=== PATIENT | female | born 1975 | race Caucasian/White ===

== ENCOUNTER 2020-05-24 09:45 | Outpatient (REF) | payer OTHER, SELFPAY ==
--- NOTE | 2020-05-24 09:50 | MM_ITS ---
EXAMINATION: MM DIAGNOSTIC DIGITAL BREAST TOMOSYNTHESIS, BILATERAL CLINICAL INFORMATION: Status post right breast lumpectomy with radiation therapy. COMPARISON: Mammography: April 25, 2019, January 10, 2019, and December 27, 2018. TECHNIQUE: Digital breast tomosynthesis is performed in both the craniocaudal and mediolateral oblique views along with computer-aided detection (CAD). Synthesized 2D images are generated from the tomosynthesis. Spot magnification views of the right breast in craniocaudal and 90 degree mediolateral views also performed. FINDINGS: There are scattered areas of fibroglandular density (ACR BI-RADS breast composition Category b). Postsurgical changes seen within the right breast. No new abnormal dominant mass is seen within either breast. No suspicious grouping of microcalcifications is seen. Results are provided to the patient at time of visit by the technologist. MM/MM tomosynthesis diagnostic BI IMPRESSION: Postsurgical change right breast. No specific mammographic evidence of malignancy within the left breast. ASSESSMENT: BI-RADS 2: Benign RECOMMENDATION: Diagnostic mammography at time of next annual exam, due in 12 months. This patient's information was entered into a reminder system with a target due date for their next mammogram.
== END 2020-05-24 09:46 | disposition home or self-care (01) ==
LOC: HO.MAMMO 09:45
PROVIDERS: Visit Provider Internal Medicine Medical Oncology
DX: C50.911 Malignant neoplasm of unspecified site of right female breast (principal)
CPT/HCPCS: 77062; 77066

== ENCOUNTER 2020-12-27 07:54 | Outpatient (REF) | payer OTHER, SELFPAY ==
[2020-12-27 11:27] LABS: MANUAL DIFF FLAG NO
[2020-12-27 11:31] LABS: Basophils Percent Auto 0.3 % (0-2); Eosinophils Absolute Auto 0.3 X10*3/uL (0.0-0.4); Eosinophils Percent Auto 3.2 % (0-4); Hematocrit 42.8 % (37-47); Hemoglobin 13.9 g/dl (12.0-16.0); Imm Gran Abs Auto 0.09 X10*3/uL (0.00-0.03); Imm Gran Pct Auto 0.9 % (0.0-0.4); Lymphocytes Percent Auto 19.7 % (20-40); Mean Corpuscular HGB Conc 32.5 g/dl (31.0-35.0); Mean Corpuscular Hemoglobin 27.3 pg (27.0-33.0); Mean Corpuscular Volume 83.9 fL (80-98); Monocytes Absolute Auto 0.5 X10*3/uL (0.1-1.2); Monocytes Percent Auto 5.2 % (2-11); Neutrophils Absolute Auto 7.2 X10*3/uL (2.0-8.3); Neutrophils Percent Auto 70.7 % (45-73); Platelet Count 312 X10*3/uL (160-400); Red Cell Distribution Width 13.5 % (11.0-16.0); White Blood Count 10.1 X10*3/uL (4.8-10.8)
[2020-12-27 11:59] LABS: Alanine Aminotransferase 13 U/L (0-31); Albumin Level 4.2 g/dL (3.5-5.0); Anion Gap 17 (12-20); Aspartate Amino Transferase 15 U/L (5-31); Bilirubin Total 0.3 mg/dL (0.0-1.0); Blood Urea Nitrogen 14 mg/dL (9-16); Calcium 9.4 mg/dL (8.4-10.2); Carbon Dioxide 20 mmol/L (22-29); Chloride 107 mmol/L (96-108); Cholesterol 274 mg/dL; Estimated Glomerular Filt Rate > 60; Glucose Fasting 95 mg/dL (60-99); HDL Cholesterol 44 mg/dL; Potassium 4.2 mmol/L (3.3-5.1); Sodium 140 mmol/L (135-145); Total Protein 6.9 g/dL (6.5-8.0); Triglycerides 685 mg/dL
[2020-12-27 12:00] LABS: Alkaline Phosphatase 105 U/L (39-117)
[2020-12-27 12:09] LABS: Ferritin 82 ng/mL (10-250)
== END 2020-12-27 07:55 | disposition home or self-care (01) ==
LOC: HO.HMGCLDS 07:54
PROVIDERS: PCP Internal Medicine Medical Oncology; Visit Provider Internal Medicine Medical Oncology
DX: I10 Essential (primary) hypertension (principal); D64.9 Anemia, unspecified; E78.2 Mixed hyperlipidemia; E66.01 Morbid (severe) obesity due to excess calories
CPT/HCPCS: 36415; 80053; 80061; 82728; 85025

== ENCOUNTER 2021-03-11 09:29 | Outpatient (REF) | payer BC, SELFPAY ==
--- NOTE | ~2021-03-11 | XR_ITS ---
EXAMINATION: XR KNEE, RIGHT CLINICAL INFORMATION: Acute right knee pain. COMPARISON: None TECHNIQUE: Four views of the right knee. FINDINGS: Tricompartmental degenerative changes are seen. There is mild narrowing of the medial compartment with some tiny distal femoral osteophytes. Lateral compartment is not narrowed, but there are lateral marginal osteophytes from the tibial plateau and the distal femur. Some mild posterior osteophytes are noted arising from the patella and there is a small joint effusion present. XR/XR knee RT 4V IMPRESSION: Mild tricompartmental degenerative changes. No evidence of an acute osseous traumatic injury.
== END 2021-03-11 09:30 | disposition home or self-care (01) ==
LOC: HO.XRAY 09:29
PROVIDERS: PCP Internal Medicine Medical Oncology; Visit Provider Internal Medicine Medical Oncology
DX: M25.561 Pain in right knee (principal)
CPT/HCPCS: 73564

== ENCOUNTER 2021-04-25 08:53 | Outpatient (REF) | payer BC, SELFPAY ==
[2021-04-25 11:52] LABS: MANUAL DIFF FLAG NO
[2021-04-25 12:11] LABS: Basophils Percent Auto 0.4 % (0-2); Eosinophils Absolute Auto 0.3 X10*3/uL (0.0-0.4); Hematocrit 41.9 % (37-47); Hemoglobin 13.9 g/dl (12.0-16.0); Imm Gran Abs Auto 0.05 X10*3/uL (0.00-0.03); Imm Gran Pct Auto 0.6 % (0.0-0.4); Lymphocytes Absolute Auto 2.3 X10*3/uL (1.2-4.9); Lymphocytes Percent Auto 27.9 % (20-40); Mean Corpuscular HGB Conc 33.2 g/dl (31.0-35.0); Mean Corpuscular Hemoglobin 27.6 pg (27.0-33.0); Mean Corpuscular Volume 83.3 fL (80-98); Mean Platelet Volume 9.6 fL (9.4-12.3); Monocytes Absolute Auto 0.4 X10*3/uL (0.1-1.2); Monocytes Percent Auto 4.9 % (2-11); Neutrophils Absolute Auto 5.2 X10*3/uL (2.0-8.3); Neutrophils Percent Auto 62.2 % (45-73); Platelet Count 302 X10*3/uL (160-400); Red Blood Count 5.03 X10*6/uL (4.20-5.50); Red Cell Distribution Width 13.8 % (11.0-16.0); White Blood Count 8.3 X10*3/uL (4.8-10.8)
[2021-04-25 12:23] LABS: Alanine Aminotransferase 23 U/L (0-31); Albumin Level 4.1 g/dL (3.5-5.0); Alkaline Phosphatase 80 U/L (39-117); Anion Gap 11 (12-20); Aspartate Amino Transferase 21 U/L (5-31); Bilirubin Total 0.5 mg/dL (0.0-1.0); Blood Urea Nitrogen 8 mg/dL (9-16); Calcium 9.3 mg/dL (8.4-10.2); Carbon Dioxide 26 mmol/L (22-29); Chloride 107 mmol/L (96-108); Cholesterol 274 mg/dL; Estimated Glomerular Filt Rate > 60; Glucose Fasting 104 mg/dL (60-99); HDL Cholesterol 50 mg/dL; Potassium 4.3 mmol/L (3.3-5.1); Sodium 140 mmol/L (135-145); Total Protein 6.9 g/dL (6.5-8.0); Triglycerides 465 mg/dL
== END 2021-04-25 08:54 | disposition home or self-care (01) ==
LOC: HO.HMGCLDS 08:53
PROVIDERS: PCP Internal Medicine Medical Oncology; Visit Provider Internal Medicine Medical Oncology
DX: D64.9 Anemia, unspecified (principal); E78.2 Mixed hyperlipidemia; I10 Essential (primary) hypertension
CPT/HCPCS: 36415; 80053; 80061; 85025

== ENCOUNTER → 2021-05-06 08:10 | Outpatient (BNVA) | payer BC, SELFPAY | PROVIDERS: PCP Internal Medicine Medical Oncology; Visit Provider Surgery ==

== ENCOUNTER 2021-05-27 06:10 | Outpatient (REF) | payer BC, SELFPAY ==
--- NOTE | ~2021-05-27 | XR_ITS ---
EXAMINATION: XR CHEST CLINICAL INFORMATION: Obesity COMPARISON: None TECHNIQUE: 2 views of the chest were obtained. FINDINGS: The cardiac and mediastinal contours are normal. The lungs are clear. There is no pleural effusion. There are mild degenerative changes of the spine and curvature of the lower thoracic spine to the right. There are surgical clips projecting over the right breast. XR/XR chest 2V IMPRESSION: No evidence for acute disease in the chest.
[2021-05-27 06:20] LABS: MANUAL DIFF FLAG NO
--- NOTE | 2021-05-27 07:12 | ECG_ITS ---
Test Reason : sob Blood Pressure : / mmHG Vent. Rate : 055 BPM Atrial Rate : 055 BPM P-R Int : 200 ms QRS Dur : 070 ms QT Int : 424 ms P-R-T Axes : 022 002 006 degrees QTc Int : 405 ms Sinus bradycardia Low voltage QRS Borderline ECG When compared with ECG of 29-DEC-2009 13:12, Vent. rate has decreased BY 36 BPM Nonspecific T wave abnormality no longer evident in Lateral leads Referred By: Tom Cheema Electronically Signed By:CHERYL GIMENEZ MD
[2021-05-27 07:16] LABS: Basophils Percent Auto 0.2 % (0-2); Eosinophils Absolute Auto 0.2 X10*3/uL (0.0-0.4); Eosinophils Percent Auto 2.7 % (0-4); Hematocrit 43.1 % (37.0-47.0); Hemoglobin 14.2 g/dl (12.0-16.0); Imm Gran Abs Auto 0.02 X10*3/uL (0.00-0.03); Imm Gran Pct Auto 0.2 % (0.0-0.4); Lymphocytes Absolute Auto 1.9 X10*3/uL (1.2-4.9); Lymphocytes Percent Auto 22.1 % (20-40); Mean Corpuscular HGB Conc 32.9 g/dl (31.0-35.0); Mean Corpuscular Hemoglobin 27.4 pg (27.0-33.0); Monocytes Absolute Auto 0.4 X10*3/uL (0.1-1.2); Monocytes Percent Auto 4.6 % (2-11); Neutrophils Percent Auto 70.2 % (45-73); Platelet Count 317 X10*3/uL (160-400); Red Blood Count 5.19 X10*6/uL (4.20-5.50); Red Cell Distribution Width 13.5 % (11.0-16.0); White Blood Count 8.5 X10*3/uL (4.8-10.8)
[2021-05-27 07:25] LABS: Estimated Average Glucose 114 mg/dL; Hemoglobin A1c % 5.6 %
[2021-05-27 07:42] LABS: Alanine Aminotransferase 23 U/L (0-31); Albumin Level 4.3 g/dL (3.5-5.0); Alkaline Phosphatase 80 U/L (39-117); Anion Gap 13 (12-20); Aspartate Amino Transferase 20 U/L (5-31); Bilirubin Total 0.3 mg/dL (0.0-1.0); Blood Urea Nitrogen 14 mg/dL (9-16); C Reactive Protein 0.56 mg/dL (< or = 0.50); Calcium 9.7 mg/dL (8.4-10.2); Carbon Dioxide 26 mmol/L (22-29); Chloride 104 mmol/L (96-108); Cholesterol 182 mg/dL; Estimated Glomerular Filt Rate > 60; Glucose Random 119 mg/dL (60-115); HDL Cholesterol 45 mg/dL; Iron 43 mcg/dL (30-160); LDL Cholesterol Calculated 83 mg/dl; Percent Iron Saturation 13 % (15-50); Potassium 4.1 mmol/L (3.3-5.1); Sodium 139 mmol/L (135-145); Total Iron Binding Capacity 337 mcg/dL (228-428); Total Protein 6.9 g/dL (6.5-8.0); Triglycerides 270 mg/dL; Unsaturated Iron Binding 294 ug/dL
[2021-05-27 08:07] LABS: Ferritin 78 ng/mL (10-250); Insulin 40 uU/mL (2-29); TSH reflex Free T4 4.41 uIU/mL (0.32-4.0); Vitamin D 25-OH Total 27.9 ng/mL (>30)
[2021-05-27 08:14] LABS: Folate 15.2 ng/mL (> or = 4.0); Vitamin B12 391 pg/mL (200-900)
[2021-05-27 08:42] LABS: Free T4 (Free Thyroxine) 0.71 ng/dL (0.71-1.85)
[2021-05-30 12:01] LABS: Calcium (PTHI) 9.9 mg/dL (8.6-10.2); PTHI 39 pg/mL (14-64)
[2021-05-31 02:22] LABS: Zinc 78 mcg/dL (60-130)
[2021-05-31 21:56] LABS: Vitamin A 73 mcg/dL (38-98)
[2021-06-01 16:56] LABS: Vitamin B1 12 nmol/L (8-30)
== END 2021-05-27 06:11 | disposition home or self-care (01) ==
LOC: HO.LAB 06:10
PROVIDERS: PCP Internal Medicine Medical Oncology; Visit Provider Surgery
DX: E66.01 Morbid (severe) obesity due to excess calories (principal); E78.5 Hyperlipidemia, unspecified; I10 Essential (primary) hypertension; K21.9 Gastro-esophageal reflux disease without esophagitis
CPT/HCPCS: 36415; 71046; 80053; 80061; 82306; 82607; 82728; 82746; 83036; 83525; 83540; 83970; 84425; 84439; 84443; 84590; 84630; 85025; 86140; 93005

== ENCOUNTER → 2021-06-01 08:03 | Outpatient (BNVA) | payer BC, SELFPAY | PROVIDERS: PCP Internal Medicine Medical Oncology; Visit Provider Surgery ==

== ENCOUNTER 2021-06-03 09:24 | Outpatient (REF) | payer BC, SELFPAY ==
[2021-06-05 15:03] LABS: H Pylori Breath Test Negative (Negative)
== END 2021-06-03 09:25 | disposition home or self-care (01) ==
LOC: HO.LNP 09:24
PROVIDERS: Surgery; PCP Internal Medicine Medical Oncology; Visit Provider Physician Assistant
DX: E66.01 Morbid (severe) obesity due to excess calories (principal); I10 Essential (primary) hypertension; E78.5 Hyperlipidemia, unspecified; K21.9 Gastro-esophageal reflux disease without esophagitis; Z11.0 Encounter for screening for intestinal infectious diseases
CPT/HCPCS: 83013

== ENCOUNTER → 2021-06-06 08:21 | Outpatient (BNVA) | payer BC, SELFPAY | PROVIDERS: PCP Internal Medicine Medical Oncology; Visit Provider Dietitian, Registered | DX: E66.01 Morbid (severe) obesity due to excess calories (principal) | CPT/HCPCS: 97802 ==

== ENCOUNTER 2021-06-23 07:55 | Outpatient (REF) | payer BC, SELFPAY ==
--- NOTE | ~2021-06-23 | FL_ITS ---
EXAMINATION: XR FLUOROSCOPY UPPER GI WITH AIR CLINICAL INFORMATION: Obesity COMPARISON: None TECHNIQUE: Fluoroscopic assessment of the upper GI tract was performed in various upright and supine/prone obliquities utilizing thin and thick high density barium contrast material and effervescent granules. FINDINGS: Normal oral bolus control and transfer with posterior tilt of the epiglottis. No cricopharyngeal abnormality. The esophagus was normal in course, caliber, and contour. There was normal distensibility with no fixed segment of narrowing. No focal mucosal abnormality was identified. No significant esophageal dysmotility was observed. Contrast passed freely across the gastroesophageal junction into the stomach. No significant hiatal hernia. There was normal distensibility of the stomach with no focal abnormality identified. There was prompt gastric emptying into the duodenum which demonstrated a normal appearance. Minimal gastroesophageal reflux was observed. FLUOROSCOPY TIME: 1.7 minutes DOSE AREA PRODUCT: 28.563 Gy-cm2 (pathak-centimeter squared) FL/FL upper GI w air IMPRESSION: Minimal gastroesophageal reflux noted. Otherwise normal upper GI examination.
--- NOTE | ~2021-06-23 | US_ITS ---
EXAMINATION: US COMPLETE ABDOMEN WITH LIVER ELASTOGRAPHY CLINICAL INFORMATION: Morbid obesity due to excess calories. COMPARISON: None. TECHNIQUE: Real-time imaging of the abdominal viscera. Noninvasive ultrasound liver fibrosis assessment is performed using Mars ElastPQ point quantification shear wave elastography (pSWE) with a C5-2 MHz transducer. Multiple elastography samples are obtained. FINDINGS: PANCREAS: Normal. The visualized pancreatic head and body are normal in appearance. The remainder of the pancreas is obscured from visualization by the overlying bowel gas. ABDOMINAL AORTA: The proximal, middle, and distal aortic segments are normal in caliber. INFERIOR VENA CAVA: Visualized portions are normal. LIVER: The liver demonstrates prominent in size with normal Contour and increased echogenicity. No focal lesion or intrahepatic biliary duct dilatation. The right lobe measures 20.8 cm in length. The left lobe measures 14.8 cm in length. Portal flow is towards the liver (hepatopetal). Shear wave liver elastography median stiffness is 2.17 m/s (reference: normal median stiffness is 1.3 m/s or less). IQR/median stiffness to assess sampling precision is 0.08 (reference: good quality data set is IQR/median stiffness of 0.15 or less). GALLBLADDER: Normal. The gallbladder is physiologically distended without evidence of stones, sludge, polyps, wall thickening or pericholecystic fluid. COMMON BILE DUCT: Normal in caliber measuring 0.4 cm in diameter. RIGHT KIDNEY: Normal. No hydronephrosis. No renal calculi or focal parenchymal lesions. The kidney measures 12.4 cm in maximum dimension. LEFT KIDNEY: Normal. No hydronephrosis. No renal calculi or focal parenchymal lesions. The kidney measures 12.5 cm in maximum dimension. SPLEEN: Normal. The spleen measures 13.6 cm in maximum dimension. FREE FLUID: None. US/US abdomen comp w elastography IMPRESSION: 1. Mild hepatomegaly with hepatic steatosis. 2. Liver elastography: Measuremensts are consistent with compensated advanced chronic liver disease. REFERENCE: Society of Radiologists in Ultrasound Liver Stiffness Thresholds (2020): LIVER STIFFNESS THRESHOLDS: *Liver Stiffness equal or less than 1.3 m/s: High probability of being normal. *Liver Stiffness less than 1.7 m/s: In the absence of other known clinical signs, rules out compensated advanced chronic liver disease. *Liver Stiffness 1.7-2.1 m/s: Suggestive of compensated advanced chronic liver disease but need further test for confirmation. *Liver Stiffness over 2.1 m/s: Rules in compensated advanced chronic liver disease. *Liver Stiffness over 2.4 m/s: Suggestive of clinically significant portal hypertension. QUALITY OF DATA SET: *IQR/Median value equal or less than 0.15 implies a quality data set. *IQR/Median value over 0.15 implies a poor quality data set. SIGNIFICANT CHANGE FROM PRIOR EXAM: Significant change if liver stiffness measurement is 10% or greater from prior exam. OTHER CONSIDERATIONS: The stage of liver fibrosis may be overestimated in the setting of acute hepatitis, liver inflammation, elevated liver function tests, hepatic vascular congestion, obstructive cholestasis, non-fasting state, and infiltrative diseases such as amyloidosis and lymphoma. In some patients with NAFLD, the liver stiffness thresholds for compensated advanced chronic liver disease may be lower. In causes other than viral hepatitis and NAFLD, liver stiffness thresholds are not well established.
== END 2021-06-23 07:56 | disposition home or self-care (01) ==
LOC: HO.US 07:55
PROVIDERS: PCP Internal Medicine Medical Oncology; Visit Provider Surgery
DX: Z01.818 Encounter for other preprocedural examination (principal); E66.01 Morbid (severe) obesity due to excess calories; K21.9 Gastro-esophageal reflux disease without esophagitis; E78.5 Hyperlipidemia, unspecified; I10 Essential (primary) hypertension
CPT/HCPCS: 74246; 76705; 76981

== ENCOUNTER → 2021-07-01 08:08 | Outpatient (BNVA) | payer BC, SELFPAY | PROVIDERS: PCP Internal Medicine Medical Oncology; Visit Provider Dietitian, Registered | DX: E66.01 Morbid (severe) obesity due to excess calories (principal) | CPT/HCPCS: 97803 ==

== ENCOUNTER → 2021-07-04 08:05 | Outpatient (BNVA) | payer BC, SELFPAY | PROVIDERS: PCP Internal Medicine Medical Oncology; Visit Provider Surgery ==

== ENCOUNTER → 2021-07-28 08:07 | Outpatient (BNVA) | payer BC, SELFPAY | PROVIDERS: PCP Internal Medicine Medical Oncology; Referring Provider Physician Assistant; Visit Provider Dietitian, Registered | DX: E66.01 Morbid (severe) obesity due to excess calories (principal); Z68.42 Body mass index [BMI] 45.0-49.9, adult | CPT/HCPCS: 97803 ==

== ENCOUNTER → 2021-08-19 07:59 | Outpatient (BNVA) | payer BC, SELFPAY | PROVIDERS: PCP Internal Medicine Medical Oncology; Visit Provider Surgery ==

== ENCOUNTER 2021-12-13 10:01 | Outpatient (REF) | payer BC, SELFPAY ==
[2021-12-13 16:50] LABS: CT PCR NOT DETECTED (Not Detect.); NG PCR NOT DETECTED (Not Detect.)
[2021-12-14 09:21] LABS: BV Int Neg Control Negative (Negative); BV Int Pos Control Positive (Positive)
[2021-12-16 06:25] LABS: HPV mRNA E6/E7 rflx Not Detected (Not Detected)
== END 2021-12-13 10:02 | disposition home or self-care (01) ==
LOC: HO.LAB 10:01
PROVIDERS: PCP Internal Medicine Medical Oncology; Visit Provider Advanced Practice Midwife
DX: Z01.419 Encounter for gynecological examination (general) (routine) without abnormal findings (principal); Z11.51 Encounter for screening for human papillomavirus (HPV); R10.2 Pelvic and perineal pain
CPT/HCPCS: 87480; 87491; 87510; 87591; 87624; 87660; 88142

== ENCOUNTER 2023-07-17 09:52 | Outpatient (AMB) | payer BC, SELFPAY ==
--- NOTE | 2023-07-17 09:55 | A.OFFVIS_ITS ---
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 Doing well with no concerns. Seen by oncology at [facility]. Mammograms yearly at [facility] patient reports are normal. On Depo Lupron for menstrual cycle suppression best choice per oncologist due to her factor 5 Leiden. She tries to eat healthy and stays active with exercise. She is concerned about her weight gain since being on Depo Lupron, she has a consult with bariatric surgery this month. Regular monthly menses. Currently is sexually active. She denies vaginal itching and irritation. STI screening offered; she declines. Last pap smear 2021,, negative. proir-HPV+ PFS Medical History (Updated 07/17/23 @ 10:19 by Sheyla Auguste CNM) Factor V Leiden Ductal carcinoma in situ (DCIS) of right breast Morbid (severe) obesity due to excess calories Anxiety Depression GERD (gastroesophageal reflux disease) Hyperlipidemia Hypertension Morbid obesity Surgical History Hx of excision of dermoid cyst Hx of lumpectomy Family History Mother Hypertension Father Crohn disease Diabetes Hypertension Hyperlipidemia Obesity Sister Celiac disease Maternal Grandmother Melanoma Social History Alcohol intake: never Patient Tobacco Use Status: Former Tobacco user Current occupational status: employed 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 Female Reproductive History Menstrual Age of Menarche: 14 Total pregnancies: 0 Date of last pap smear: 12/13/21 (neg pap and hpv) Date of Mammogram: 05/24/20 (Birad 2) History of abnormal mammogram: Yes Review of Systems Const All systems reviewed & are unremarkable except as noted in HPI and below Reports as per HPI Eyes Reports no additional complaints ENT Reports no additional complaints Card Reports no additional complaints Resp Reports no additional complaints GI Reports as per HPI and Reports no additional complaints Reports as per HPI Musc Reports no additional complaints Skin/Breast Reports as per HPI Neuro Reports no additional complaints Psych Reports no additional complaints Endo Reports no additional complaints Donta/Lymph Reports no additional complaints Aller/Immun Reports no additional complaints Physical Exam Vital Signs: Last Vital Signs BP 100/68 07/17/23 09:56 BMI result Body Mass Index 51.6 Const General: cooperative, healthy appearing, no acute distress, well developed and alert Orientation/consciousness: patient oriented x3 HEENT Head: Yes normal to inspection Eyes General: appearance normal, both eyes and all related structures Neck Neck: Yes normal visual inspection Thyroid: Thyroid normal Chest Other: Right breast scar Chest palpation & inspection: normal inspection of the chest and other (no puckering, dimpling, peau de orange, retraction, discharge, masses) Breast/axilla inspection: normal inspection of the breasts Breast/axilla palpation: normal palpation of the breasts Resp Effort & Inspection: normal respiratory effort GI Inspection: Yes normal to inspection and Yes obesity Palpation (GI): Soft to palpation Rectal Exam - Female: deferred General: Yes bladder normal to palpation External Female Exam: normal external appearance and normal appearance of the urethra Speculum Exam - Vagina: normal appearance of the vagina, normal palpation and normal vaginal discharge Speculum Exam - Cervix: normal appearance of the cervix and normal palpation Bimanual exam- vagina & uterus: normal bimanual exam, normal palpation, uterine size normal, bladder normal to palpation, normal palpation and non-tender Bimanual Exam- Adnexa, other: no masses Skin General skin exam: no rashes or lesions noted Rashes: no rashes Neuro General: patient oriented x3 Cognition (Neuro): normal cognition Extrem General: Yes normal to inspection Psych Attitude: cooperative Thought process: Normal thought process present Assessment & Plan Assessment & Plan (1) Encounter for well woman exam with routine gynecological exam: Code(s): Z01.419 - Encounter for gynecological examination (general) (routine) without abnormal findings Plan Discussed: Current recommendations for pap smears per ASCCP guidelines. Breast awareness and periodic breast exams. Maintain a healthy lifestyle including a well balanced diet and routine exercise. Mammogram yearly. Colonoscopy >45, or at risk sooner. Advised to discuss with her primary care All of her questions and concerns were addressed to the best of my ability. 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 This note is constructed using voice recognition software. While every effort has been made to ensure accuracy, personnel representative errors may have been included. Coding Level of Care Code Est Pt Prev Care 40-64y(15691) Diagnoses Encounter for well woman exam with routine gynecological exam Z01.419
[2023-07-17 09:56] VITALS: BP 100/68; BMI 51.6
== END 2023-07-17 10:28 | disposition home or self-care (01) ==
LOC: HO.HWS 09:52
PROVIDERS: PCP Internal Medicine Medical Oncology; Visit Provider Advanced Practice Midwife
DX: Z01.419 Encounter for gynecological examination (general) (routine) without abnormal findings (principal)
CPT/HCPCS: 99396

== ENCOUNTER → 2023-07-17 09:52 | Outpatient (BNVA) | payer BC, SELFPAY | PROVIDERS: PCP Internal Medicine Medical Oncology; Visit Provider Advanced Practice Midwife ==

== ENCOUNTER 2024-05-05 08:05 | Outpatient (REF) | payer BC, SELFPAY ==
[2024-05-05 10:12] LABS: MANUAL DIFF FLAG NO
[2024-05-05 10:29] LABS: Basophils Percent Auto 0.4 % (0-2); Eosinophils Absolute Auto 0.3 X10*3/uL (0.0-0.4); Eosinophils Percent Auto 3.4 % (0-4); Hematocrit 42.4 % (37.0-47.0); Hemoglobin 13.9 g/dl (12.0-16.0); Imm Gran Abs Auto 0.04 X10*3/uL (0.00-0.03); Imm Gran Pct Auto 0.4 % (0.0-0.4); Lymphocytes Absolute Auto 2.6 X10*3/uL (1.2-4.9); Lymphocytes Percent Auto 26.9 % (20-40); Mean Corpuscular HGB Conc 32.8 g/dl (31.0-35.0); Mean Corpuscular Hemoglobin 28.1 pg (27.0-33.0); Mean Corpuscular Volume 85.7 fL (80.0-98.0); Mean Platelet Volume 10.2 fL (9.4-12.3); Monocytes Absolute Auto 0.4 X10*3/uL (0.1-1.2); Monocytes Percent Auto 4.6 % (2-11); Neutrophils Absolute Auto 6.2 x10*3/uL (2.0-8.3); Neutrophils Percent Auto 64.3 % (45-73); Platelet Count 325 X10*3/uL (160-400); Red Blood Count 4.95 X10*6/uL (4.20-5.50); Red Cell Distribution Width 13.1 % (11.0-16.0); White Blood Count 9.6 X10*3/uL (4.8-10.8)
[2024-05-05 11:29] LABS: Anion Gap 12 (12-20)
[2024-05-05 11:34] LABS: Albumin Level 4.1 g/dL (3.5-5.0); Alkaline Phosphatase 80 U/L (39-117); Bilirubin Total 0.5 mg/dL (0.0-1.0); Blood Urea Nitrogen 12 mg/dL (9-16); Calcium 9.6 mg/dL (8.4-10.2); Carbon Dioxide 27 mmol/L (22-29); Chloride 107 mmol/L (96-108); Cholesterol 188 mg/dL (<200); Estimated Glomerular Filt Rate > 60; Glucose Fasting 134 mg/dL (60-99); HDL Cholesterol 49 mg/dL (>40); LDL Cholesterol Calculated 91 mg/dL (<100); Potassium 3.8 mmol/L (3.3-5.1); Sodium 142 mmol/L (135-145); Total Protein 6.6 g/dL (6.5-8.0); Triglycerides 242 mg/dL (<150)
[2024-05-05 11:48] LABS: Ferritin 115 ng/mL (10-250); Free T4 (Free Thyroxine) 0.79 ng/dL (0.71-1.85); Thyroid Stimulating Hormone 4.12 uIU/mL (0.32-4.0)
[2024-05-05 13:08] LABS: Alanine Aminotransferase 44 U/L (0-31); Aspartate Amino Transferase 35 U/L (5-31)
== END 2024-05-05 08:06 | disposition home or self-care (01) ==
LOC: HO.HMGCLDS 08:05
PROVIDERS: PCP Internal Medicine Medical Oncology; Visit Provider Internal Medicine Medical Oncology
DX: C50.911 Malignant neoplasm of unspecified site of right female breast (principal); E66.01 Morbid (severe) obesity due to excess calories; D68.51 Activated protein C resistance; E03.9 Hypothyroidism, unspecified; D59.9 Acquired hemolytic anemia, unspecified
CPT/HCPCS: 36415; 80053; 80061; 82728; 84439; 84443; 85025

== ENCOUNTER 2025-02-17 07:55 | Outpatient (AMB) | payer OTHER, SELFPAY ==
--- OUTSIDE RECORDS SUMMARY | 2025-02-17 07:57 | XMS_ITS | Patient Health Record ---
Author Organization [facility] Address [address] [place] [address] Care Team Providers Care Wheel Lacer And Truer Name Role Phone Bhanu Armendariz MD Primary Care Provider Unavailab Mia Shanks Unavailable [phone] Allergies No Known Allergies Reason For Referral No Information Medications Medication SIG (Take, Route, Frequency, Duration) Notes Start Date End Date Status Metoprolol Tartrate 50 MG 1 tablet with food Orally Twice a day; Duration: 30 day(s) Active hydrALAZINE HCl 10 MG 1 tablet with food Orally Four times a day; Duration: 30 day(s) Active Ciclopirox 8 % APPLY DAILY TO SKIN TO AFFECTED AREA EVERY DAY FOR 30 DAYS; Duration: 30 Active Lupron Active ARIPiprazole 5 MG 1 tablet Orally Once a day; Duration: 30 day(s) Active Sertraline HCl 100 MG 1 tablet Orally On ce a day; Duration: 30 day(s) Active Atorvastatin Calcium 10 MG 1 tablet Oral ly Once a day; Duration: 30 day(s) Active Anastrozole 1 MG 1 tablet Orally Once a day; Duration: 30 day(s) Active Immunizations Vaccine Route Administration Date Status Comme nts Influenza Unknown 01/29/2025 Refused Social History Tobacco Use: Social History Observation Description Date Details (start date - stop date) Never Smoker NA - NA Tobacco use other than smoking: Question Answer Notes Are you an other tobacco user? No Tobacco Control (Standard) Question Answer Notes Tobacco use: Nonsmoker Additional Findings: Tobacco non-user Ex-cigaret te smoker AUDIT-C (Standard) Question Answer Notes Did you have a drink containing alcohol in the p ast year? No Points 0 Interpretation Negative Problems Problem Type SNOMED Code ICD Code Onset Dates Problem Status W/U Status Risk Notes Problem Tinea unguium (115757103) Tinea unguium (B35.1) Active confirmed Chronic,Rx management (4) Vital Signs Blood pressure diastolic 81 mm Hg 01/29/2025 Height 5ft5in in 01/29/2025 Blood pressure systolic 124 mm Hg 01/29/2025 Weight 300 lbs 01/29/2025 BMI 49.92 kg/m2 01/29/2025 Encounters Encounter [facility] [address] 06/02/2024 Mia Black Tinea unguium B35.1 ; Pain in right toe(s) M79.674 and Pain in left toe(s) M79.[address] [address] 01/29/2025 Mia Black Tinea unguium B35.1 ; Pain in right toe(s) M79.674 and Pain in left toe(s) M79.[address] [address] 10/30/2024 Mia Black [address] [address] 01/27/2025 Mia Black Assessments Encounter Date Diagnosis (ICD Code) Assessment Notes Treatment Notes Treatment Clinical Notes Section Notes 06/02/2024 Tinea unguium (ICD-10 - B35.1) Chronic,Rx management (4) 06/02/2024 Pain in right toe(s) (ICD-10 - M79.674) 01/29/2025 Tinea unguium (ICD-10 - B35.1) Chronic,Rx management (4) EBM Medical prescription ordered and faxed 01/29/2025 Pain in right toe(s) (ICD-10 - M79.674) 06/02/2024 Pain in left toe(s) (ICD-10 - M79.675) 01/29/2025 Pain in left toe(s) (ICD-10 - M79.675) Plan Of Treatment Pending Test Test Name Order Date *Liver Function Test (LFT) 03/06/2022 [id number] Plate 05/29/2022 [id number]-Iixvwisp Plate 06/04/2023 72252- Debride <25 sq cm 06/12/2022 Next Appt Details Provider Name:Mia Tian , 07/23/2025 08:00:00 AM, [address] [place], [address], Insurance Providers Payer Name Payer Address Payer Phone Subscriber Number Group Number Insured Name Patient Relationship to Insured Coverage Start Date Coverage End Date [employer] [address] [facility] [id number] Alexa Beauchamp Self - patient is the insured Medical (General) History Medical History History ICD Code Anxiety Cancer Depression Diverticulosis Headaches/Migraines High blood pressure Chicken pox Transfusions Surgical History Surgery Date(Month/Year) lumpectomy 06/2019
--- NOTE | 2025-02-17 08:01 | A.OFFVIS_ITS ---
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: Fur Storage Clerk Present Allergies No Known Allergies Allergy (Verified 02/17/25 08:09) Medication List - Last Reconciled 02/17/25 by Sherrell Dejesus LPN anastrozole 1 mg PO DAILY atorvastatin (Lipitor) 10 mg PO DAILY bupropion HCl XL (Wellbutrin XL) 300 mg PO QAM cholecalciferol (vitamin D3) 25 mcg PO DAILY docusate sodium (Stool Softener) 100 mg PO DAILY fluoxetine (Prozac) 40 mg PO DAILY hydralazine 40 mg PO leuprolide (Lupron Depot) 7.5 mg IM Q4W metoprolol succinate ER 100 mg PO DAILY multivitamin with minerals 1 cap PO DAILY Is last menstrual period known: No Patient : No HPI Comments Details: Patient is a premenopausal woman presenting for annual examination. 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 On Depo Lupron-[facility]. Hx. DSIC, Factor V Leiden. Currently is sexually active. She denies vaginal itching or irritation. STI screening offered; she accepts, declines blood work. She tries to eat healthy and stays active with exercise. Denies family history of breast, ovarian or colon cancer. Last pap smear 2021, negative. Mammogram: 2019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 Female Reproductive History Menstrual Age of Menarche: 14 control method: none Total pregnancies: 0 Date of last pap smear: 12/14/21 History of abnormal pap smear: No History of STI: No Date of Mammogram: 06/03/25 History of abnormal mammogram: Yes Review of Systems Const All systems reviewed & are unremarkable except as noted in HPI and below Reports as per HPI Eyes Reports no additional complaints ENT Reports no additional complaints Card Reports no additional complaints Resp Reports no additional complaints GI Reports as per HPI and Reports no additional complaints Reports as per HPI Musc Reports no additional complaints Skin/Breast Reports as per HPI Neuro Reports no additional complaints Psych Reports no additional complaints Endo Reports no additional complaints Donta/Lymph Reports no additional complaints Aller/Immun Reports no additional complaints Physical Exam Vital Signs: Last Vital Signs BP 138/84 02/17/25 08:05 BMI result Body Mass Index 48.5 Const General: cooperative, healthy appearing, no acute distress, well developed and alert Orientation/consciousness: patient oriented x3 HEENT Head: Yes normal to inspection Eyes General: appearance normal, both eyes and all related structures Neck Neck: Yes normal visual inspection Thyroid: Thyroid normal Chest Chest palpation & inspection: normal inspection of the chest and other (no puckering, dimpling, peau de orange, retraction, discharge, masses) Breast/axilla inspection: normal inspection of the breasts Breast/axilla palpation: normal palpation of the breasts Resp Effort & Inspection: normal respiratory effort GI Inspection: Yes normal to inspection Palpation (GI): Soft to palpation Rectal Exam - Female: deferred General: Yes bladder normal to palpation External Female Exam: normal external appearance and normal appearance of the urethra Speculum Exam - Vagina: normal appearance of the vagina, normal palpation and normal vaginal discharge Speculum Exam - Cervix: normal appearance of the cervix and normal palpation Bimanual exam- vagina & uterus: normal bimanual exam, normal palpation, uterine size normal, bladder normal to palpation, normal palpation and non-tender Bimanual Exam- Adnexa, other: no masses Skin General skin exam: no rashes or lesions noted Rashes: no rashes Neuro General: patient oriented x3 Cognition (Neuro): normal cognition Extrem General: Yes normal to inspection Psych Attitude: cooperative Thought process: Normal thought process present Assessment & Plan Assessment & Plan (1) Encounter for annual routine gynecological examination: Code(s): Z01.419 - Encounter for gynecological examination (general) (routine) without abnormal findings Category: Medical Plan Discussed: Current recommendations for pap smears per ASCCP guidelines. Breast awareness and periodic breast exams. Mammogram yearly. Advised to have [facility] send records yearly. Maintain a healthy lifestyle including a well balanced diet and routine exercise. Use condoms for STI and prevention. GC chlamydia and BV panel obtained. Colonoscopy >45, or at risk sooner. Advised to discuss with her PCP Patient verbalizes understanding and agrees to the plan of care. She was given opportunity to ask questions and all questions were answered to the best of my ability. 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 This note is constructed using voice recognition software. While every effort has been made to ensure accuracy, political reporter errors may have been included. Orders: Orders Bacterial Vaginosis Panel Today Z11.3 - Encounter for screening for infections with a predominantly sexual mode of transmission CT NG by PCR Vag/Cerv Today Z11.3 - Encounter for screening for infections with a predominantly sexual mode of transmission Coding Level of Care Code Est Pt Prev Care 40-64y(62617) Diagnoses Encounter for annual routine gynecological examination Z01.419
[2025-02-17 08:05] VITALS: BP 138/84; BMI 48.5
== END 2025-02-17 09:15 | disposition home or self-care (01) ==
LOC: HO.HWS 07:55
PROVIDERS: PCP Internal Medicine Medical Oncology; Visit Provider Advanced Practice Midwife
DX: Z01.419 Encounter for gynecological examination (general) (routine) without abnormal findings (principal)
CPT/HCPCS: 99396; 99459

== ENCOUNTER 2025-02-17 07:55 | Outpatient (REF) | payer OTHER, SELFPAY ==
[2025-02-17 17:05] LABS: Bacterial Vaginosis PCR POSITIVE (Negative); Candida Group PCR NOT DETECTED (Not Detect); Candida glab krusei PCR NOT DETECTED (Not Detect); Trichomonas vaginalis PCR NOT DETECTED (Not Detect)
[2025-02-17 17:37] LABS: CT PCR NOT DETECTED (Not Detect.); NG PCR NOT DETECTED (Not Detect.)
== END 2025-02-17 07:56 | disposition home or self-care (01) ==
LOC: HO.LNP 07:55
PROVIDERS: PCP Internal Medicine Medical Oncology; Visit Provider Advanced Practice Midwife
DX: Z01.419 Encounter for gynecological examination (general) (routine) without abnormal findings (principal); Z20.2 Contact with and (suspected) exposure to infections with a predominantly sexual mode of transmission; Z11.8 Encounter for screening for other infectious and parasitic diseases; Z79.899 Other long term (current) drug therapy
CPT/HCPCS: 81515; 87491; 87591

== ENCOUNTER 2025-03-05 05:59 | Inpatient (IN) | payer OTHER, SELFPAY ==
--- OUTSIDE RECORDS SUMMARY | 2024-12-17 09:39 | XMS_ITS ---
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 Name Role Phone Bhanu Armendariz III, MD Primary Care Provider Bhanu Armendariz [facility] [phone] REASON FOR VISIT Zepbound denial from [facility] Social History Sex Assigned At : Social History Observation Description Sex Assigned At Female Encounters Encounter Location Date Provider Diagnosis Bhanu Armendariz III, MD [address] [place] [address] [place] [address] 12/17/2024 Bhanu Armendariz Plan Of Treatment Next Appt Details Provider Name:Bhanu Armendariz, 03/06/2025 09:00:00 AM, [address] [place] [address] [place], [address], Provider Name:Bhanu Armendariz, 03/08/2026 02:00:00 PM, [address] [place] [address] [place], [address], Progress Notes * Alexa ROSSDOB:[birth year] (49 yo F)Acc No.[id number]:12/17/2024 Patient: Alexa LEMUS :1975 A ge:49 Y S ex:Female Address:[address] [place] [address] * * Date:
[2025-03-05] VITALS (8 sets, daily range): BP systolic 101–130; BP diastolic 57–80; PULSE 73–106; RESP 16–20; TEMP 36.4–37.1; O2SAT 95–97; BMI 47.8
--- NOTE | ~2025-03-05 | CT_ITS ---
EXAMINATION: CT ABDOMEN AND PELVIS WITH CONTRAST CLINICAL INFORMATION: r/o perirectal abcess, pain, erythema COMPARISON: Abdomen ultrasound on June 23, 2021. TECHNIQUE: Multidetector volumetric images were obtained from the superior aspect of the liver through the pubic symphysis following administration 100 cc of Omnipaque 350 intravenous contrast. Sagittal and coronal reformatted images were obtained on the technologist's workstation. Oral contrast: No This CT examination was performed using dose optimization techniques as appropriate, variously including the following: *Automated exposure control *Adjustment of mA and/or kV according to patient size (this includes techniques or standardized protocols for targeted exams where dose is matched to indication/reason for exam; i.e. extremities or head) *Use of iterative reconstruction technique FINDINGS: LUNG BASES: Lung bases are clear. No pleural effusions. LIVER: Hepatomegaly measuring 22.6 cm. Diffuse decreased echogenicity is compatible with hepatic steatosis. No focal lesions. BILIARY: Normal gallbladder. No biliary ductal dilatation. PANCREAS: Unremarkable. SPLEEN: Spleen measures 13.2 cm. No focal lesions. ADRENAL GLANDS: No nodules. KIDNEYS AND URETERS: No focal renal lesions or hydronephrosis. GASTROINTESTINAL TRACT: No bowel distention. Normal appendix in the right lower quadrant. Scattered diverticula along the sigmoid colon. Note the rectum is mildly low lying. No fat stranding or abscess surrounding the rectum. PERITONEUM/RETROPERITONEUM: No free fluid, fluid collection or free air. PERINEUM: There is an approximately 3.6 x 3.4 cm irregular hypodense area in the left perineum (3:103), surrounded by thick wall and fatty stranding of the local soft tissues. This left perineal abscess/phlegmon extends for approximately 6.8 cm in longest dimension on the sagittal plane (8:79). Note that the abnormal soft tissue surrounding this abscess/phlegmon extends towards the anus, without clear flat plane with the anal margins. ABDOMINAL WALL: Small fat-containing umbilical hernia. LYMPH NODES: No bulky adenopathy. VASCULAR: Mild atherosclerotic disease with calcifications. No abdominal aortic aneurysm. PELVIC VISCERA: Decompressed urinary bladder appears unremarkable. No suspicious pelvic masses. OSSEOUS STRUCTURES: No acute or destructive bone lesions. CT/CT abdomen pelvis w IV con IMPRESSION: 1. Left perineal abscess/phlegmon extending up to 6.8 cm long. Surrounding abnormal soft tissue wall and fat stranding extends towards the anus. No findings to suggest perirectal abscess. 2. Hepatomegaly. Hepatic steatosis. 3. Scattered sigmoid colonic diverticula. Electronically signed by: Yasmani Gaming MD 03/05/2025 09:53 AM EDT
--- NOTE | 2025-03-05 06:32 | ED.SKABFB ---
HPI - Skin/Abscess/Foreign Bdy General Chief complaint: Skin/Abscess/Foreign Body Stated complaint: cyst Time Seen by Provider: 03/05/25 06:10 Source: patient Mode of arrival: ambulatory Limitations: no limitations History of Present Illness ED Provider: Dr. Lila Arizmendi HPI narrative: Patient comes in the emergency room complaining of pain in the left buttocks. Patient states it started 2-3 days ago, gradually getting worse. Patient states that she went to see her PCP and they asked her to come to emergency room for further evaluation. Patient states that she is not sure if it is a cyst or a hemorrhoid. Patient denies fever chills, however, patient states that she has been sweating quite a bit. She is not sure if she is having a fever or it is because of the pain. Denies nausea vomiting or diarrhea. Related Data Home Medications ?Medication ?Instructions ?Recorded ?Confirmed anastrozole 1 mg tablet 1 mg PO DAILY 05/06/21 02/17/25 leuprolide 7.5 mg intramuscular 7.5 mg IM Q4W 12/13/21 02/17/25 syringe kit (Lupron Depot) atorvastatin 10 mg tablet (Lipitor) 10 mg PO DAILY 02/17/25 02/17/25 bupropion HCl 300 mg 24 hr tablet, 300 mg PO QAM 02/17/25 02/17/25 extended release (Wellbutrin XL) cholecalciferol (vitamin D3) 25 25 mcg PO DAILY 02/17/25 02/17/25 mcg (1,000 unit) capsule docusate sodium 100 mg capsule 100 mg PO DAILY 02/17/25 02/17/25 (Stool Softener) fluoxetine 20 mg capsule (Prozac) 40 mg PO DAILY 02/17/25 02/17/25 hydralazine 10 mg tablet 40 mg PO 02/17/25 02/17/25 metoprolol succinate 50 mg 100 mg PO DAILY 02/17/25 02/17/25 tablet,extended release 24 hr multivitamin with minerals 1 cap PO DAILY 02/17/25 02/17/25 Allergies Allergy/AdvReac Type Severity Reaction Status Date / Time No Known Allergies Allergy Verified 03/05/25 06:02 Review of Systems Review of Systems: Constitutional : No Weight loss, No Fever, No Chills, No Night Sweats, No Fatigue, No Malaise ENT/Mouth : No Hearing loss, No Ear Pain, No Nasal Congestion, No Sinus Pain, No Hoarseness, No sore throat, No Rhinorrhea, No Swallowing Difficulty Eyes: No Eye Pain, No Swelling, No Redness, No Foreign Body, No Discharge, No Vision Changes Cardiovascular : No Chest Pain, No SOB, No Dyspnea on Exertion, No Orthopnea, No Edema, No Palpitations Respiratory : No Cough, No Sputum, No Wheezing, No Smoke Exposure, No Dyspnea Gastrointestinal : No Nausea, No Vomiting, No Diarrhea, No Constipation, No abdominal Pain, No Hematochezia, No Melena Genitourinary : no irregular bleeding, No Dysuria, No Urinary Frequency, No Hematuria, No Urinary Incontinence, No Urgency, No Flank Pain, No Urinary Flow Changes, No Hesitancy Musculoskeletal : No joint pain, No Myalgias, No Joint Swelling Skin : Complaining of pain and swelling in the left buttocks adjacent to the anus Neuro : No Weakness, No Numbness, No Paresthesias, No Loss of Consciousness, No Dizziness, No Headache Psych : No Anxiety/Panic, No Depression, No SI/HI/AH/VH, No Social Issues, Heme/Lymph: No Bruising, No Bleeding,No Lymphadenopathy Endocrine : No Polyuria, No Polydipsia, No Temperature Intolerance PMFSH Past Medical History Medical History Factor V Leiden Ductal carcinoma in situ (DCIS) of right breast Morbid (severe) obesity due to excess calories Anxiety Depression GERD (gastroesophageal reflux disease) Hyperlipidemia Hypertension Morbid obesity Surgical History Hx of excision of dermoid cyst Hx of lumpectomy Family History Family History Mother Hypertension Father Crohn disease Diabetes Hypertension Hyperlipidemia Obesity Sister Celiac disease Maternal Grandmother Melanoma Social History Social History Alcohol intake: never Patient Tobacco Use Status: Former Tobacco user Smoked in Last 30 Days: No Use of substances other than those prescribed or required for medical reasons: Yes Substance Use Type: Marijuana Substance Use Frequency: Daily Last Used Substance: Days (ago) Advance Directives: No Advance Directives Information Provided: Yes Patient : No Current occupational status: employed 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 Oriented X3. No acute distress. Eyes: Pupils equal, round and reactive to light. ENT: Pharynx normal. Neck: Normal inspection. Neck supple. No lymph nodes noted. No crepitus CVS: Normal heart rate and rhythm. Pulses normal. Normal S1 and S2 Respiratory: No respiratory distress. Breath sounds normal. No Wheezing. No rales Abdomen: Soft and nontender. No rigidity. No distention. Skin: Skin warm and dry. Normal skin color. Normal skin turgor. In the left buttocks adjacent to the anus, there is a 10 cm x 10 cm erythematous patch. No palpable masses, no drainage. Extremities: No lower extremity edema. No Lacerations. No Rash Neuro: Oriented X 3. No motor deficit. No sensory deficit. Moving all extremities. No slurred speech. CN 2 through 12 grossly intact Psych: calm, cooperative, normal affect Vital Signs: Vital Signs: Last Vital Signs Temp 97.6 F 03/05/25 09:27 Pulse 83 03/05/25 09:27 Resp 20 03/05/25 09:27 BP 118/75 03/05/25 09:27 Pulse Ox 95 03/05/25 09:27 O2 Del Method Room Air 03/05/25 09:27 BMI result Body Mass Index 47.8 Course Course Course Narrative: In the left side of the buttocks there is a large 10 cm x 10 cm erythematous patch. Patient does not have hemorrhoids. This may be cellulitis versus a fistula versus perirectal abscess. CT scan of the pelvis has been ordered. Patient receiving IV morphine and Zofran At this time, 07:10, the patient is being treated Empirically with IV fluids based on ideal weight of 55 kg, patient is obese. Patient also getting vanc and Zosyn. CT scan has been done, but results are pending. At this time, 07:10, sign-out given to my colleague Dr. Couch Reevaluation(s) Reevaluation #1: DR. Couch's progress note: I assumed care for this patient at 07:[address] Arizmendi, 49-year-old female came in with severe left side anal pain, CT is consistent with perianal cellulitis and abscess, patient also meet criteria for SIRS, patient was given IV fluids, vancomycin by Dr. Ndiaye, will start on Zosyn. Patient is/PI and D of her left hand abscess please refer to procedure note. Improvement of lactic acid after fluids now it is 1.3. Case discussed with Dr Ramirez. Time: 10:51 Medications Administered Discontinued Medications Generic Name Dose Route Start Last Admin Trade Name Freq PRN Reason Stop Dose Admin Vancomycin HCl 2,000 mg in 500 mls @ 250 mls/hr 03/05/25 07:04 03/05/25 07:33 Vancomycin/Ns IV 03/05/25 09:03 250 mls/hr ONCE ONE Administration Sodium Chloride 2,000 mls @ 999 mls/hr 03/05/25 07:04 03/05/25 07:13 Ns IVCONT 03/05/25 09:04 999 mls/hr .Q2H1M ONE Administration Iohexol 100 ml 03/05/25 08:34 03/05/25 08:44 Iohexol 350 Mg/Ml 100 Ml Infus..Btl IV 03/05/25 08:35 100 ml ONCE ONE Administration Lidocaine HCl 5 ml 03/05/25 10:24 03/05/25 10:37 Lidocaine Hcl 1 % Mpf 5 Ml Vial SUBCUT 03/05/25 10:25 5 ml ONCE ONE Administration Morphine Sulfate 4 mg 03/05/25 06:33 03/05/25 07:06 Morphine Sulfate 4 Mg/Ml Cartridge IVPUSH 03/05/25 06:34 4 mg ONCE ONE Administration Protocol Ondansetron HCl 4 mg 03/05/25 06:33 03/05/25 07:06 Ondansetron Hcl 4 Mg/2 Ml Vial IVPUSH 03/05/25 06:34 4 mg ONCE ONE Administration Medical Decision Making Differential Diagnosis Differential Diagnoses: The differential diagnosis associated with the presentation includes (Perianal abscess, cellulitis, perirectal abscess, sepsis, electrolyte derangement, severe anemia.) Lab Data 03/05/25 06:35 03/05/25 06:35 Labs: Lab Results 03/05/25 03/05/25 Range/Units 06:35 09:36 WBC 17.7 H (4.8-10.8) X10*3/uL RBC 4.21 (4.20-5.50) X10*6/uL Hgb 12.1 (12.0-16.0) g/dl Hct 35.4 L (37.0-47.0) % MCV 84.1 (80.0-98.0) fL MCH 28.7 (27.0-33.0) pg MCHC 34.2 (31.0-35.0) g/dl RDW 13.5 (11.0-16.0) % Plt Count 308 (160-400) X10*3/uL MPV 10.0 (9.4-12.3) fL Immature Gran % (Auto) 0.8 H (0.0-0.4) % Neut % (Auto) 83.5 H (45-73) % Lymph % (Auto) 8.7 L (20-40) % [place] % (Auto) 5.6 (2-11) % Eos % (Auto) 1.2 (0-4) % Baso % (Auto) 0.2 (0-2) % Lymph # (Auto) 1.5 (1.2-4.9) X10*3/uL [place] # (Auto) 1.0 (0.1-1.2) X10*3/uL Eos # (Auto) 0.2 (0.0-0.4) X10*3/uL Baso # (Auto) 0.0 (0.0-0.2) X10*3/uL Abs Immat Gran (auto) 0.15 H (0.00-0.03) X10*3/uL Absolute Neuts (auto) 14.8 H (2.0-8.3) x10*3/uL Absolute Nucleated RBC 0.000 (0.0-0.012) X10*3/uL Nucleated RBC % (auto) 0.0 (0.0-0.2) /100WBC Sodium 136 (135-145) mmol/L Potassium 3.3 (3.3-5.1) mmol/L Chloride 101 (96-108) mmol/L Carbon Dioxide 21 L (22-29) mmol/L Anion Gap 17 (12-20) BUN 11 (9-16) mg/dL Creatinine 0.69 (0.5-1.4) mg/dL Estim Creat Clear Calc 137.3 Estimated GFR > 60 Random Glucose 272 H (60-115) mg/dL Lactic Acid 3.3 H* (0.5-2.0) mmol/L Lactic Acid F/U @ 2Hr 1.3 (0.5-2.0) mmol/L Calcium 9.5 (8.4-10.2) mg/dL Total Bilirubin 0.8 (0.0-1.0) mg/dL Direct Bilirubin 0.3 (0.0-0.5) mg/dL AST 25 (5-31) U/L ALT 24 (0-31) U/L Alkaline Phosphatase 97 (39-117) U/L Total Protein 7.1 (6.5-8.0) g/dL Albumin 4.0 (3.5-5.0) g/dL Beta HCG, Quant < 2 mIU/mL Procedures Abscess I/D Site: other (Perianal abscess) Side (if applicable): left Local Anesthetic: lidocaine 1% Amount of anesthesia used (mL): 5 Technique: incised with blade Amount of fluid expressed (mL): 15 Sent for culture/gram staining?: No Irrigation: No Discharge Plan Discharge Clinical Impression: Abscess, perianal, Sepsis Patient Disposition: Admitted As Inpatient
[2025-03-05 07:00] LABS: Hematocrit 35.4 % (37.0-47.0); Hemoglobin 12.1 g/dl (12.0-16.0); Imm Gran Abs Auto 0.15 X10*3/uL (0.00-0.03); Imm Gran Pct Auto 0.8 % (0.0-0.4); Lymphocytes Absolute Auto 1.5 X10*3/uL (1.2-4.9); Mean Corpuscular HGB Conc 34.2 g/dl (31.0-35.0); Mean Corpuscular Hemoglobin 28.7 pg (27.0-33.0); Mean Corpuscular Volume 84.1 fL (80.0-98.0); NRBC Abs Auto 0.000 X10*3/uL (0.0-0.012); NRBC Pct Auto 0.0 /100WBC (0.0-0.2); Red Blood Count 4.21 X10*6/uL (4.20-5.50)
[2025-03-05 07:01] LABS: Platelet Count 308 X10*3/uL (160-400); White Blood Count 17.7 X10*3/uL (4.8-10.8)
[2025-03-05 07:08] LABS: Alanine Aminotransferase 24 U/L (0-31); Albumin Level 4.0 g/dL (3.5-5.0); Alkaline Phosphatase 97 U/L (39-117); Anion Gap 17 (12-20); Aspartate Amino Transferase 25 U/L (5-31); Blood Urea Nitrogen 11 mg/dL (9-16); Calcium 9.5 mg/dL (8.4-10.2); Carbon Dioxide 21 mmol/L (22-29); Chloride 101 mmol/L (96-108); Creatinine Clr Calc Pharmacy 137.3; Estimated Glomerular Filt Rate > 60; Potassium 3.3 mmol/L (3.3-5.1); Sodium 136 mmol/L (135-145); Total Protein 7.1 g/dL (6.5-8.0)
--- OUTSIDE RECORDS SUMMARY | 2025-03-05 07:25 | XMS_ITS | Patient Health Record ---
Author Organization [facility] Address [address] [facility] [place] [address] Care Team Providers Care Tableau Lead Name Role Phone Bhanu Armendariz MD Primary Care Provider Unavailab Mia Shanks Unavailable [phone] Allergies No Known Allergies Reason For Referral [...] W/U Status Risk Notes Problem Tinea unguium (039629707) Tinea unguium (B35.1) Active confirmed Chronic,Rx management (4) Vital Signs Blood pressure diastolic 81 mm Hg 01/29/2025 Height 5ft5in in 01/29/2025 Blood pressure systolic 124 mm Hg 01/29/2025 Weight 300 lbs 01/29/2025 BMI 49.92 kg/m2 01/29/2025 Encounters Encounter Location Date [facility] [address] 06/02/2024 Mia Black Tinea unguium B35.1 ; Pain in right toe(s) M79.674 and Pain in left toe(s) M79.[address] [address] 01/29/2025 Mia Black Tinea unguium B35.1 ; Pain in right toe(s) M79.674 and Pain in left toe(s) M79.[address] [address] 10/30/2024 Mia Black [address] [address] 01/27/2025 Mia Black Assessments Encounter Date Diagnosis [...] Order Date *Liver Function Test (LFT) 03/06/2022 93127-Nffjmivv Plate 05/29/2022 [id number]-Wzgusyye Plate 06/04/2023 20397- Debride <25 sq cm 06/12/2022 Next Appt Details Provider Name:Mia Tian , 07/23/2025 08:00:00 AM, [address] [place], [address], Insurance Providers Payer Name Payer Address Payer Phone Subscriber Number Group Number Insured Name Patient Relationship to Insured Coverage Start Date Coverage End Date [facility] [address] [facility] [id number] Alexa Beauchamp Self - patient is the insured Medical (General) History Medical History History ICD Code Anxiety Cancer Depression Diverticulosis Headaches/Migraines High blood pressure Chicken pox Transfusions Surgical History Surgery Date(Month/Year) lumpectomy 06/2019
[2025-03-05] MEDS: vancomycin/NS 2,000 MG/500 ML PLAST..BAG 250 MG IV (07:33)
--- NOTE | 2025-03-05 08:28 | PC.NURSE ---
Pt out of room for CT scan
[2025-03-05] MEDS: iohexoL 350 MG/ML 100 ML INFUS..BTL IV (08:44)
[2025-03-05 08:47] LABS: Reflex Lactate? Lactic Acid Added
--- NOTE | 2025-03-05 09:35 | PC.NURSE ---
Addendum entered by Jaz Lux RN 03/05/25 09:35: Fluids paused for CT scan and bathroom. Original Note: Fluids infusing slowly d/t positional IV access. Repeat lactic being drawn at this time.
[2025-03-05 09:57] LABS: ~Lactic Acid-LAB USE ONLY 1.3 mmol/L (0.5-2.0)
[2025-03-05] MEDS: Lidocaine HCl 1 % MPF 5 ML VIAL SUBCUT (10:37)
--- NOTE | 2025-03-05 10:38 | PC.NURSE ---
Dr Couch to bedside for incision and drainage to perineal region. Mother at bedside
--- NOTE | 2025-03-05 13:08 | PHA.MEDREC ---
Pharmacy Consult ? Medication Reconciliation Pharmacy has completed the medication reconciliation. Spoke to patient to confirm medication list. Per patient, she takes bupropion SR 100 mg 3 tablets in the morning, vitamin D 5000 units at bedtime, docusate 200 mg at bedtime, fluoxetine 80 mg in the morning, hydralazine 20 mg bid, metoprolol ER 50 mg bid. She last received lupron injection on 02/17/25, next dose is due on 03/17/25. Last dose of medications was this morning 03/05/25.
--- NOTE | 2025-03-05 13:40 | PM.IMHP ---
History of Present Illness Date of Service: 03/05/25 Attending physician on admission: Drew Justin Chief Complaint: Anal pain Pt is a 49-year-old female with a PMH significant for?breast cancer on anastrozole and leuprolide s/p lumpectomy in 2019, HTN, and anxiety/depression who presents to the ED with?and I will pain for the past 5 days. Pt reports that over the weekend she noticed a ?marble-sized lump? on her left buttock. Over the next few days of progressively got more painful to the point where she could no longer sit down or lay down. Saw her PCP yesterday for evaluation who told her to come to the emergency room for further workup. Pain is nonradiating. Has had some nausea and vomiting. Bowel movements has been painful, but no diarrhea. No fever or chills. Denies polyuria or dysuria. In the ED pt was tachycardic up to 106 with vitals otherwise WNL. Labs were significant for leukocytosis 17.7, lactic acid 3.3 with repeat 1.3, otherwise grossly unremarkable. Stable H&H. No significant electrolyte abnormalities. Renal function and hepatic function WNL. CT?abdomen and pelvis found large perineal abscess/phlegmon of up to 6.8 cm long; other incidental findings include hepatomegaly and hepatic steatosis. Pt underwent I&D in the ED with copious amounts of purulent and foul-smelling discharge. Pt was treated in the ED with IVF, morphine, ondansetron, vancomycin and Zosyn. Pt is admitted to the hospital for treatment and further evaluation of perineal abscess meeting sepsis criteria. Review of Systems Review of Systems: Negative except for that which is stated in the HPI. [facility] Medical History Factor V Leiden Ductal carcinoma in situ (DCIS) of right breast Morbid (severe) obesity due to excess calories Anxiety Depression GERD (gastroesophageal reflux disease) Hyperlipidemia Hypertension Morbid obesity Family History Mother Hypertension Father Crohn disease Diabetes Hypertension Hyperlipidemia Obesity Sister Celiac disease Maternal Grandmother Melanoma Surgical History Hx of excision of dermoid cyst Hx of lumpectomy Social History Alcohol intake: never Patient Tobacco Use Status: Former Tobacco user Smoked in Last 30 Days: No Use of substances other than those prescribed or required for medical reasons: Yes Substance Use Type: Marijuana Substance Use Frequency: Daily Last Used Substance: Days (ago) Advance Directives: No Advance Directives Information Provided: Yes Patient : No Current occupational status: employed 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 Meds Allergies Allergy/AdvReac Type Severity Reaction Status Date / Time No Known Allergies Allergy Verified 03/05/25 06:02 Home Medications ?Medication ?Instructions ?Recorded ?Confirmed ?Last Taken ?Type anastrozole 1 mg tablet 1 mg PO DAILY 05/06/21 03/05/25 03/05/25 History leuprolide 7.5 mg intramuscular 7.5 mg IM Q4W 12/13/21 03/05/25 02/17/25 History syringe kit (Lupron Depot) atorvastatin 10 mg tablet (Lipitor) 10 mg PO DAILY 02/17/25 03/05/25 03/05/25 History docusate sodium 100 mg capsule 200 mg PO BEDTIME 02/17/25 03/05/25 03/04/25 History (Stool Softener) fluoxetine 20 mg capsule (Prozac) 80 mg PO DAILY 02/17/25 03/05/25 03/05/25 History hydralazine 10 mg tablet 20 mg PO BID 02/17/25 03/05/25 03/05/25 History metoprolol succinate 50 mg 50 mg PO DAILY 02/17/25 03/05/25 03/05/25 History tablet,extended release 24 hr multivitamin with minerals 1 cap PO BEDTIME 02/17/25 03/05/25 03/04/25 History bupropion HCl 100 mg tablet,12 hr 300 mg PO DAILY 03/05/25 03/05/25 03/05/25 History sustained-release cholecalciferol (vitamin D3) 125 125 mcg PO BEDTIME 03/05/25 03/05/25 03/04/25 History mcg (5,000 unit) tablet (Vitamin D3) Physical Exam Vital Signs and Narrative: Vital Signs: Last Vital Signs Temp 97.9 F 03/05/25 12:19 Pulse 81 03/05/25 12:19 Resp 18 03/05/25 12:19 BP 110/70 03/05/25 12:19 Pulse Ox 96 03/05/25 12:19 O2 Del Method Room Air 03/05/25 12:19 BMI result Body Mass Index 47.8 General: AOx3, no acute distress Resp: CTA bilaterally CVS: S1, S2, RRR GI: +BS, NT, no distention Skin: Warm, dry : Large area of erythema and induration in left buttock adjacent to anus; small 1cm central incision; no purulent discharge Neuro: Cranial nerves II-XII grossly intact bilaterally. Motor grossly intact bilaterally Extremities: No edema Psych: Appropriate affect Results Labs 03/05/25 06:35 03/05/25 06:35 Labs: Laboratory Results - last 24 hr 03/05/25 03/05/25 06:35 09:36 MCV 84.1 MCH 28.7 MCHC 34.2 RDW 13.5 Plt Count 308 MPV 10.0 Immature Gran % (Auto) 0.8 H Neut % (Auto) 83.5 H Lymph % (Auto) 8.7 L [place] % (Auto) 5.6 Eos % (Auto) 1.2 Baso % (Auto) 0.2 Lymph # (Auto) 1.5 [place] # (Auto) 1.0 Eos # (Auto) 0.2 Baso # (Auto) 0.0 Abs Immat Gran (auto) 0.15 H Absolute Neuts (auto) 14.8 H Absolute Nucleated RBC 0.000 Nucleated RBC % (auto) 0.0 Anion Gap 17 Estim Creat Clear Calc 137.3 Estimated GFR > 60 Random Glucose 272 H Lactic Acid 3.3 H* Lactic Acid F/U @ 2Hr 1.3 Calcium 9.5 Total Bilirubin 0.8 Direct Bilirubin 0.3 AST 25 ALT 24 Alkaline Phosphatase 97 Total Protein 7.1 Albumin 4.0 Beta HCG, Quant < 2 Imaging Radiologist's Impressions: Impressions Abdomen/Pelvis CT 03/05/25 08:36 IMPRESSION: 1. Left perineal abscess/phlegmon extending up to 6.8 cm long. Surrounding abnormal soft tissue wall and fat stranding extends towards the anus. No findings to suggest perirectal abscess. 2. Hepatomegaly. Hepatic steatosis. 3. Scattered sigmoid colonic diverticula. Electronically signed by: Yasmani Gaming MD 03/05/2025 09:53 AM EDT Assessment and Plan (1) Perineal abscess: Status: Acute Plan Pt is a 49-year-old female with a PMH significant for?breast cancer on anastrozole and leuprolide s/p lumpectomy in 2019, HTN, and anxiety/depression who presents to the ED with?and I will pain for the past 5 days. Pt is admitted to the hospital for treatment and further evaluation of perineal abscess meeting sepsis criteria. Perineal abscess with sepsis Large left peroneal abscess/phlegmon x6.8 cm long I&D in the ED with copious amounts of purulent and foul-smelling discharge Met sepsis criteria with tachycardia and leukocytosis; lactic acid 3.3 with repeat 1.3 after IVF Vanc and Zosyn, day 1 General surgery consult Follow blood culture Hx of breast cancer S/p lumpectomy in 2019 Continue anastrozole and leuprolide HTN Continue hydralazine and metoprolol HTN Continue statin Anxiety/depression Continue bupropion and fluoxetine Full Code Attending:?Dr. Justin DVT Prophylaxis: Pneumatic compression due to possible surgical procedure Pt will require a hospitalization of at least two nights for treatment of?peroneal abscess with sepsis that will require IV antibiotics as well as specialist consultation with General surgery. Quality Stroke Does the patient have a stroke diagnosis?: No VTE Prior VTE?: No VTE Risk Level:: Medical - moderate - high VTE Device Contraindication: N/A - Device Ordered VTE Drug Contraindication: Treatment Not Indicated
--- NOTE | 2025-03-05 15:22 | PHA.PROG ---
Admission Date/Time: March 05, 2025 11:01 Indication: Skin Weight in k.181 kg Adjusted body weight in Kg: Cantil body weight in Kg: Obesity Dosing Indication % IBW: Serum Creatinine - Last 168 Hours 03/05/25 06:35 Creatinine 0.69 Estimated CrCl and GFR - Last 168 Hours 03/05/25 06:35 Estim Creat Clear Calc 137.3 Estimated GFR > 60 Vancomycin Loading Dose: 2000mg x 1 Current Vancomycin Dosing Regimen: 1250mg Q12H Vancomycin Monitoring using AUC goal of 400 - 600 range with trough as surrogate marker: 518 mg/L Date and Time for next Vancomycin Level to be drawn: 03/06/25 @1800 Pharmacist Comments on Vancomycin Plan: Predicted trough of 14.6 mg/L Vancomycin dosing will take advantage of [employer] as a clinical decision support tool that uses Bayesian modeling to calculate individual patient's pharmacokinetic parameters and forecast the patient's drug concentration time course with the target goal AUC 24 range of 400 - 600 mg/L/hr.
--- NOTE | 2025-03-05 15:32 | PM.CNGS ---
History of Present Illness Consult details Consult date: 03/05/25 Narrative: [age] year old female referred for a perirectal abscess She has been having this pain, swelling and tenderness on the left perianal area near of the buttock for about 4 days. This has been worsening we especially with regards to the pain so eventually came to the ER today. She was noted to be tachycardic and had a mildly elevated lactate. She did have a CAT scan showing an abscess with near the gluteal cleft adjacent to the perianal area. An I&D was actually done by the ER staff and large amounts of pus had been drained Currently the patient does state that her pain is much improved. She is not a diabetic. Review of Systems Constitutional: Constitutional: Denies chills and Denies fatigue Cardiovascular: Cardiovascular: Denies chest pain Gastrointestinal: Gastrointestinal: Denies abdominal pain Genitourinary: Genitourinary: Denies hematuria and Denies difficulty voiding Endocrine: Endocrine: Denies fatigue PMFSH Past Medical History Medical History Factor V Leiden Ductal carcinoma in situ (DCIS) of right breast Morbid (severe) obesity due to excess calories Anxiety Depression GERD (gastroesophageal reflux disease) Hyperlipidemia Hypertension Morbid obesity Family History Family History Mother Hypertension Father Crohn disease Diabetes Hypertension Hyperlipidemia Obesity Sister Celiac disease Maternal Grandmother Melanoma Surgical History Surgical History Hx of excision of dermoid cyst Hx of lumpectomy Social History Social History Household Members: None Housing: House Do you presently have visiting nurse or other home services: No Alcohol intake: never Patient Tobacco Use Status: Former Tobacco user Substance Use Type: Marijuana service: No Current occupational status: employed 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 Meds Allergies Allergy/AdvReac Type Severity Reaction Status Date / Time No Known Allergies Allergy Verified 03/05/25 06:02 Active Medications: Current Medications Acetaminophen (Acetaminophen 325 Mg Tablet) 650 mg PO Q6H PRN PRN Reason: Pain, Mild 1-3,fever,headache Anastrozole (Anastrozole 1 Mg Tablet) 1 mg PO DAILY EPIFANIO Atorvastatin Calcium (Atorvastatin Calcium 10 Mg Tablet) 10 mg PO DAILY EPIFANIO Calcium Carbonate (Calcium Carbonate 750 Mg Tab.Chew) 750 mg PO Q4H PRN PRN Reason: Heartburn Docusate Sodium (Docusate Sodium 100 Mg Capsule) 200 mg PO BEDTIME EPIFANIO Fluoxetine HCl (Fluoxetine Hcl 20 Mg Capsule) 80 mg PO DAILY [facility] Hydralazine HCl (Hydralazine Hcl 10 Mg Tablet) 20 mg PO BID EPIFANIO; Protocol Piperacillin Sod/Tazobactam (Sod 3.375 gm/ Sodium Chloride) 50 mls @ 100 mls/hr IV Q6H [facility] Vancomycin HCl 1,250 mg/ (Sodium Chloride) 250 mls @ 166.667 mls/hr IV Q12H [facility] Magnesium Hydroxide (Milk Of Magnesia 30 Ml Oral.Susp) 30 ml PO DAILY PRN PRN Reason: Constipation Melatonin (Melatonin 3 Mg Tablet) 6 mg PO BEDTIME PRN PRN Reason: Insomnia Metoprolol Succinate (Metoprolol Succinate Er 50 Mg Tab.Er.24h) 50 mg PO DAILY EPIFANIO; Protocol Multivitamins/Vitamin C (Multivitamin Tablet) 1 tab PO BEDTIME [facility] Non-Formulary Medication (Bupropion Hcl) 300 mg PO DAILY [facility] Non-Formulary Medication (Leuprolide [Lupron Depot]) 7.5 mg IM Q4W [facility] Pharmacy Consult (Consult Rx Vancomycin Dosing) 1 each MISCELLANE DAILY PRN PRN Reason: Consult order Sodium Chloride (0.9 % Sodium Chloride Flush 3 Ml Syringe) 3 ml IVFLUSH QSHIFT [facility] Vitamin D (Cholecalciferol (Vitamin D3) 25 Mcg Tablet) 125 mcg PO BEDTIME [facility] Home Medications ?Medication ?Instructions ?Recorded ?Confirmed ?Last Taken ?Type anastrozole 1 mg tablet 1 mg PO DAILY 05/06/21 03/05/25 03/05/25 History leuprolide 7.5 mg intramuscular 7.5 mg IM Q4W 12/13/21 03/05/25 02/17/25 History syringe kit (Lupron Depot) atorvastatin 10 mg tablet (Lipitor) 10 mg PO DAILY 02/17/25 03/05/25 03/05/25 History docusate sodium 100 mg capsule 200 mg PO BEDTIME 02/17/25 03/05/25 03/04/25 History (Stool Softener) fluoxetine 20 mg capsule (Prozac) 80 mg PO DAILY 02/17/25 03/05/25 03/05/25 History hydralazine 10 mg tablet 20 mg PO BID 02/17/25 03/05/25 03/05/25 History metoprolol succinate 50 mg 50 mg PO DAILY 02/17/25 03/05/25 03/05/25 History tablet,extended release 24 hr multivitamin with minerals 1 cap PO BEDTIME 02/17/25 03/05/25 03/04/25 History bupropion HCl 100 mg tablet,12 hr 300 mg PO DAILY 03/05/25 03/05/25 03/05/25 History sustained-release cholecalciferol (vitamin D3) 125 125 mcg PO BEDTIME 03/05/25 03/05/25 03/04/25 History mcg (5,000 unit) tablet (Vitamin D3) Physical Exam Vital Signs: Vital Signs: Last Vital Signs Temp 97.9 F 03/05/25 12:19 Pulse 81 03/05/25 12:19 Resp 18 03/05/25 12:19 BP 110/70 03/05/25 12:19 Pulse Ox 96 03/05/25 12:19 O2 Del Method Room Air 03/05/25 12:19 BMI result Body Mass Index 47.8 Const: General: comfortable and no acute distress Nutritional Appearance: obese Resp: Effort & Inspection: normal respiratory effort Cardio: Rate: regular rate GI: Other: Rectal exam shows an I&D site on the left perianal area near the neck, with no obvious residual induration or fluctuance, still a little tender Palpation (GI): Soft to palpation and not firm Results Labs 03/06/25 05:37 03/06/25 05:37 Labs: Abnormal lab results 03/05/25 Range/Units 06:35 WBC 17.7 H (4.8-10.8) X10*3/uL Hct 35.4 L (37.0-47.0) % Immature Gran % (Auto) 0.8 H (0.0-0.4) % Neut % (Auto) 83.5 H (45-73) % Lymph % (Auto) 8.7 L (20-40) % Abs Immat Gran (auto) 0.15 H (0.00-0.03) X10*3/uL Absolute Neuts (auto) 14.8 H (2.0-8.3) x10*3/uL Carbon Dioxide 21 L (22-29) mmol/L Random Glucose 272 H (60-115) mg/dL Lactic Acid 3.3 H* (0.5-2.0) mmol/L Short CBC 03/05/25 Range/Units 06:35 WBC 17.7 H (4.8-10.8) X10*3/uL Hgb 12.1 (12.0-16.0) g/dl Hct 35.4 L (37.0-47.0) % Plt Count 308 (160-400) X10*3/uL BMP 03/05/25 06:35 Sodium 136 Potassium 3.3 Chloride 101 Carbon Dioxide 21 L BUN 11 Creatinine 0.69 Calcium 9.5 Liver Function 03/05/25 Range/Units 06:35 Total Bilirubin 0.8 (0.0-1.0) mg/dL Direct Bilirubin 0.3 (0.0-0.5) mg/dL AST 25 (5-31) U/L ALT 24 (0-31) U/L Alkaline Phosphatase 97 (39-117) U/L Albumin 4.0 (3.5-5.0) g/dL All other labs normal. Imaging Abdomen CT scan report/results: report reviewed and image reviewed CT scan - pelvis: report reviewed and image reviewed Additional studies: PERINEUM: There is an approximately 3.6 x 3.4 cm irregular hypodense area in the left perineum (3:103), surrounded by thick wall and fatty stranding of the local soft tissues. This left perineal abscess/phlegmon extends for approximately 6.8 cm in longest dimension on the sagittal plane (8:79). Note that the abnormal soft tissue surrounding this abscess/phlegmon extends towards the anus, without clear flat plane with the anal margins. Assessment and Plan (1) Abscess, perianal: Status: Acute She has this large abscess in the left perianal area as described above. I have reviewed her CAT scan and this measures up to 6.8 cm An I&D he had been done under local anesthesia by the ER staff. The site appears to be adequately drained at this time. She did has some tenderness but this is much improved. She looks well overall. I would follow up on cultures to adjust antibiotic treatment . She can be given pain medications with narcotics for comfort. She does not appear septic clinically. I will follow along while she is in the hospital. I have discussed the above with the hospitalist service. Procedures Date of Service Date of Service: 03/06/25
[2025-03-05] MEDS: 0.9 % Sodium Chloride Flush 3 ML SYRINGE IVFLUSH (17:39)
[2025-03-06] MEDS: 0.9 % Sodium Chloride Flush 3 ML SYRINGE IVFLUSH ×4 (00:21→20:11)
[2025-03-06 00:28] VITALS: BMI 48.7
[2025-03-06 00:41] VITALS: BP 144/88; PULSE 68; RESP 20; TEMP 36.5; O2SAT 97
[2025-03-06 03:25] VITALS: BP 129/60; PULSE 68; RESP 18; TEMP 36.3; O2SAT 93
[2025-03-06 07:04] LABS: Hematocrit 34.7 % (37.0-47.0); Hemoglobin 11.3 g/dl (12.0-16.0); Mean Corpuscular HGB Conc 32.6 g/dl (31.0-35.0); Mean Corpuscular Hemoglobin 28.2 pg (27.0-33.0); Mean Corpuscular Volume 86.5 fL (80.0-98.0); NRBC Abs Auto 0.000 X10*3/uL (0.0-0.012); NRBC Pct Auto 0.0 /100WBC (0.0-0.2); Platelet Count 265 X10*3/uL (160-400); Red Blood Count 4.01 X10*6/uL (4.20-5.50); White Blood Count 11.8 X10*3/uL (4.8-10.8)
[2025-03-06 07:33] LABS: Anion Gap 16 (12-20); Blood Urea Nitrogen 10 mg/dL (9-16); Calcium 9.4 mg/dL (8.4-10.2); Carbon Dioxide 27 mmol/L (22-29); Chloride 105 mmol/L (96-108); Creatinine Clr Calc Pharmacy 133.1; Estimated Glomerular Filt Rate > 60; Potassium 3.7 mmol/L (3.3-5.1); Sodium 144 mmol/L (135-145)
[2025-03-06] MEDS: Metoprolol Succinate ER 50 MG TAB.ER.24H PO (07:55)
[2025-03-06] MEDS: buPROPion HCl XL 300 MG TAB.ER.24H PO (07:55)
[2025-03-06 08:00] VITALS: BP 137/71; PULSE 73; RESP 14; TEMP 36.1; O2SAT 95
--- NOTE | 2025-03-06 08:29 | PM.PNGS ---
Subjective Subjective Date of Service: 03/06/25 <Susy Saez PA-C - Last Filed: 03/06/25 08:34> 03/06/25 <El Ramirez MD - Last Filed: 03/06/25 14:17> Interval history: Reports pain is significantly improved this morning, feels better. Able to lie on back side now. <Susy Saez PA-C - Last Filed: 03/06/25 08:34> Physical Exam Vital Signs: Vital Signs: Last Vital Signs Temp 96.9 F 03/06/25 08:00 Pulse 73 03/06/25 08:00 Resp 14 03/06/25 08:00 BP 137/71 03/06/25 08:00 Pulse Ox 95 03/06/25 08:00 O2 Del Method Room Air 03/06/25 08:00 BMI result Body Mass Index 48.7 <Susy Saez PA-C - Last Filed: 03/06/25 08:34> Const: General: comfortable, no acute distress and alert <Susy Saez PA-C - Last Filed: 03/06/25 08:34> Orientation/consciousness: patient oriented x3 <Susy Saez PA-C - Last Filed: 03/06/25 08:34> Skin: Other: left perianal I&D site- mild remaining erythema and induration surrounding the I&D site, no remaining fluctuance, no drainage noted, area remains tender but improved <Susy Saez PA-C - Last Filed: 03/06/25 08:34> Neuro: General: patient oriented x3 and moves all extremities <Susy Saez PA-C - Last Filed: 03/06/25 08:34> Objective Data Active Medications Acetaminophen (Acetaminophen 325 Mg Tablet) 650 mg PO Q6H PRN PRN Reason: Pain, Mild 1-3,fever,headache Last Admin: 03/05/25 20:49 Dose: 650 mg Documented By: TRENT Anastrozole (Anastrozole 1 Mg Tablet) 1 mg PO DAILY [facility] Last Admin: 03/06/25 07:55 Dose: 1 mg Documented By: EUN Atorvastatin Calcium (Atorvastatin Calcium 10 Mg Tablet) 10 mg PO DAILY [facility] Last Admin: 03/06/25 07:55 Dose: 10 mg Documented By: EUN Bupropion HCl (Bupropion Hcl Xl 300 Mg Tab.Er.24h) 300 mg PO DAILY [facility] Last Admin: 03/06/25 07:55 Dose: 300 mg Documented By: EUN Calcium Carbonate (Calcium Carbonate 750 Mg Tab.Chew) 750 mg PO Q4H PRN PRN Reason: Heartburn Docusate Sodium (Docusate Sodium 100 Mg Capsule) 200 mg PO BEDTIME [facility] Last Admin: 03/05/25 20:49 Dose: 200 mg Documented By: TRENT Fluoxetine HCl (Fluoxetine Hcl 20 Mg Capsule) 80 mg PO DAILY [facility] Last Admin: 03/06/25 07:55 Dose: 80 mg Documented By: EUN Hydralazine HCl (Hydralazine Hcl 10 Mg Tablet) 20 mg PO BID [facility]; Protocol Last Admin: 03/06/25 07:55 Dose: 20 mg Documented By: EUN Piperacillin Sod/Tazobactam (Sod 3.375 gm/ Sodium Chloride) 50 mls @ 100 mls/hr IV Q6H [facility] Last Infusion: 03/06/25 06:14 Dose: Infused Documented By: THANG Vancomycin HCl 1,250 mg/ (Sodium Chloride) 250 mls @ 166.667 mls/hr IV Q12H [facility] Last Admin: 03/06/25 07:10 Dose: 166.67 mls/hr Documented By: EUN Magnesium Hydroxide (Milk Of Magnesia 30 Ml Oral.Susp) 30 ml PO DAILY PRN PRN Reason: Constipation Melatonin (Melatonin 3 Mg Tablet) 6 mg PO BEDTIME PRN PRN Reason: Insomnia Metoprolol Succinate (Metoprolol Succinate Er 50 Mg Tab.Er.24h) 50 mg PO DAILY [facility]; Protocol Last Admin: 03/06/25 07:55 Dose: 50 mg Documented By: EUN Multivitamins/Vitamin C (Multivitamin Tablet) 1 tab PO BEDTIME [facility] Last Admin: 03/05/25 20:49 Dose: 1 tab Documented By: TRENT Non-Formulary Medication (Leuprolide [Lupron Depot]) 7.5 mg IM Q28D [facility] Pharmacy Consult (Consult Rx Vancomycin Dosing) 1 each MISCELLANE DAILY PRN PRN Reason: Consult order Sodium Chloride (0.9 % Sodium Chloride Flush 3 Ml Syringe) 3 ml IVFLUSH QSHIFT [facility] Last Admin: 03/06/25 07:09 Dose: 3 ml Documented By: EUN Vitamin D (Cholecalciferol (Vitamin D3) 25 Mcg Tablet) 125 mcg PO BEDTIME [facility] Last Admin: 03/05/25 20:49 Dose: 125 mcg Documented By: TRENT <Susy Saez PA-C - Last Filed: 03/06/25 08:34> Labs CBC & Chem 7: 03/06/25 05:37 03/06/25 05:37 <Susy Saez PA-C - Last Filed: 03/06/25 08:34> Labs: Laboratory Results - last 24 hr 03/05/25 03/06/25 09:36 05:37 MCV 86.5 MCH 28.2 MCHC 32.6 RDW 13.7 Plt Count 265 MPV 9.8 Absolute Nucleated RBC 0.000 Nucleated RBC % (auto) 0.0 Anion Gap 16 Estim Creat Clear Calc 133.1 Estimated GFR > 60 Random Glucose 110 Lactic Acid F/U @ 2Hr 1.3 Calcium 9.4 <Susy Saez PA-C - Last Filed: 03/06/25 08:34> Procedures Date of Service Date of Service: 03/06/25 <Susy Saez PA-C - Last Filed: 03/06/25 08:34> 03/06/25 <El Ramirez MD - Last Filed: 03/06/25 14:17> Progress Note: A&P Assessment and plan (1) Perineal abscess: Status: Acute <Susy Saez PA-C - Last Filed: 03/06/25 08:34> Assessment and Plan: Feels much better No residual fluctuance on I&D site Mild residual induration Area appears adequately drained No fever Much improved Oral antibiotics on discharge She feels ready to go home today Rest of care as per the hospitalist service Seen and examined independently <El Ramirez MD - Last Filed: 03/06/25 14:17> Assessment and Plan: Left perianal abscess and cellulitis- s/p I&D at bedside in the ED yesterday. No remaining fluctuance, surrounding cellulitis continues to improve. No culture sent. Cont IV abx for now, sitz baths to area. Likely home tomorrow. Patient comfortable with plan. Can f/u in office in 1 week for wound check upon discharge. <Susy Saez PA-C - Last Filed: 03/06/25 08:34> Time Spent With Patient Time: Total time managing care of this patient today ____ minutes. <Susy Saez PA-C - Last Filed: 03/06/25 08:34> Quality Stroke Does the patient have a stroke diagnosis?: No <Susy Saez PA-C - Last Filed: 03/06/25 08:34> VTE Prior VTE?: No <Susy Saez PA-C - Last Filed: 03/06/25 08:34> VTE Risk Level:: Medical - moderate - high <DANYA Means Last Filed: 03/06/25 08:34> VTE Device Contraindication: N/A - Device Ordered <DANYA Means Last Filed: 03/06/25 08:34> VTE Drug Contraindication: Treatment Not Indicated <DANYA Means Last Filed: 03/06/25 08:34>
--- NOTE | 2025-03-06 09:37 | MHC.CM.PN ---
CM MET WITH PT AT BEDSIDE. PT LIVES ALONE, IS FUNCTIONALLY INDEPENDENT AND IS EMPLOYED F/T. NO SERVICES OR DME. PT DECLINES COMPLETING A HCP (HAS AN APPOINTMENT IN A MONTH TO DO HCP/WILL AT SAME TIME) PCP DR. SOTELO DP: HOME, NO SERVICES IS ANTICIPATED. PT HAS CAR IN LOT AND WOULD LIKE TO TRANSPORT SELF. CM WILL CONTINUE TO FOLLOW FOR ANY CHANGE TO DC PLAN/NEEDS.
--- NOTE | 2025-03-06 13:58 | P.PNIM_ITS ---
Subjective Subjective Date of Service: 03/06/25 Interval History: Appears uncomfortable this a.m.. No acute distress Review of Systems Denies chest pain Denies shortness of breath Denies nausea vomiting diarrhea Denies fever chills Physical Exam 2 Vital Signs: Vital Signs: Last Vital Signs Temp 96.9 F 03/06/25 08:00 Pulse 73 03/06/25 08:00 Resp 14 03/06/25 08:00 BP 137/71 03/06/25 08:00 Pulse Ox 95 03/06/25 08:00 O2 Del Method Room Air 03/06/25 08:00 BMI result Body Mass Index 48.7 Const: Other: Awake alert oriented x3 in no acute distress Resp: Other: Clear to auscultation bilaterally no rales rhonchi or wheezes Cardio: Other: No S4; positive S1-S2; no S3 murmurs rubs or gallops GI: Other: Soft nontender nondistended normoactive bowel sounds Extrem: Other: No edema Objective Data Active Medications Acetaminophen (Acetaminophen 325 Mg Tablet) 650 mg PO Q6H PRN PRN Reason: Pain, Mild 1-3,fever,headache Last Admin: 03/05/25 20:49 Dose: 650 mg Documented By: TRENT Anastrozole (Anastrozole 1 Mg Tablet) 1 mg PO DAILY [facility] Last Admin: 03/06/25 07:55 Dose: 1 mg Documented By: EUN Atorvastatin Calcium (Atorvastatin Calcium 10 Mg Tablet) 10 mg PO DAILY [facility] Last Admin: 03/06/25 07:55 Dose: 10 mg Documented By: EUN Bupropion HCl (Bupropion Hcl Xl 300 Mg Tab.Er.24h) 300 mg PO DAILY [facility] Last Admin: 03/06/25 07:55 Dose: 300 mg Documented By: EUN Calcium Carbonate (Calcium Carbonate 750 Mg Tab.Chew) 750 mg PO Q4H PRN PRN Reason: Heartburn Docusate Sodium (Docusate Sodium 100 Mg Capsule) 200 mg PO BEDTIME [facility] Last Admin: 03/05/25 20:49 Dose: 200 mg Documented By: TRENT Fluoxetine HCl (Fluoxetine Hcl 20 Mg Capsule) 80 mg PO DAILY [facility] Last Admin: 03/06/25 07:55 Dose: 80 mg Documented By: EUN Hydralazine HCl (Hydralazine Hcl 10 Mg Tablet) 20 mg PO BID [facility]; Protocol Last Admin: 03/06/25 07:55 Dose: 20 mg Documented By: EUN Piperacillin Sod/Tazobactam (Sod 3.375 gm/ Sodium Chloride) 50 mls @ 100 mls/hr IV Q6H [facility] Last Infusion: 03/06/25 12:39 Dose: Infused Documented By: EUN Vancomycin HCl 1,250 mg/ (Sodium Chloride) 250 mls @ 166.667 mls/hr IV Q12H [facility] Last Infusion: 03/06/25 08:44 Dose: Infused Documented By: EUN Magnesium Hydroxide (Milk Of Magnesia 30 Ml Oral.Susp) 30 ml PO DAILY PRN PRN Reason: Constipation Melatonin (Melatonin 3 Mg Tablet) 6 mg PO BEDTIME PRN PRN Reason: Insomnia Metoprolol Succinate (Metoprolol Succinate Er 50 Mg Tab.Er.24h) 50 mg PO DAILY [facility]; Protocol Last Admin: 03/06/25 07:55 Dose: 50 mg Documented By: EUN Multivitamins/Vitamin C (Multivitamin Tablet) 1 tab PO BEDTIME [facility] Last Admin: 03/05/25 20:49 Dose: 1 tab Documented By: TRENT Non-Formulary Medication (Leuprolide [Lupron Depot]) 7.5 mg IM Q28D [facility] Oxycodone HCl (Oxycodone Hcl Immed Release 5 Mg Tablet) 5 mg PO Q4H PRN PRN Reason: Pain, Moderate(Pain Scale 4-6) Pharmacy Consult (Consult Rx Vancomycin Dosing) 1 each MISCELLANE DAILY PRN PRN Reason: Consult order Sodium Chloride (0.9 % Sodium Chloride Flush 3 Ml Syringe) 3 ml IVFLUSH QSHIFT [facility] Last Admin: 03/06/25 11:44 Dose: 3 ml Documented By: EUN Vitamin D (Cholecalciferol (Vitamin D3) 25 Mcg Tablet) 125 mcg PO BEDTIME [facility] Last Admin: 03/05/25 20:49 Dose: 125 mcg Documented By: TRENT Labs 03/06/25 05:37 03/06/25 05:37 Labs: Laboratory Results - last 24 hr 03/06/25 05:37 MCV 86.5 MCH 28.2 MCHC 32.6 RDW 13.7 Plt Count 265 MPV 9.8 Absolute Nucleated RBC 0.000 Nucleated RBC % (auto) 0.0 Anion Gap 16 Estim Creat Clear Calc 133.1 Estimated GFR > 60 Random Glucose 110 Calcium 9.4 Microbiology Microbiology Results: Microbiology 03/05/25 06:51 Blood Culture - Preliminary Blood - Venous No growth after 24 hours. 03/05/25 06:35 Blood Culture - Preliminary Blood - Venous No growth after 24 hours. Assessment and Plan (1) Perineal abscess: Status: Acute (2) Hypertension: Status: Acute Plan Pt is a 49-year-old female with a PMH significant for?breast cancer on anastrozole and leuprolide s/p lumpectomy in 2019, HTN, and anxiety/depression who presents to the ED with?and I will pain for the past 5 days. Pt is admitted to the hospital for treatment and further evaluation of perineal abscess meeting sepsis criteria. 1.Perineal abscess with sepsis (resolved) -I&D in the ED with copious amounts of purulent and foul-smelling discharge -Vanc/Zosyn (2) -General surgery consult appreciated -await cultures 2.HTN -acceptable control on current therapies -adjust as indicated 3.Anxiety/depression -stable and well compensated Full Code Boots Requires ongoing hospitalization for IV antibiotics pending culture of drain perineal abscess Quality Stroke Does the patient have a stroke diagnosis?: No VTE Prior VTE?: No VTE Risk Level:: Medical - moderate - high VTE Device Contraindication: N/A - Device Ordered VTE Drug Contraindication: Treatment Not Indicated
[2025-03-06 15:23] VITALS: BP 130/81; PULSE 61; RESP 18; TEMP 36.3; O2SAT 94
--- NOTE | 2025-03-06 18:21 | PC.NURSE ---
ABX paused, IV Infiltrated, attempting to place another line.
[2025-03-06 19:07] VITALS: BP 120/63; PULSE 71; RESP 18; TEMP 36.6; O2SAT 95
[2025-03-07 03:34] VITALS: BP 141/89; PULSE 58; RESP 12; TEMP 36; O2SAT 94
[2025-03-07 06:36] LABS: MANUAL DIFF FLAG NO
[2025-03-07 06:39] LABS: Hematocrit 34.3 % (37.0-47.0); Hemoglobin 11.4 g/dl (12.0-16.0); Imm Gran Abs Auto 0.13 X10*3/uL (0.00-0.03); Imm Gran Pct Auto 1.3 % (0.0-0.4); Lymphocytes Absolute Auto 2.0 X10*3/uL (1.2-4.9); Mean Corpuscular HGB Conc 33.2 g/dl (31.0-35.0); Mean Corpuscular Hemoglobin 28.2 pg (27.0-33.0); Mean Corpuscular Volume 84.9 fL (80.0-98.0); NRBC Abs Auto 0.000 X10*3/uL (0.0-0.012); NRBC Pct Auto 0.0 /100WBC (0.0-0.2); Platelet Count 312 X10*3/uL (160-400); Red Blood Count 4.04 X10*6/uL (4.20-5.50); White Blood Count 9.7 X10*3/uL (4.8-10.8)
[2025-03-07 07:06] LABS: Creatinine Clr Calc Pharmacy 135.0; Estimated Glomerular Filt Rate > 60
[2025-03-07 07:55] VITALS: BP 130/61; PULSE 61; RESP 18; TEMP 36; O2SAT 97
[2025-03-07] MEDS: 0.9 % Sodium Chloride Flush 3 ML SYRINGE IVFLUSH (08:24)
[2025-03-07] MEDS: Metoprolol Succinate ER 50 MG TAB.ER.24H PO (08:26)
[2025-03-07] MEDS: buPROPion HCl XL 300 MG TAB.ER.24H PO (08:26)
--- NOTE | 2025-03-07 10:20 | PM.DS ---
DS: Providers Provider Date of Service: 03/07/25 Date of admission: 03/05/25 11:01 Date of discharge: 03/07/25 Primary care physician: Bhanu Armendariz MD Consults: 03/05/25 10:57 Consult to General Surgery Stat Consulting Provider: [facility] [place] General Surgeons Reason for consultation: Perianal abscess Has provider been notified: Yes 03/05/25 14:30 Consult to General Surgery Routine Consulting Provider: [facility] [place] General Surgeons Reason for consultation: Perineal abscess Has provider been notified: Yes 03/06/25 00:40 Consult to Wound Care Routine Reason for consultation: abscess to left buttocks. DS: Diagnosis Discharge Diagnosis (1) Abscess, perianal: Status: Acute DS: Summary Hospital Course Hospital Course: 49-year-old female with a PMH significant for?breast cancer on anastrozole and leuprolide s/p lumpectomy in 2019, HTN, and anxiety/depression who presents to the ED with?and I will pain for the past 5 days. Pt reports that over the weekend she noticed a ?marble-sized lump? on her left buttock. Over the next few days of progressively got more painful to the point where she could no longer sit down or lay down. Saw her PCP yesterday for evaluation who told her to come to the emergency room for further workup. Pain is nonradiating. Has had some nausea and vomiting. Bowel movements has been painful, but no diarrhea. No fever or chills. Denies polyuria or dysuria. In the ED pt was tachycardic up to 106 with vitals otherwise WNL. Labs were significant for leukocytosis 17.7, lactic acid 3.3 with repeat 1.3, otherwise grossly unremarkable. Stable H&H. No significant electrolyte abnormalities. Renal function and hepatic function WNL. CT?abdomen and pelvis found large perineal abscess/phlegmon of up to 6.8 cm long; other incidental findings include hepatomegaly and hepatic steatosis. Pt underwent I&D in the ED with copious amounts of purulent and foul-smelling discharge. Pt was treated in the ED with IVF, morphine, ondansetron, vancomycin and Zosyn. Pt is admitted to the hospital for treatment and further evaluation of perineal abscess meeting sepsis criteria. Hospital course Patient admitted to general medical floor and continued on vancomycin/Zosyn. Over the next 48 hours her white count returned to normal and her pain was well control. At this point in time surgery has signed off she will be sent home on a course of Augmentin and will follow up with surgery as an outpatient Time Attestation Discharge Coordination Time (in mins): 35 Quality: Safe Use of Opioids Does Pt have an Active Cancer Diagnosis on the Problem List?: No Quality: Stroke Does the patient have a stroke diagnosis?: No Physical Exam Vital Signs: Vital Signs: Last Vital Signs Temp 96.8 F 03/07/25 07:55 Pulse 61 03/07/25 07:55 Resp 18 03/07/25 07:55 BP 130/61 03/07/25 07:55 Pulse Ox 97 03/07/25 07:55 O2 Del Method Room Air 03/07/25 07:55 BMI result Body Mass Index 48.7 Const: Other: Awake alert oriented x3 in no acute distress Resp: Other: Clear to auscultation bilaterally no rales rhonchi or wheezes Cardio: Other: No S4; positive S1-S2; no S3 murmurs rubs or gallops GI: Other: Soft nontender nondistended normoactive bowel sounds Extrem: Other: No edema DS: Data Data Completed and Pending Labs on day of discharge: Laboratory Results - last 24 hr 03/06/25 03/07/25 18:21 05:48 WBC 9.7 RBC 4.04 L Hgb 11.4 L Hct 34.3 L MCV 84.9 MCH 28.2 MCHC 33.2 RDW 13.4 Plt Count 312 MPV 9.6 Immature Gran % (Auto) 1.3 H Neut % (Auto) 66.0 Lymph % (Auto) 21.0 [place] % (Auto) 7.2 Eos % (Auto) 4.2 H Baso % (Auto) 0.3 Lymph # (Auto) 2.0 [place] # (Auto) 0.7 Eos # (Auto) 0.4 Baso # (Auto) 0.0 Abs Immat Gran (auto) 0.13 H Absolute Neuts (auto) 6.4 Absolute Nucleated RBC 0.000 Nucleated RBC % (auto) 0.0 Creatinine 0.71 Estim Creat Clear Calc 135.0 Estimated GFR > 60 Vancomycin Trough 9.5 L Preliminary micro results at discharge 03/05/25 06:51 Blood Culture - Preliminary Blood - Venous No growth after 48 hours. 03/05/25 06:35 Blood Culture - Preliminary Blood - Venous No growth after 48 hours. Discharge Plan Discharge Anticipated Discharge Date/Time: 03/07/25 10:15 Patient Disposition: Home, Self-Care Discharge Diagnosis: Perianal abscess Referrals: Bhanu Armendariz MD [Primary Care Provider, Internal Medicine] - 1 Week Discharge Medications: New oxycodone 5 mg Tablet 5 mg PO Q4H PRN (Reason: Pain, Moderate(Pain Scale 4-6)) Qty: 20 0RF Rx Instructions: Partial Fill upon patient request. amoxicillin-pot clavulanate 875-125 mg tablet 1 tab PO BID Qty: 14 0RF Continued bupropion HCl 100 mg tablet sustained-release 12 hr 300 mg PO DAILY cholecalciferol (vitamin D3) [Vitamin D3] 125 mcg (5,000 unit) Tablet 125 mcg PO BEDTIME anastrozole 1 mg tablet 1 mg PO DAILY hydralazine 10 mg tablet 20 mg PO BID Lupron Depot 7.5 mg syringe kit 7.5 mg IM Q4W metoprolol succinate 50 mg tablet extended release 24 hr 50 mg PO DAILY atorvastatin [Lipitor] 10 mg tablet 10 mg PO DAILY docusate sodium [Stool Softener] 100 mg capsule 200 mg PO BEDTIME fluoxetine [Prozac] 20 mg capsule 80 mg PO DAILY multivitamin with minerals Capsule 1 cap PO BEDTIME Discharge Orders: Discharge Order (Routine); Ordered 03/07/25 Ordered By: Drew Justin Diet: Advance to usual diet Activity on Discharge: As tolerated Stand Alone Forms: Patient Portal Discharge page Print Language: Italian Care Plan Goals: Augmentin 875 twice a day for 1 week has been ordered. Complete this medicine. Oxycodone 5 mg 20. Can be taken every 4 hours as needed for pain Health Concerns: Resume all other meds as taken prior to hospitalization Plan of Treatment: Dr. Ramirez office will follow up and call you with an appointment Assessment: See discharge summary
--- NOTE | 2025-03-07 10:31 | MHC.CM.PN ---
PT TO DC HOME TODAY VIA SELF-TRANSPORT
[2025-03-07 10:48] VITALS: BP 134/87; PULSE 75; RESP 14; TEMP 36.4; O2SAT 97
== END 2025-03-07 10:54 | disposition home or self-care (01) | DRG 226 ==
LOC: HO.ED 07:23 → HO.EDOVER 11:01 → HO.S3 23:46
PROVIDERS: Student in an Organized Health Care Education/Training Program; Admitting Provider Physician Assistant Medical; Emergency Provider Emergency Medicine; PCP Internal Medicine Medical Oncology; Visit Provider Hospitalist
DX: K61.0 Anal abscess (principal); C50.911 Malignant neoplasm of unspecified site of right female breast; I10 Essential (primary) hypertension; F41.9 Anxiety disorder, unspecified; F32.A Depression, unspecified; Z87.891 Personal history of nicotine dependence; Z79.3 Long term (current) use of hormonal contraceptives; Z79.811 Long term (current) use of aromatase inhibitors; Z79.899 Other long term (current) drug therapy
CPT/HCPCS: 36415; 74177; 80048; 80076; 80202; 82565; 83605; 84702; 85025; 85027; 87040; 99285; J2003; J2270; J2405; J2543; J3373; J3374; Q9967

== ENCOUNTER → 2025-03-05 06:20 | Outpatient (BNV) | payer OTHER, SELFPAY | PROVIDERS: Emergency Provider Emergency Medicine; PCP Internal Medicine Medical Oncology; Visit Provider Radiology Body Imaging | DX: L02.215 Cutaneous abscess of perineum (principal) | CPT/HCPCS: 74177 ==

== ENCOUNTER → 2025-03-05 11:01 | Outpatient (BNV) | payer OTHER, SELFPAY | PROVIDERS: Admitting Provider Physician Assistant Medical; Emergency Provider Emergency Medicine; PCP Internal Medicine Medical Oncology; Visit Provider Physician Assistant Surgical | DX: L02.215 Cutaneous abscess of perineum (principal); K61.0 Anal abscess | CPT/HCPCS: 99222; 99232 ==

== ENCOUNTER → 2025-03-05 11:01 | Outpatient (BNV) | payer OTHER, SELFPAY | PROVIDERS: Admitting Provider Physician Assistant Medical; Emergency Provider Emergency Medicine; PCP Internal Medicine Medical Oncology; Visit Provider Student in an Organized Health Care Education/Training Program | DX: L02.215 Cutaneous abscess of perineum (principal) | CPT/HCPCS: 99223; 99239 ==

== ENCOUNTER 2025-06-23 07:20 | Outpatient (REF) | payer OTHER, SELFPAY ==
--- OUTSIDE RECORDS SUMMARY | 2024-08-19 12:00 | XMS_ITS ---
Author Organization Bhanu Armendariz III, MD Address [address] [place] [address] [place] [address] Care Team Providers Care Straw Hat Brim Cutter Operator Name Role Phone Bhanu Armendariz III, MD Primary Care Provider Dr. Bhanu Armendariz III [facility] REASON FOR VISIT annual exam Social History Sex Assigned At : Social History Observation Description Sex Assigned At Female Encounters Encounter Location Date Provider Diagnosis Bhanu Armendariz III, MD [address] [place] [address] [address] [facility] [facility] [place] [address] 08/19/2024 Bhanu Armendariz Plan Of Treatment Next Appt Details Provider Name:Bhanu Armendariz , 06/26/2025 04:00:00 PM, [address] [place] [address] [place], [address], Provider Name:Bhanu Armendariz , 03/08/2026 02:00:00 PM, [address] [place] [address] [place], [address], Progress Notes * Alexa ROSSDOB:[birth year] (49 yo F)Acc No.[id number]:08/19/2024 Progress Notes Patient: Pardeep MAYURAlexa Provider: Janee Armendariz MD :1975 A ge:48 Y S ex:Female Date:08/19/2024 Address:[address] [place] , [id number] Pcp:Bhanu Armendariz III, MD Subjective: * Chief Complaints: * 1 . Annual exam. * Medical History: Objective: * Vitals: Assessment: Plan: * Treatment: * Images: * The named appointment provid er may or may not be the originator of this progress note, and it is not deemed complete until electronically signed by the appointment provider. Sign off status: Pending * Provider: Janee Armendariz MD Date: 0 08/19/2024 Generated for Beny calhoun/Micki/Yesseniaransmitting on: 08/24/2024 07:23 AM EST
--- OUTSIDE RECORDS SUMMARY | 2024-09-22 12:30 | XMS_ITS ---
Author Organization Bhanu Armendariz III, MD Address [address] [place] [address] [place] [address] Care Team Providers Care Fourdrinier Machine Operator Name Role Phone Bhanu Armendariz III, MD Primary Care Provider Dr. Bhanu Armendariz III [facility] REASON FOR VISIT annual exam Social History Sex Assigned At : Social History Observation Description Sex Assigned At Female Encounters Encounter Location Date Provider Diagnosis Bhanu Armendariz III, MD [address] [place] [address] [place] [address] 09/22/2024 Bhanu Armendariz Plan Of Treatment Next Appt Details Provider Name:Bhanu Armendariz , 06/26/2025 04:00:00 PM, [address] [place] [address] [place], [address], Provider Name:Bhanu Armendariz , 03/08/2026 02:00:00 PM, [address] [place] [address] [place], [address], Progress Notes * Alexa ROSSDOB:[birth year] (49 yo F)Acc No.[id number]:09/22/2024 Progress Notes Patient: Pardeep SIMALEXANDRUAlexa Provider: Janee Armendariz MD :1975 A ge:48 Y S ex:Female Date:09/22/2024 Address:[address] [place], [id number] Pcp:Bhanu Armendariz III, MD Subjective: * Chief [...] * Provider: Janee Armendariz MD Date: 0 09/22/2024 Generated for Beny calhoun/Micki/Yesseniaransmitting on: 08/24/2024 07:24 AM EST
--- OUTSIDE RECORDS SUMMARY | 2024-11-24 04:00 | XMS_ITS ---
Author Organization [facility] Address [address] [place] [address] Care Team Providers Care Customer Account Manager Name Role Phone Marcello WILSON, Bhanu Primary Care Provider Unavailab blanca Tian Mia Ross [phone] Encounters Encounter Location Date Provider Diagnosis [address] [address] 11/24/2024 Mia Tian Plan Of Treatment Next Appt Details Provider Name:Mia Tian , 07/23/2025 08:00:00 AM, [address] [place], [address], Progress Notes * Alexa ROSSDOB:[birth year] (49 yo F)Acc No.[id number]:11/24/2024 Progress Note Patient: Alexa LEMUS Provider: Dandre Tian DPM :1975 A ge:49 Y S ex:Female Date:11/24/2024 Address:[facility] [address] [id number] Pcp:Bhanu Armendariz MD Subjective: * Chief Complaints: [...] 11/24/2024 Generated for Beny calhoun/Micki/Jaleesa on: 1 08/24/2024 07:23 AM EST
--- OUTSIDE RECORDS SUMMARY | 2024-12-01 03:00 | XMS_ITS ---
Author Organization [facility] Address [address] [place] [address] Care Team Providers Care Operations Manager Station Name Role Phone Marcello WILSON, Bhanu Primary Care Provider Unavailab blanca Tian Mia Unavailable [phone] Inman Encounters Encounter Location Date Provider Diagnosis [address] [address] 12/01/2024 iMa Tian Plan Of Treatment Next Appt Details Provider Name:Mia Tian , 07/23/2025 08:00:00 AM, [address] [place] [address], [address], Progress Notes * Alexa ROSSDOB:[birth year] (49 yo F)Acc No.[id number]:12/01/2024 Progress Note Patient: Pardeep Alexa MERCHANT Provider: Dandre Tian DPM :1975 A ge:49 Y S ex:Female Date:12/01/2024 Address:[facility] [place] [address] [id number] Pcp:Bhanu Armendariz MD Subjective: * Chief Complaints: [...] DPM Date: 0 12/01/2024 Generated for Beny Akbar/Jaleesa on: 1 08/24/2024 07:24 AM EST
--- OUTSIDE RECORDS SUMMARY | 2024-12-17 08:39 | XMS_ITS ---
Author Organization Bhanu Armendariz III, MD Address [address] [place] [address] Care Team Providers Care Director Of Cardiology Service Line Name Role Phone Bhanu Armendariz III, MD Primary Care Provider [phone] Dr. Bhanu Armendariz III [facility] REASON FOR VISIT Zepbound denial from [facility] Social History Sex Assigned At : Social History Observation Description Sex Assigned At Female Encounters Encounter Location Date Provider Diagnosis Bhanu Armendariz III, MD [address] [place] [address] [place] [address] 12/17/2024 Bhanu Armendariz Plan Of Treatment Next Appt Details Provider Name:Bhanu Armendariz , 06/26/2025 04:00:00 PM, [address] [place] [address] [place], [address], Provider Name:Bhanu Armendariz , 03/08/2026 02:00:00 PM, [address] [place] [address] [place], [address], Progress Notes * Alexa ROSSDOB:[birth year] (49 yo F)Acc No.[id number]:12/17/2024 Patient: Pardeep MAYUR Alexa :1975 A ge:49 Y S ex:Female Address:[address] [place] [address] * true * Date: Generated for Beny calhoun/Micki/Jaleesa on: 1 08/24/2024 07:23 AM EST
--- OUTSIDE RECORDS SUMMARY | 2025-03-04 09:00 | XMS_ITS ---
Author Organization Bhanu Armendariz III, MD Address [address] [place] [address] Care Team Providers Care Access Services Assistant Name Role Phone Bhanu Armendariz III, MD Primary Care Provider [phone] Dr. Bhanu Armendariz III [facility] Allergies Allergen (clinical drug ingredient) Drug/Non Drug Allergy documented on EMR Reaction Allergy Type Onset Date Status No Known Drug Allergy Unknown Drug Allergy Active No Known Food Allergy Unknown Drug Allergy Active Reason For Referral Reason Urgent Appointment R equest Consult and Treat Diagnosis 1 Anal abscess (K61.0) Referral Organization Bhanu Armendariz III, MD Referring Provider First Name Bhanu Referring Provider Last Name Marcello Referring Provider Speciality Internal M edicine Referred Provider Anam Wallis Referred Provider Specialty General Surg domo General Notes DEtta 03/20/2025 03:31:40 PM > Per patient the issue has resolved and no longer needs this referral. Stated she was treated in the hospital Referral Priority Urgent REASON FOR VISIT annual exam Medications Medication SIG (Take, Route, Frequency, Duration) Notes Start Date End Date Status Metoprolol Succinate ER 50 MG TAKE 1 TABLET BY MOUTH TWICE A DAY Active Atorvastatin Calcium 10 MG TAKE 1 TABLET BY MOUTH EVERY DAY Active diazePAM 5 MG 1 tablet as needed O rally every 8 hours x 3 prior to surgery 06/24/2019 Active hydrALAZINE HCl 10 MG TAKE 2 TABLETS BY MOUTH FOUR TIMES A DAY 90 DAYS Active metroNIDAZOLE 500 MG [address] ee times a day 05/02/2021 Active Zepbound 7.5 MG/0.5ML 0.5 mL Subcutaneou s once a week for 30 days 03/04/2025 08/30/2025 Active Anastrozole 1 MG 1 tablet Orally Once a day Active oxyBUTYnin Chloride 5 MG 1 tablet Orally Twice a day Active ARIPiprazole 5 MG 1 tablet Orally Once a day Active Sertraline HCl 100 MG 2 tablet Orally at bedtime Active Lupron Depot (1-Month) 7.5 MG as directed Intramuscular Ac tive Doxepin HCl 6 MG 1 tablet at bedtime Orally Once a day Active Multi Vitamin Active Zoloft 100 MG 1 tablet Orally Once a day Active Social History Tobacco Use: Social History Observation Description Date Details (start date - stop date) Former Smoker NA - NA Sex Assigned At : Social History Observation Description Sex Assigned At Female Tobacco Control (Standard) Question Answer Notes Tobacco use: Former smoker How long has it been since you last smoked? 5-10 years Additional Findings: Tobacco non-user Ex-cigaret te smoker AUDIT-C (Standard) Question Answer Notes Did you have a drink containing alcohol in the p ast year? No Points 0 Interpretation Negative Problems Problem Type SNOMED Code ICD Code Onset Dates Problem Status W/U Status Risk Notes Problem [id number] Perianal abscess (K61.0) Active confirmed She has completed the antibiotic. The pain and erythema resolved and the palpable abnormality is no longer there. Vital Signs Temperature 97.7 degrees Fahrenheit 03/04/20 25 Blood pressure systolic 107 mm Hg 03/04/20 25 Blood pressure diastolic 79 mm Hg 025 Heart Rate 97 /min 03/04/2025 Height 66 in 03/04/2025 Weight 287 lbs 03/04/2025 BMI 46.32 kg/m2 03/04/2025 Encounters Encounter Location Date Provider Diagnosis Bhanu Armendariz III, MD [address] [place] [address] [address] [place], [place] [address] 03/04/2025 Bhanu Armendariz Invasive ductal carcinoma of right breast C50.911 ; Morbid obesity E66.01 ; Former smoker Z87.891 ; Factor V Leiden mutation D68.51 ; Acquired hypothyroidism E03.9 and Perianal abscess K61.0 Assessments Encounter Date Diagnosis (ICD Code) Assessment Notes Treat ment Notes Treatment Clinical Notes 03/04/2025 Invasive ductal carcinoma of right breast (ICD-10 - C50.911) Her adjuvant endocrine therapy was continued. There is no sign of relapse at this time. There is no sign of a new primary. She has been compliant with her therapy and appointments. She was soon complete her fifth year of adjuvant endocrine therapy.She is taking anastrozole 1 mg daily. 03/04/2025 Morbid obesity (ICD-10 - E66.01) She has lost 5 wounds. Her medication was continued at the current dose. Monthly followup will continue. She is having no side effects. 03/04/2025 Former smoker (ICD-1 0 - Z87.891) She has a strategy mapped out to prevent relapse in times of stress and illness. 03/04/2025 Factor V Leiden mutation (ICD-10 - D68.51) She has had no episodes of blood clotting. Her father has a Leiden mutation and one episode of clotting. 03/04/2025 Acquired hypothyroidism (ICD-10 - E03.9) She was continued on current therapy. Blood work will be done in detail in the near future at the weight loss program at [facility]. 03/04/2025 Perianal abscess (ICD-10 - K61.0) This is an acute finding was symptoms present for a week. She was referred to the emergency room. Plan Of Treatment Medication Medication Name Sig Start Date Stop Date Notes Metoprolol Succinate ER 50 MG TAKE 1 TAB LET BY MOUTH TWICE A DAY Atorvastatin Calcium 10 MG TAKE 1 TABLET BY MOUTH EVERY DAY diazePAM 5 MG 1 tablet as needed O rally every 8 hours x 3 prior to surgery 06/24/2019 hydrALAZINE HCl 10 MG TAKE 2 TABLETS BY MOUTH FOUR TIMES A DAY 90 DAYS metroNIDAZOLE 500 MG 1 tablet Orally Thr ee times a day 05/02/2021 Zepbound 7.5 MG/0.5ML 0.5 mL Subcutaneou s once a week for 30 days 03/04/2025 08/30/2025 Anastrozole 1 MG 1 tablet Orally Once a day oxyBUTYnin Chloride 5 MG 1 tablet Orally Twice a day ARIPiprazole 5 MG 1 tablet Orally Once a day Sertraline HCl 100 MG 2 tablet Orally at bedtime Lupron Depot (1-Month) 7.5 MG as directed Intramuscular Doxepin HCl 6 MG 1 tablet at bedtime Orally Once a day Multi Vitamin Zoloft 100 MG 1 tablet Orally Once a day Referrals Referral Date Details 03/04/2025 03/04/2025, Urgent A ppointment Request Consult and Treat, Anam Bimal Next Appt Details Follow Up: 2 - 3 Days, Chio n: Telehealth Provider Name:Bhanu Waldron Armendariz , 06/26/2025 04:00:00 PM, [address] [place] [address] [address], [place], [address], Provider Name:Bhanu Waldron Marcello , 03/08/2026 02:00:00 PM, [address] [place] [address] [address], [place], [address], Progress Notes * MILENAAlexa MURDOCKDOB:[birth year] (49 yo F)Acc No.[id number]:03/04/2025 Progress Notes Patient: Alexa LEMUS Provider: Janee Armendariz MD :1975 A ge:49 Y S ex:Female Date:03/04/2025 Address:[address] [place] [address] [id number] Pcp:Bhanu Armendariz III, MD Subjective: * Chief Complaints: * A nnual exam * HPI: D epression Screening: She comes to the office today at the age of 49 for her annual visit. Her insurance will not cover her Zepbound anymore. She has stopped taking her thyroid medication for unclear reasons. I have referred her to a weight loss specialist so that she may be able to get the injectable weight loss medication covered. She mentioned that she has a sore on her left buttock close to her anus. On examination there was a large subcutaneous abscess which was tender measuring at least 8 cm. She has had no recent rectal instrumentation. She was referred to the emergency room where a CT scan and surgical consultation an urgent treatment. PHQ-9 L ittle interest or pleasure in doing things?Several days F eeling down, depressed, or hopeless S everal days T rouble falling or staying asleep, or sleeping too much S everal days F eeling tired or having little energy S everal days P oor appetite or overeating N ot at all F eeling bad about yourself or that you are a failure, or have let yourself or your family down N ot at all T rouble concentrating on things, such as reading the newspaper or watching television S everal days M oving or speaking so slowly that other people could have noticed; or the opposite, being so fidgety or restless that you have been moving around a lot more than usual N ot at all T houghts that you would be better off or of hurting yourself in some way N ot at all T otal Score 5 I nterpretation M ild Depression S GENEVA Questions: SDOH Questions I n the past year have you been worried about losing your housing? N o I n the past year have you or any family members you live with been unable to get any of the following when it was really needed? Check all that apply: N one * ROS: G eneral/Constitutional: pain L eft buttock. C hills d enies. F atigue?admits. F ever d enies. E NT: Decreased hearing d enies. R espiratory: Cough d enies. C ardiovascular: Chest pain with exertion d enies. D yspnea on exertion?denies. S hortness of breath d enies. G astrointestinal: Constipation a dmits. D ecreased appetite d enies.?Diarrhea d enies. H eartburn d enies. N ausea d enies. R ectal bleeding?denies. V omiting d enies. H ematology: bruising d enies. p etechiae d enies. S wollen glands n one have been noted. G enitourinary: Frequent urination a t night. M usculoskeletal: Muscle aches L eft buttock. P ainful joints d enies. S ciatica d enies. W eakness d enies. S kin: Itching d enies. R tanmay d enies. S kin lesion(s)?denies. N eurologic: Difficulty speaking d enies. D izziness d enies.?Headache d enies. L ow back pain d enies. P sychiatric: Depressed mood d enies. * Medical History: * Surgical History: d ermoid cyst right ovary removed 09/2011vaginal cyst removed 09/2011right lumpectomy and sentinel node sampling for breast cancer 06/2019Dental implant surgery Dental surgery * Hospitalization/Major Diagno stic Procedure: N o history * Family History: F ather: alive 60 yrs, crohns disease, type II diabetes, obesity, hypertension, hyperlipidemia, factor V Leiden, dvt, diagnosed with Hyperlipidemia, DM, HTN. M other: alive 59 yrs, hypertension, migraine headaches,, scoliosis, diagnosed with HTN. P aternal uncle: alive 55 yrs, rare blood disorder as a child diganosis unknown.. 1 sister(s) . . A sister has IBS and a thyroid disorder. She has no children. There is no history of breast cancer. She is not aware of any family history of mental illness or substance use disorder or addiction. * Social History: T obacco Use: T obacco Control (Standard) T obacco use: F ormer smoker H ow long has it been since you last smoked??5-10 years A dditional Findings: Tobacco non-user E x-cigarette smoker D rugs/Alcohol: D rugs H ave you used drugs other than those for medical reasons in the past 12 months? N o D rug/Alcohol: A ROBBY-C (Standard) D id you have a drink containing alcohol in the past year? N o P oints 0 I nterpretation N egative S he was born [place], [place] and is single. 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 Smoking: No history of smoking. * Medications: T akingAtorvastatin Calcium 10 MG Tablet TAKE 1 TABLET BY MOUTH EVERY DAY diazePAM 5 MG Tablet 1 tablet as needed Orally every 8 hours x 3 prior to surgery Multi Vitamin Zoloft 100 MG Tablet 1 tablet Orally Once a day Lupron Depot (1-Month) 7.5 MG Kit as directed Intramuscular Doxepin HCl 6 MG Tablet 1 tablet at bedtime Orally Once a day ARIPiprazole 5 MG Tablet 1 tablet Orally Once a day Sertraline HCl 100 MG Tablet 2 tablet Orally at bedtime oxyBUTYnin Chloride 5 MG Tablet 1 tablet Orally Twice a day metroNIDAZOLE 500 MG Tablet 1 tablet Orally Three times a day Anastrozole 1 MG Tablet 1 tablet Orally Once a day hydrALAZINE HCl 10 MG Tablet TAKE 2 TABLETS BY MOUTH FOUR TIMES A DAY 90 DAYS Metoprolol Succinate ER 50 MG Tablet Extended Release 24 Hour TAKE 1 TABLET BY MOUTH TWICE A DAY Taking Atorvastatin Calcium 10 MG Tablet TAKE 1 TABLET BY MOUTH EVERY DAY Taking diazePAM 5 MG Tablet 1 tablet as needed Orally every 8 hours x 3 prior to surgery Taking Multi Vitamin Taking Zoloft 100 MG Tablet 1 tablet Orally Once a day Taking Lupron Depot (1-Month) 7.5 MG Kit as directed Intramuscular Taking Doxepin HCl 6 MG Tablet 1 tablet at bedtime Orally Once a day Taking ARIPiprazole 5 MG Tablet 1 tablet Orally Once a day Taking Sertraline HCl 100 MG Tablet 2 tablet Orally at bedtime Taking oxyBUTYnin Chloride 5 MG Tablet 1 tablet Orally Twice a day Taking metroNIDAZOLE 500 MG Tablet 1 tablet Orally Three times a day Taking Anastrozole 1 MG Tablet 1 tablet Orally Once a day Taking hydrALAZINE HCl 10 MG Tablet TAKE 2 TABLETS BY MOUTH FOUR TIMES A DAY 90 DAYS Taking Metoprolol Succinate ER 50 MG Tablet Extended Release 24 Hour TAKE 1 TABLET BY MOUTH TWICE A DAY DiscontinuedZepbound 7.5 MG/0.5ML Solution Auto-injector inject 0.5 mL Subcutaneously once a week 30 days Metoprolol Tartrate 50 MG Tablet 1 tablet with food Orally Twice a day Amoxicillin 500 MG Tablet Oral , Notes to Pharmacist: Dental ProcedureZepbound 5 MG/0.5ML Solution Auto-injector 0.5 mL Subcutaneous weekly Medication List reviewed and reconciled with the patientDiscontinued Zepbound 7.5 MG/0.5ML Solution Auto-injector inject 0.5 mL Subcutaneously once a week 30 days Discontinued Metoprolol Tartrate 50 MG Tablet 1 tablet with food Orally Twice a day Discontinued Amoxicillin 500 MG Tablet Oral , Notes to Pharmacist: Dental ProcedureDiscontinued Zepbound 5 MG/0.5ML Solution Auto-injector 0.5 mL Subcutaneous weekly Medication List reviewed and reconciled with the patient * Allergies: N o Known Drug AllergyNo Known Food Allergyno[Allergies Verified] Objective: * Vitals: H t: 66, Wt: 287, BMI:46.32, BP: 107/79, HR: 97, Temp: 97.7, Wt-k.18. * P ast Orders: Lab:Bacterial Vaginosis Pane l * Collection Date 02/17/2025 12/13/2021 Collection Time 07:55 AM 10:58 AM Order Date 02/17/2025 12/13/2021 Trichomonas DNA Probe NR Negative (Ref Range: Negative) Gardnerella DNA Probe NR Negative (Ref Range: Negative) Monet DNA Probe NR Negative (Ref Range: Negative) Trichomonas vaginalis PCR NOT DETECTED (Ref Range: Not Detect) NR Bacterial Vaginosis PCR POSITIVE A (Ref Range: Negative) NR Monet Group PCR NOT DETECTED (Ref Range: Not Detect) NR Monet glab krusei PCR NOT DETECTED (Ref Range: Not Detect) NR * Lab:CT NG by PCR * Collection Date 02/17/2025 12/13/2021 Collection Time 07:55 AM 10:58 AM Order Date 02/17/2025 12/13/2021 CT PCR NOT DETECTED (Ref Range: Not Detect.) NOT DETECTED (Ref Range: Not Detect.) NG PCR NOT DETECTED (Ref Range: Not Detect.) NOT DETECTED (Ref Range: Not Detect.) * Examination: G eneral Examination: GENERAL APPEARANCE: p leasant, well nourished, well developed, in no acute distress, calm and relaxed: morbidly obese: woman. HEAD: a traumatic, normocephalic. EYES: e alysha, perrla, anicteric, conjugate. EARS: n ormal. NOSE: s eptum intact. ORAL CAVITY: n ormal, unremarkable. NECK/THYROID: n o jugular venous distention, no carotid bruit, thyroid normal. LYMPH NODES: n o enlarged lymph nodes,spleen normal. SKIN: n o suspicious lesions, anicteric. HEART: n o clicks, gallops, murmurs, or rubs, regular rhythm, S1, S2 normal, no s3, or vascular bruits. LUNGS: c lear to auscultation . BREASTS: no masses palpable bilaterally, Healed scars left breast. ABDOMEN: b owel sounds normal, no ascites, no organomegaly, no mass. RECTAL EXAM: n ot examined. MUSCULOSKELETAL: e xtremities unremarkable, no clubbing, cyanosis or edema, Large, painful mass under skin left buttock close to the anus without abnormality of skin. PERIPHERAL PULSES: n ormal. NEUROLOGIC: a lert and oriented, cranial nerves 2-12 grossly intact, deep tendon reflexes 2+ symmetrical, motor strength normal upper and lower extremities, sensory exam intact. PSYCH: a lert, oriented: cognitive function intact: cooperative with exam: good eye contact: speech clear: thought process logical, goal directed. ? Assessment: * Assessment: 1. I nvasive ductal carcinoma of right breast - C50.911 (Primary) N otes :Her adjuvant endocrine therapy was continued. There is no sign of relapse at this time. There is no sign of a new primary. She has been compliant with her therapy and appointments. She was soon complete her fifth year of adjuvant endocrine therapy.She is taking anastrozole 1 mg daily. 2 . M orbid obesity - E66.01 N otes :She has lost 5 wounds. Her medication was continued at the current dose. Monthly followup will continue. She is having no side effects. 3 . F ormer smoker - Z87.891 N otes :She has a strategy mapped out to prevent relapse in times of stress and illness. 4 . F actor V Leiden mutation - D68.51 N otes :She has had no episodes of blood clotting. Her father has a Leiden mutation and one episode of clotting. 5 . A cquired hypothyroidism - E03.9 S pecify :she will N otes :She was continued on current therapy. Blood work will be done in detail in the near future at the weight loss program at [facility]. 6 . P erianal abscess - K61.0 N otes :This is an acute finding was symptoms present for a week. She was referred to the emergency room. Plan: * Treatment: 2. O thers Continue hydrALAZINE HCl Tablet, 10 MG, TAKE 2 TABLETS BY MOUTH FOUR TIMES A DAY 90 DAYS; C ontinue Metoprolol Succinate ER Tablet Extended Release 24 Hour, 50 MG, TAKE 1 TABLET BY MOUTH TWICE A DAY; C ontinue Atorvastatin Calcium Tablet, 10 MG, TAKE 1 TABLET BY MOUTH EVERY DAY. ? Referral To:Anam Wallis General Surgery Reason:Urgent Appointment Request Consult and Treat * Procedure Codes: * Preventive Medicine: Counseling: C are goal follow-up plan: Counseling for abnormal BMI given Y es Above Normal BMI Follow-up D ietary management education, guidance, and counseling, Dietary needs education, Exercise promotion: strength training, Exercise promotion: stretching, Feeding regime, Giving encouragement to exercise, Lifestyle education regarding diet, Nutrition / feeding management, Nutrition therapy, Prescribed activity/exercise education, Prescribed diet education, Prescribed dietary intake, Special diet education, Weight monitoring , Intervention, Order not done: Medical or Other reason not done S moking/Tobacco Use Patient counseled on the dangers of tobacco use and urged to quit. 0 03/04/2025 * Follow Up: 2 - 3 Days (Reason: Telehealth) * Images: * Sign off status: Completed true * Provider: Janee Armendariz MD Date: 0 03/04/2025 Generated for Toddi ng/Facamilog/eTransmitting on: 1 08/24/2024 07:24 AM EST History and Physical Notes * HPI (History of Present Illness) Category Sub-Category Detail Notes Depression Screening PHQ-9 Little inte rest or pleasure in doing things: Several days Feeling down, depressed, or hopeless: Se veral days Trouble falling or staying asleep, or sl eeping too much: Several days Feeling tired or having little energy: S everal days Poor appetite or overeating: Not at all Feeling bad about yourself o r that you are a failure, or have let yourself or your family down: Not at all Trouble concentrating on thi ngs, such as reading the newspaper or watching television: Several days Moving or speaking so slowly that other people could have noticed; or the opposite, being so fidgety or restless that you have been moving around a lot more than usual: Not at all Thoughts that you would be b mae off or of hurting yourself in some way: Not at all Total Score: 5 Interpretation: Mild Depression SDOH Questions SDOH Questions In the past year have you been worried about losing your housing?: No In the past year have you or any family members you live with been unable to get any of the following when it was really needed? Check all that apply:: None Examination Category Sub-Category Detail Notes General Examination GENERAL APPEARANCE: pleasant , well nourished, well developed, in no acute distress, calm and relaxed: morbidly obese: woman HEAD: atraumatic, normocep halic EYES: eomi, perrla, anicte jenna, conjugate EARS: normal NOSE: septum intact NECK/THYROID: no jugular venous di stention, no carotid bruit, thyroid normal HEART: no clicks, gallops, murmurs, or rubs, regular rhythm, S1, S2 normal, no s3, or vascular bruits LUNGS: clear to auscultatio n ABDOMEN: bowel sounds normal, no ascites, no organomegaly, no mass NEUROLOGIC: alert and oriented, cranial nerves 2-12 grossly intact, deep tendon reflexes 2+ symmetrical, motor strength normal upper and lower extremities, sensory exam intact SKIN: no suspicious lesion s, anicteric PERIPHERAL PULSES: normal BREASTS: no masses palpable b ilaterally, Healed scars left breast MUSCULOSKELETAL: extremities unremark able, no clubbing, cyanosis or edema, Large, painful mass under skin left buttock close to the anus without abnormality of skin LYMPH NODES: no enlarged lymph no milly,spleen normal RECTAL EXAM: not examined PSYCH: alert, oriented: cog nitive function intact: cooperative with exam: good eye contact: speech clear: thought process logical, goal directed ORAL CAVITY: normal, unremarkable Consultation Request Notes Referral Date Referring Provider Referred Provider Not es 03/04/2025 Bhanu Armendariz John Urgent Appoi ntment Request Consult and Treat
--- OUTSIDE RECORDS SUMMARY | 2025-03-05 07:22 | XMS_ITS ---
Author Organization Bhanu Armendariz III, MD Address [address] [place] [address] [place] [address] Care Team Providers Care Carbon Accountant Name Role Phone Bhanu Armendariz III, MD Primary Care Provider Dr. Bhanu Armendariz III [facility] REASON FOR VISIT FYI Social History Sex Assigned At : Social History Observation Description Sex Assigned At Female Encounters Encounter Location Date Provider Diagnosis hBanu Armendariz III, MD [address] [place] [address] [address] [place] [address] 03/05/2025 Bhanu Armendariz Plan Of Treatment Next Appt Details Provider Name:Bhanu Armendariz , 06/26/2025 04:00:00 PM, [address] [place] [address] [place], [address], Provider Name:Bhanu Armendariz , 03/08/2026 02:00:00 PM, [address] [place] [address] [place], [address], Progress Notes * Alexa ROSSDOB:[birth year] (49 yo F)Acc No.[id number]:03/05/2025 Patient: Alexa LEMUS :1975 A ge:49 Y S ex:Female Address:[address] [place] [address] * true * Date: Generated for Printi ng/Faxing/eTransmitting on: 1 08/24/2024 07:24 AM EST
--- OUTSIDE RECORDS SUMMARY | 2025-03-06 04:07 | XMS_ITS ---
Author Organization Bhanu Armendariz III, MD Address [address] [place] [address] [place] [address] Care Team Providers Care Mine Manager Name Role Phone Bhanu Armendariz III, MD Primary Care Provider Dr. Bhanu Armendariz III [facility] REASON FOR VISIT FYI Social History Sex Assigned At : Social History Observation Description Sex Assigned At Female Encounters Encounter Location Date Provider Diagnosis Bhanu Armendariz III, MD [address] [place] [address] [place] [address] 03/06/2025 Bhanu Armendariz Plan Of Treatment Next Appt Details Provider Name:Bhanu Armendariz , 06/26/2025 04:00:00 PM, [address] [place] [address] [place], [address], Provider Name:Bhanu Armendariz , 03/08/2026 02:00:00 PM, [address] [place] [address] [place], [address], Progress Notes * Alexa ROSSDOB:[birth year] (49 yo F)Acc No.[id number]:03/06/2025 Patient: Alexa LEMUS :1975 A ge:49 Y S ex:Female Address:[address] [place] [address] * true * Date: Generated for Printi ng/Faxing/eTransmitting on: 1 08/24/2024 07:24 AM EST
--- OUTSIDE RECORDS SUMMARY | 2025-03-06 07:15 | XMS_ITS ---
Author Organization Bhanu Armendariz III, MD Address [address] [place] [address] [place] [address] Care Team Providers Care Canal Driver Name Role Phone Bhanu Armendariz III, MD Primary Care Provider Dr. Bhanu Armendariz III [facility] [phone] REASON FOR VISIT Telehealth Social History Sex Assigned At : Social History Observation Description Sex Assigned At Female Encounters Encounter Location Date Provider Diagnosis Bhanu Armendariz III, MD [address] [place] [address] [place] [phone] 03/06/2025 Bhanu Armendariz Plan Of Treatment Next Appt Details Provider Name:Bhanu Armendariz , 06/26/2025 04:00:00 PM, [address] [place] [address] [place], [phone], Provider Name:Bhanu Armendariz , 03/08/2026 02:00:00 PM, [address] [place] [address] [place], [address], Progress Notes * Alexa ROSSDOB:[birth year] (49 yo F)Acc No.[id number]:03/06/2025 Patient: Alexa LEMUS Provider: Janee Armendariz MD :1975 A ge:49 Y S ex:Female Date:03/06/2025 Address:[address] [id number] Pcp:Bhanu Armendariz III, MD Subjective: * Chief Complaints: * 1 . Telehealth. * Medical History: Objective: * Vitals: Assessment: Plan: * Treatment: * Images: * The named appointment provid er may or may not be the originator of this progress note, and it is not deemed complete until electronically signed by the appointment provider. Sign off status: Pending * Provider: Janee Armendariz MD Date: 0 03/06/2025 Generated for Beny calhoun/Micki/Jaleesa on: 08/24/2024 07:23 AM EST
--- OUTSIDE RECORDS SUMMARY | 2025-03-11 04:00 | XMS_ITS ---
Author Organization Bhanu Armendariz III, MD Address [address] [place] [address] Care Team Providers Care Wrapping Checker Name Role Phone Bhanu Armendariz III, MD Primary Care Provider Dr. Bhanu Armendariz III [facility] [phone] Allergies Allergen (clinical drug ingredient) Drug/Non Drug [...] Date Provider Diagnosis Bhanu Armendariz III, MD [address] [place] [address] [facility] [place] [address] 03/11/2025 Bhanu Armendariz Invasive ductal carcinoma of [...] future at the weight loss program at [facility]. 03/11/2025 Mixed hyperlipidemia (ICD-10 - E78.2) [...] Reason: O V Provider Name:Bhanu Armendariz , 06/26/2025 04:00:00 PM, [address] [place] [address] [address], [place], [address], Provider Name:Bhanu Armendariz , 03/08/2026 02:00:00 PM, [address] [place] [address] [address], [place], [address], Progress Notes * Alexa ROSSDOB:[birth year] (49 yo F)Acc No.[id number]:03/11/2025 Patient: Alexa LEMUS Provider: Janee Armendariz MD :1975 A ge:49 Y S ex:Female Date:03/11/2025 Address:[facility] [id number] Pcp:Bhanu Armendariz III, MD Subjective: * Chief [...] daily life including swimming.She was discharged in [facility] on March 07 2025. She will continue [...] E x-cigarette smoker S he was born [place], [place] and is single. 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 Smoking: No history of smoking. * Medications: [...] future at the weight loss program at [facility]. 6 . M ixed hyperlipidemia - [...] 03/11/2025 Generated for Toddi lj/Micki/eTransmitting on: 1 08/24/2024 07:23 AM EST History and Physical Notes * [...]
--- OUTSIDE RECORDS SUMMARY | 2025-03-20 10:15 | XMS_ITS ---
Author Organization Bhanu Armendariz III, MD Address [address] [place] [address] Care Team Providers Care Ghost Writer Name Role Phone Bhanu Armendariz III, MD Primary Care Provider Dr. Bhanu Armendariz III [facility] [phone] Allergies Allergen (clinical drug ingredient) Drug/Non Drug [...] Date Provider Diagnosis Bhanu Armendariz III, MD [address] [place] [address] [facility] [place] [address] 03/20/2025 Bhanu Armendariz Invasive ductal carcinoma of [...] Months, Reason: OV Provider Name:Bhanu Armendariz , 06/26/2025 04:00:00 PM, [address] [place] [address] [address], [place], [address], Provider Name:Bhanu Armendariz , 03/08/2026 02:00:00 PM, [address] [place] [address] K[address] REYES, [place], [address], Progress Notes * Angelia ROSS:10/19 (49 yo F)Acc No.[id number]:03/20/2025 Progress Notes Patient: Alexa LEMUS Provider: Janee Armendariz MD :1975 A ge:49 Y S ex:Female Date:03/20/2025 Address:[facility] [address] [facility], [id number] Pcp:Bhanu Armendariz III, MD Subjective: * Chief [...] E x-cigarette smoker S he was born [place], [place] and is single. 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 Smoking: No history [...] 0 03/20/2025 Generated for Beny calhoun/Micki/Jaleesa on: 08/24/2024 07:23 AM EST History and Physical [...]
--- OUTSIDE RECORDS SUMMARY | 2025-06-19 11:45 | XMS_ITS ---
Author Organization Bhanu Armendariz III, MD Address [address] [place] [address] [address] [facility] [place] [address] Care Team Providers Care Tube Filler Name Role Phone Bhanu Armendariz III, MD Primary Care Provider Dr. Bhanu Armendariz III [facility] REASON FOR VISIT Follow up Social History Sex Assigned At : Social History Observation Description Sex Assigned At Female Encounters Encounter Location Date Provider Diagnosis Bhanu Armendariz III, MD [address] [place] [address] [address] [facility] [place] [address] 06/19/2025 Bhanu Armendariz Plan Of Treatment Next Appt Details Provider Name:Bhanu Armendariz , 06/26/2025 04:00:00 PM, [address] [place] [address] [place], [address], Provider Name:Bhanu Armendariz , 03/08/2026 02:00:00 PM, [address] [place] [address] [place], [address], Progress Notes * Alexa ROSSDOB:[birth year] (49 yo F)Acc No.[id number]:06/19/2025 Progress Notes Patient: Pardeep SIMAlexa [place] Provider: Janee Armenadriz MD :1975 A ge:49 Y S ex:Female Date:06/19/2025 Address:[address] [place] , [id number] Pcp:Bhanu Armendariz III, MD Subjective: * Chief Complaints: * 1 . Follow up. * Medical History: Objective: * Vitals: Assessment: Plan: * Treatment: * Images: * The named appointment provid er may or may not be the originator of this progress note, and it is not deemed complete until electronically signed by the appointment provider. Sign off status: Pending * Provider: Janee Armendariz MD Date: 08/20/2024 Generated for Beny calhoun/Micki/Catherinesmitting on: 08/24/2024 07:25 AM EST
--- OUTSIDE RECORDS SUMMARY | 2025-06-23 07:24 | XMS_ITS | Patient Health Record ---
Author Organization [facility] Address [address] [place] [address] Care Team Providers Care Paint And Table Edger Name Role Phone Bhanu Armendariz MD Primary Care Provider Unavailab Mia Shanks Unavailable [phone] Allergies No Known Allergies Reason For Referral [...] W/U Status Risk Notes Problem Tinea unguium (425293242) Tinea unguium (B35.1) Active confirmed Chronic,Rx management (4) Vital Signs Blood pressure diastolic 81 mm Hg 01/29/2025 Height 5ft5in in 01/29/2025 Blood pressure systolic 124 mm Hg 01/29/2025 Weight 300 lbs 01/29/2025 BMI 49.92 kg/m2 01/29/2025 Encounters Encounter Location Date Provider Diagnosis [facility] [address] 01/29/2025 Mia Tian Tinea unguium B35.1 ; Pain in right toe(s) M79.674 and Pain in left toe(s) M79.[address] [address] 10/30/2024 Mia Tian [address] [address] 01/27/2025 Mia Tian Assessments Encounter Date Diagnosis (ICD Code) Assessment Notes Treatment Notes Treatment Clinical Notes Section Notes 01/29/2025 Tinea unguium (ICD-10 - B35.1) Chronic,Rx management (4) EBM Medical prescription ordered and faxed 01/29/2025 Pain in right toe(s) (ICD-10 - M79.674) 01/29/2025 Pain in left toe(s) (ICD-10 - M79.675) Plan Of Treatment Pending Test Test Name Order Date *Liver Function Test (LFT) 03/06/2022 94131-Dijknxcb Plate 05/29/2022 89822-Vbaqvryi Plate 06/04/2023 87614- Debride <25 sq cm 06/12/2022 Next Appt Details Provider Name:Mia Tian , 07/23/2025 08:00:00 AM, [address] [place] [address], [address], Insurance Providers Payer Name Payer Address Payer Phone Subscriber Number Group Number Insured Name Patient Relationship to Insured Coverage Start Date Coverage End Date [facility] [address] [facility] [place] [id number] Alexa Beauchamp Self - patient is the insured 5 Medical (General) History Medical History History ICD Code Anxiety Cancer Depression Diverticulosis Headaches/Migraines High blood pressure Chicken pox Transfusions Surgical History Surgery Date(Month/Year) lumpectomy 06/2019
--- OUTSIDE RECORDS SUMMARY | 2025-06-23 07:24 | XMS_ITS | Patient Health Record ---
Author Organization Bhanu Armendariz III, MD Address [address] [place] [address] [place] [id number] Care Team Providers Care Administrative Assistant Name Role Phone Bhanu Armendariz III, MD Primary Care Provider Dr. Bhanu Armendariz III Unavailable [phone] Allergies Allergen (clinical drug ingredient) Drug/Non Drug Allergy documented on EMR Reaction Allergy Type Onset Date Status No Known Drug Allergy Unknown Drug Allergy Active No Known Food Allergy Unknown Drug Allergy Active Results Component Value Reference Range Notes CT NG by PCR Reviewed date:02/22/2025 08:05:27 PM Interpretation: Performing Lab:[facility], [address] [place] [phone] Notes/Report: CT PCR NOT DETECTED Not Detect. A not detected test result does not exclude the possibility of infection because test results can be affected by improper specimen collection, concurrent antibiotic therapy, or the number of organisms in the specimen which may be below the sensitivity of the test. As with many diagnostic tests, results from the Xpert CT/NG assay should be interpreted in conjunction with other laboratory and clinical data available to the clinician. Xpert CT/NG performance has not been evaluated in patients less than 14 years of age. The assay should not be used for the evaluation of suspected sexual abuse or for other medico-legal indications. Additional testing is recommended in any circumstance when false positive or false negative results could lead to adverse medical, social or psychological consequences. NG PCR NOT DETECTED Not Detect. A not detected test result does not exclude the possibility of infection because test results can be affected by improper specimen collection, concurrent antibiotic therapy, or the number of organisms in the specimen which may be below the sensitivity of the test. As with many diagnostic tests, results from the Xpert CT/NG assay should be interpreted in conjunction with other laboratory and clinical data available to the clinician. Xpert CT/NG performance has not been evaluated in patients less than 14 years of age. The assay should not be used for the evaluation of suspected sexual abuse or for other medico-legal indications. Additional testing is recommended in any circumstance when false positive or false negative results could lead to adverse medical, social or psychological consequences. Bacterial Vaginosis Panel Reviewed date:02/22/2025 08:05:27 PM Interpretation: Performing Lab:[facility], [address] [place] [phone] Notes/Report: Trichomonas vaginalis PCR NOT DETECTED Not Detect Bacterial Vaginosis PCR POSITIVE Negative The BV organism targets of the Xpert Xpress MVP test can be commensal in women; Xpert Xpress MVP positive results for bacterial vaginosis should be considered in conjunction with other clinical and patient information to determine the disease status. Organisms that are not detected by the Xpert Xpress MVP test have also been reported to be associated with BV and aerobic vaginitis. The Xpert Xpress MVP test performance has not been evaluated in patients under the age of 14. [employer] PCR NOT DETECTED Not Detect Monet glab krusei PCR NOT DETECTED Not Detect Lactic Acid-LAB USE ONLY Reviewed date:03/08/2025 05:05:12 AM Interpretation: Performing Lab:[facility], [address] [place] [phone] Notes/Report: Lactic Acid-LAB USE ONLY 1.3 0.5-2.0 mmol/L CT abdomen pelvis w con Reviewed date:03/08/2025 05:05:12 AM Interpretation: Performing Lab: Notes/Report: [address] [place] [address] CT Scan Report Signed Patient: Alexa Zamora MR#: [id number] : 1975 Acct:[id number] Age/Sex: 49 / F ADM Date: 03/05/25 Loc: HO.ED Attending Dr: Ordering Physician: Lila Arizmendi MD Date of Service: 03/05/25 Procedure(s): CT abdomen pelvis w IV con Accession Number(s): [id number] cc: Bhanu Armendariz MD; Lila Arizmendi MD Report Number: [id number]: Total DLP = 1497.00 mGy-cm EXAMINATION: CT ABDOMEN AND PELVIS WITH CONTRAST CLINICAL INFORMATION: r/o perirectal abcess, pain, erythema COMPARISON: Abdomen ultrasound on June 23, 2021. TECHNIQUE: Multidetector volumetric images were obtained from the superior aspect of the liver through the pubic symphysis following administration 100 cc of Omnipaque 350 intravenous contrast. Sagittal and coronal reformatted images were obtained on the technologist's workstation. Oral contrast: No This CT examination was performed using dose optimization techniques as appropriate, variously including the following: *Automated exposure control *Adjustment of mA and/or kV according to patient size (this includes techniques or standardized protocols for targeted exams where dose is matched to indication/reason for exam; i.e. extremities or head) *Use of iterative reconstruction technique FINDINGS: LUNG BASES: Lung bases are clear. No pleural effusions. LIVER: Hepatomegaly measuring 22.6 cm. Diffuse decreased echogenicity is compatible with hepatic steatosis. No focal lesions. BILIARY: Normal gallbladder. No biliary ductal dilatation. PANCREAS: Unremarkable. SPLEEN: Spleen measures 13.2 cm. No focal lesions. ADRENAL GLANDS: No nodules. KIDNEYS AND URETERS: No focal renal lesions or hydronephrosis. GASTROINTESTINAL TRACT: No bowel distention. Normal appendix in the right lower quadrant. Scattered diverticula along the sigmoid colon. Note the rectum is mildly low lying. No fat stranding or abscess surrounding the rectum. PERITONEUM/RETROPERITONEUM: No free fluid, fluid collection or free air. PERINEUM: There is an approximately 3.6 x 3.4 cm irregular hypodense area in the left perineum (3:103), surrounded by thick wall and fatty stranding of the local soft tissues. This left perineal abscess/phlegmon extends for approximately 6.8 cm in longest dimension on the sagittal plane (8:79). Note that the abnormal soft tissue surrounding this abscess/phlegmon extends towards the anus, without clear flat plane with the anal margins. ABDOMINAL WALL: Small fat-containing umbilical hernia. LYMPH NODES: No bulky adenopathy. VASCULAR: Mild atherosclerotic disease with calcifications. No abdominal aortic aneurysm. PELVIC VISCERA: Decompressed urinary bladder appears unremarkable. No suspicious pelvic masses. OSSEOUS STRUCTURES: No acute or destructive bone lesions. CT/CT abdomen pelvis w IV con IMPRESSION: 1. Left perineal abscess/phlegmon extending up to 6.8 cm long. Surrounding abnormal soft tissue wall and fat stranding extends towards the anus. No findings to suggest perirectal abscess. 2. Hepatomegaly. Hepatic steatosis. 3. Scattered sigmoid colonic diverticula. Electronically signed by: Yasmani Gaming MD 03/05/2025 09:53 AM EDT Dictated By: Yasmani Gaming MD Signed By: <Electronically signed by Yasmani Gaming MD in OV> 03/05/25952 DD/ 5 TD/TT: 03/05/25899 [facility]: [place] [address] CT Scan Report Signed Patient: Alexa Zamora MR#: [id number] : 1975 Acct:[id number] Age/Sex: 49 / F ADM Date: 03/05/25 Loc: HO.ED Attending Dr: Ordering Physician: Lila Arizmendi MD Date of Service: 03/05/25 Procedure(s): CT abd omen pelvis w IV con Accession Number(s): [id number] cc: Bhanu Armendariz MD; Lila Arizmendi MD Report Number: [id number]: Total DLP = 1497.00 mGy-cm EXAMINATION: CT ABDOMEN AND PELVI S WITH CONTRAST CLINICAL INFORMATION: r/o perirectal abces s, pain, erythema COMPARISON: Abdomen ultrasound o n June 23, 2021. TECHNIQUE: Multidetector volume tric images were obtained from the superior aspect of the liver through the pubic symphysis following administration 100 cc of Omnipaque 350 intravenous contrast. Sagittal and coronal reformatted images w ere obtained on the technologist's workstation. Oral contrast: No This CT examination was performed using dose optimization techniques as appropriate, various ly including the following: *Automated exposure control *Adjustment of mA an d/or kV according to patient size (this includes techniques or standardized protocols for targeted exams where dose is matched to indication/reason for exam; i.e. extremities or head) *Use of iterative reconstruction technique FINDINGS: LUNG BASES: Lung bas es are clear. No pleural effusions. LIVER: Hepatomegaly measuring 22.6 cm. Diffuse decreased echogenicity is compatible with hepatic steatosis. No focal lesions. BILIARY: Normal gallbladder. No biliary ductal dilatation. PANCREAS: Unremarkable. SPLEEN: Spleen measu res 13.2 cm. No focal lesions. ADRENAL GLANDS: No nodules. KIDNEYS AND URETERS: No focal renal lesions or hydronephrosis. GASTROINTESTINAL TRA CT: No bowel distention. Normal appendix in the right lower quadrant . Scattered diverticula along the sigmoid colon. Note the rectum is mildly low lying. No fat stranding or abscess surrounding the rectum. PERITONEUM/RETROPERI TONE UM: No free fluid, fluid collection or free air. PERINEUM: There is a n approximately 3.6 x 3.4 cm irregular hypodense area in the left perineum (3:103), surrounded by thick wall and fatty stranding of the loc al soft tissues. This left perineal abscess/phlegmon ext ends for approximately 6.8 cm in longest dimension on the sagittal plan e (8:79). Note that the abnormal soft tissue surrounding this abscess/phlegmon extends towards the anus, without clear flat plane wit h the anal margins. ABDOMINAL WALL: Smal l fat-containing umbilical hernia. LYMPH NODES: No bulk y adenopathy. VASCULAR: Mild atherosclerotic disease with calcifications. No abdominal aortic aneurysm. PELVIC VISCERA: Decompressed urinary bladder appears unremarkable. No suspicious pelvic masses. OSSEOUS STRUCTURES: No acute or destructive bone lesions. C T/CT abdomen pelvis w IV con IMPRESSION: 1. Left perineal abscess/phlegmon extending up to 6.8 cm long. Surrounding abnormal soft tissue wall and fat stranding extends towards the anus. No finding s to suggest perirectal abscess. 2. Hepatomegaly. Hep atic steatosis. 3. Scattered sigmoid colonic diverticula. Electronically francois d by: Yasmani Gaming MD 03/05/2025 09:53 AM EDT Dictated By: Yasmani Gaming MD Signed By: <Electronically signed by Yasmani Gaming MD in OV> 03/05/25 0953 DD/ 0836 TD/TT: 03/05/25 0900 Brick[facility]ason: Complete Blood Count no Diff Reviewed date:03/08/2025 05:05:12 AM Interpretation: Performing Lab:[facility], [address] [place] [phone] Notes/Report: White Blood Count 11.8 4.8-10.8 X10*3/uL Red Blood Count 4.01 4.20-5.50 X10*6/uL Hemoglobin 11.3 12.0-16.0 g/dl Hematocrit 34.7 37.0-47.0 % Mean Corpuscular Volume 86.5 80.0-98.0 fL Mean Corpuscular Hemoglobin 28.2 27.0-33.0 pg Mean Corpuscular HGB Conc 32.6 31.0-35.0 g/dl Red Cell Distribution Width 13.7 11.0-16.0 % Platelet Count 265 160-400 X10*3/uL Mean Platelet Volume 9.8 9.4-12.3 fL NRBC Pct Auto 0.0 0.0-0.2 /100WBC NRBC Abs Auto 0.000 0.0-0.012 X10*3/uL Basic Metabolic Panel Reviewed date:03/08/2025 05:05:12 AM Interpretation: Performing Lab:[facility], [address] [place] [phone] Notes/Report: Sodium 144 135-145 mmol/L Potassium 3.7 3.3-5.1 mmol/L Chloride 105 96-108 mmol/L Carbon Dioxide 27 22-29 mmol/L Test was veri fied by repeat analysis. Anion Gap 16 12-20 Blood Urea Nitrogen 10 9-16 mg/dL Creatinine 0.72 0.5-1.4 mg/dL Creatinine Clr Calc Pharmacy 133.1 Provided height and weight: 165.1 cm, 132.8 kg. eGFR (calculated from the MDRD study equation) and eCrCl (calculated from the Cockcroft-Gault equation) are based on different parameters and may not yield comparable results. If eCrCl result is absurd, please check patient's height/weight. Estimated Glomerular Filt Rate > 60 Chronic Kidney Disease: Estimated GFR < 60 mL/min/1.73m2 Severe Kidney Disease: Estimated GFR < 15 mL/min/1.73m2 Glucose Random 110 60-115 mg/dL Calcium 9.4 8.4-10.2 mg/dL Vancomycin Trough Reviewed date:03/08/2025 05:05:12 AM Interpretation: Performing Lab:[facility], [address] [place] [phone] Notes/Report: Vancomycin Trough 9.5 10.0-20.0 mcg/mL Complete Blood Count Auto Di ff Reviewed date:03/08/2025 05:05:12 AM Interpretation: Performing Lab:[facility], [address] [place] [phone] Notes/Report: White Blood Count 9.7 4.8-10.8 X10*3/uL Red Blood Count 4.04 4.20-5.50 X10*6/uL Hemoglobin 11.4 12.0-16.0 g/dl Hematocrit 34.3 37.0-47.0 % Mean Corpuscular Volume 84.9 80.0-98.0 fL Mean Corpuscular Hemoglobin 28.2 27.0-33.0 pg Mean Corpuscular HGB Conc 33.2 31.0-35.0 g/dl Red Cell Distribution Width 13.4 11.0-16.0 % Platelet Count 312 160-400 X10*3/uL Mean Platelet Volume 9.6 9.4-12.3 fL Neutrophils Percent Auto 66.0 45-73 % Imm Gran Pct Auto 1.3 0.0-0.4 % Lymphocytes Percent Auto 21.0 20-40 % Monocytes Percent Auto 7.2 2-11 % Eosinophils Percent Auto 4.2 0-4 % Basophils Percent Auto 0.3 0-2 % NRBC Pct Auto 0.0 0.0-0.2 /100WBC Neutrophils Absolute Auto 6.4 2.0-8.3 x10*3/uL Imm Gran Abs Auto 0.13 0.00-0.03 X10*3/uL Lymphocytes Absolute Auto 2.0 1.2-4.9 X10*3/uL Monocytes Absolute Auto 0.7 0.1-1.2 X10*3/uL Eosinophils Absolute Auto 0.4 0.0-0.4 X10*3/uL Basophils Absolute Auto 0.0 0.0-0.2 X10*3/uL NRBC Abs Auto 0.000 0.0-0.012 X10*3/uL Creatinine Reviewed date:03/08/2025 05:05:12 AM Interpretation: Performing Lab:[facility], [address] [place] [phone] Notes/Report: Creatinine 0.71 0.5-1.4 mg/dL Creatinine Clr Calc Pharmacy 135.0 Provided height and weight: 165.1 cm, 132.8 kg. eGFR (calculated from the MDRD study equation) and eCrCl (calculated from the Cockcroft-Gault equation) are based on different parameters and may not yield comparable results. If eCrCl result is absurd, please check patient's height/weight. Estimated Glomerular Filt Rate > 60 Chronic Kidney Disease: Estimated GFR < 60 mL/min/1.73m2 Severe Kidney Disease: Estimated GFR < 15 mL/min/1.73m2 Reason For Referral Reason Urgent Appointment R equest Consult and Treat Diagnosis 1 Anal abscess (K61.0) Referral Organization Bhanu Armendariz III, MD Referring Provider First Name Bhanu Referring Provider Last Name Marcello Referring Provider Speciality Internal M edicine Referred Provider Anam Wallis Referred Provider Specialty General Surg domo General Notes Etta Pa 03/20/2025 03:31:40 PM > Per patient the issue has resolved and no longer needs this referral. Stated she was treated in the hospital Referral Priority Urgent Medications Medication SIG (Take, Route, Frequency, Duration) Notes Start Date End Date Status Sertraline HCl 100 MG 2 tablet Orally at bedtime Active oxyBUTYnin Chloride 5 MG 1 tablet Orally Twice a day Active hydrALAZINE HCl 10 MG TAKE 2 TABLETS BY MOUTH FOUR TIMES A DAY 90 DAYS Active metroNIDAZOLE 500 MG 1 tablet Orally Thr ee times a day 05/02/2021 Active Metoprolol Succinate ER 50 MG TAKE 1 TABLET BY MOUTH TWICE A DAY Active Anastrozole 1 MG 1 tablet Orally Once a day Active Zepbound 7.5 MG/0.5ML 0.5 mL Subcutaneou s once a week 03/04/2025 Active diazePAM 5 MG 1 tablet as needed O rally every 8 hours x 3 prior to surgery 06/24/2019 Active Amoxicillin-Pot Clavulanate 875-125 MG Oral Activ e Atorvastatin Calcium 10 MG TAKE 1 TABLET BY MOUTH EVERY DAY for 90 Active Multi Vitamin Active Zoloft 100 MG 1 tablet Orally Once a day Active Lupron Depot (1-Month) 7.5 MG as directed Intramuscular Ac tive Doxepin HCl 6 MG 1 tablet at bedtime Orally Once a day Active ARIPiprazole 5 MG 1 tablet Orally Once a day Active Immunizations Vaccine Route Administration Date Status Comme nts PPD (Planted) ID Intradermal 09/07/2014 Administered Influenza, quad IM Intramuscular 05/06/2021 Administered Tdap Unknown 11/27/2013 Administered COVID- 19 Vaccine Unknown 09/29/2020 Administered COVID- 19 Vaccine Unknown 10/27/2020 Administered COVID- 19 Vaccine Unknown 05/30/2021 Administered Influenza no Preserv 3 and > Unknown 04/20/2016 Administered Influenza no Preserv 3 and > Unknown 04/20/2015 Administered Influenza, quad IM Intramuscular 05/01/2022 Administered Influenza, quad IM Intramuscular 08/17/2023 Administered Social History Tobacco Use: Social History Observation [...] Problem Status W/U Status Risk Notes Problem 3164129 Former smoker (Z87.891) Active confirmed She has a strategy mapped out to prevent relapse in times of stress and illness. Problem 815099842 Anemia (D64.9) Active confirmed There was no evidence for hemolysis today. Problem Acquired hemolytic anemia (7409092) Acquired hemolytic anemia, unspecified (D59.9) Active confirmed She is not jaundiced. She does not appear anemic. Comprehensive blood work has been ordered. This problem has not relapsed. Problem 932232902 Mixed hyperlipidemia (E78.2) Active confirmed We will returned to normal surveillance. Comprehensive blood work with fasting lipids will be obtained periodically. Problem 713804343 Acquired hypothyroidism (E03.9) Active confirmed She was continued on current therapy. Blood work will be done in detail in the near future at the weight loss program at [facility]. Problem 28956046 Essential hypertension (I10) Active confirmed Her blood pressure was in the normal range today at 128/80. No change in regimen was needed. I recommended sodium restriction and aggressive weight loss with regular exercise. Problem 69133420 Obstructive sleep apnea (G47.33) Active confirmed Problem 818990567 Invasive ductal carcinoma of right breast (C50.911) Active confirmed Her adjuvant endocrine therapy was continued. There is no sign of relapse at this time. There is no sign of a new primary. She has been compliant with her therapy and appointments. She was soon complete her fifth year of adjuvant endocrine therapy.She is taking anastrozole 1 mg daily. Problem 483493245 Factor V Leiden mutation (D68.51) Active confirmed She has had no episodes of blood clotting. Her father has a Leiden mutation and one episode of clotting. Problem 810635342 Morbid obesity (E66.01) Active confirmed I will continue my aggressive attempts to help her lose weight. Problem 25837133 Perianal abscess (K61.0) Active confirmed She has completed the antibiotic. The pain and erythema resolved and the palpable abnormality is no longer there. Vital Signs Heart Rate 80 /min 03/20/2025 Temperature 97.3 degrees Fahrenheit 03/20/2025 Blood pressure diastolic 80 mm Hg 03/20/2025 Height 66 in 03/20/2025 Blood pressure systolic 134 mm Hg 03/20/2025 Weight 289 lbs 03/20/2025 BMI 46.64 kg/m2 03/20/2025 Encounters Encounter Location Date Provider Diagnosis Bhanu Armendariz III, MD [address] [place] [address] [place] [phone] 08/11/2024 Bhanu Armendariz Invasive ductal carcinoma of right breast C50.911 ; Mixed hyperlipidemia E78.2 ; Morbid obesity E66.01 ; Factor V Leiden mutation D68.51 ; Former smoker Z87.891 ; Acquired hypothyroidism E03.9 and Obstructive sleep apnea G47.33 Bhanu Armendariz III, MD [address] [place] [address] [place] [phone] 03/04/2025 Bhanu Armendariz Invasive ductal carcinoma of right breast C50.911 ; Morbid obesity E66.01 ; Former smoker Z87.891 ; Factor V Leiden mutation D68.51 ; Acquired hypothyroidism E03.9 and Perianal abscess K61.0 Bhanu Armendariz III, MD [address] [place] [address] [place] [id number] 03/11/2025 Bhanu Armendariz Invasive ductal carcinoma of right breast C50.911 ; Perianal abscess K61.0 ; Factor V Leiden mutation D68.51 ; Former smoker Z87.891 ; Acquired hypothyroidism E03.9 ; Mixed hyperlipidemia E78.2 ; Obstructive sleep apnea G47.33 and Acquired hemolytic anemia, unspecified D59.9 Bhanu Armendariz III, MD [address] [place] [address] [place] [id number] 03/20/2025 Bhanu Armendariz Invasive ductal carcinoma of right breast C50.911 ; Perianal abscess K61.0 ; Anemia D64.9 ; Mixed hyperlipidemia E78.2 ; Morbid obesity E66.01 ; Former smoker Z87.891 and Factor V Leiden mutation D68.51 Bhanu Armendariz III, MD [address] [place] [address] [place] [id number] 12/17/2024 Bhanu Armendariz III, MD [address] [place] [address] [place] [id number] 03/05/2025 Bhanu Armendariz III, MD [address] [place] [address] [place] [id number] 03/06/2025 Bhanu Armendariz Assessments Encounter Date Diagnosis (ICD Code) Assessment Notes Treat ment Notes Treatment Clinical Notes 08/11/2024 Mixed hyperlipidemia (ICD-10 - E78.2) Current medication was continued. Comprehensive blood work was ordered which will continue. A fasting lipid profile. She is asymptomatic. 08/11/2024 Invasive ductal carcinoma of right breast (ICD-10 - C50.911) Her adjuvant endocrine therapy was continued. There is no sign of relapse at this time. There is no sign of a new primary. She has been compliant with her therapy and appointments. She was soon complete her fifth year of adjuvant endocrine therapy.She is taking anastrozole 1 mg daily. 03/04/2025 Invasive ductal carcinoma of right breast [...] continue. She is having no side effects. 03/11/2025 Invasive ductal carcinoma of right breast [...] be at the end of next week. 03/20/2025 Invasive ductal carcinoma of right breast [...] the palpable abnormality is no longer there. 08/11/2024 Morbid obesity (ICD-10 - E66.01) She has lost 5 wounds. Her medication was continued at the current dose. Monthly followup will continue. She is having no side effects. 03/04/2025 Former smoker (ICD-1 0 - Z87.891) She has a strategy mapped out to prevent relapse in times of stress and illness. 03/11/2025 Factor V Leiden mutation (ICD-10 - D68.51) She has had no episodes of blood clotting. Her father has a Leiden mutation and one episode of clotting. 03/20/2025 Anemia (ICD-10 - D64.9) There was no evidence for hemolysis today. 08/11/2024 Factor V Leiden mutation (ICD-10 - D68.51) She has had no episodes of blood clotting. Her father has a Leiden mutation and one episode of clotting. 03/04/2025 Factor V Leiden mutation (ICD-10 - D68.51) She has had no episodes of blood clotting. Her father has a Leiden mutation and one episode of clotting. 03/11/2025 Former smoker (ICD-1 0 - Z87.891) She has a strategy mapped out to prevent relapse in times of stress and illness. 03/20/2025 Mixed hyperlipidemia (ICD-10 - E78.2) We will returned to normal surveillance. Comprehensive blood work with fasting lipids will be obtained periodically. 08/11/2024 Former smoker (ICD-1 0 - Z87.891) She has a strategy mapped out to prevent relapse in times of stress and illness. 03/04/2025 Acquired hypothyroidism (ICD-10 - E03.9) She was continued on current therapy. Blood work will be done in detail in the near future at the weight loss program at [facility]. 03/11/2025 Acquired hypothyroidism (ICD-10 - E03.9) She was continued on current therapy. Blood work will be done in detail in the near future at the weight loss program at [facility]. 03/20/2025 Morbid obesity (ICD-10 - E66.01) I will continue my aggressive attempts to help her lose weight. 08/11/2024 Acquired hypothyroidism (ICD-10 - E03.9) She was continued on current therapy. Blood work will be done in detail in the near future at the weight loss program at [facility]. 03/04/2025 Perianal abscess (ICD-10 - K61.0) This is an acute finding was symptoms present for a week. She was referred to the emergency room. 03/11/2025 Mixed hyperlipidemia (ICD-10 - E78.2) Current medication was continued. Comprehensive blood work was ordered which will continue. A fasting lipid profile. She is asymptomatic. 03/20/2025 Former smoker (ICD-1 0 - Z87.891) She has a strategy mapped out to prevent relapse in times of stress and illness. 08/11/2024 Obstructive sleep apnea (ICD-10 - G47.33) 03/11/2025 Obstructive sleep apnea (ICD-10 - G47.33) 03/20/2025 Factor V Leiden mutation (ICD-10 - D68.51) She has had no episodes of blood clotting. Her father has a Leiden mutation and one episode of clotting. 03/11/2025 Acquired hemolytic anemia, unspecified (ICD-10 - D59.9) She is not jaundiced. She does not appear anemic. Comprehensive blood work has been ordered. This problem has not relapsed. Plan Of Treatment Pending Test Test Name Order Date PROFILE, FASTING (COMPREHENSIVE METABOLI C) 03/07/2021 PROFILE, FASTING (COMPREHENSIVE METABOLI C) 08/14/2022 PROFILE, FASTING (COMPREHENSIVE METABOLI C) 03/20/2025 PROFILE, FASTING (COMPREHENSIVE METABOLI C) 12/03/2020 PROFILE, FASTING (COMPREHENSIVE METABOLI C) 05/01/2022 PROFILE, FASTING (COMPREHENSIVE METABOLI C) 01/01/2019 PROFILE, FASTING (COMPREHENSIVE METABOLI C) 03/03/2024 PROFILE, FASTING (COMPREHENSIVE METABOLI C) 08/11/2024 PROFILE, FASTING (COMPREHENSIVE METABOLI C) 08/29/2021 PROFILE, FASTING (COMPREHENSIVE METABOLI C) 11/19/2018 PROFILE, RANDOM (COMPREHENSIVE METABOLIC ) 08/17/2023 PROFILE, RANDOM (COMPREHENSIVE METABOLIC ) 09/06/2016 PROFILE, RANDOM (COMPREHENSIVE METABOLIC ) 02/10/2020 LIPID PANEL 11/19/2018 LIPID PANEL 03/07/2021 LIPID PANEL 08/14/2022 LIPID PANEL 12/03/2020 LIPID PANEL 05/01/2022 LIPID PANEL 01/01/2019 LDH 02/10/2020 FREE T4 (FT4) 08/17/2023 FREE T4 (FT4) 08/14/2022 FREE T4 (FT4) 03/03/2024 FREE T4 (FT4) 01/01/2019 TSH (THYROID STIMULATING HORMONE) 2022 TSH (THYROID STIMULATING HORMONE) 2023 TSH (THYROID STIMULATING HORMONE) 2018 FERRITIN 01/01/2019 FERRITIN 09/06/2016 FERRITIN 02/10/2020 CBC w DIFF 02/10/2020 CBC w DIFF 11/19/2018 CBC w DIFF 01/01/2019 CBC w DIFF 03/07/2021 CBC w DIFF 03/20/2025 CBC w DIFF 09/06/2016 CBC w DIFF 12/03/2020 CBC w DIFF 05/01/2022 CBC w DIFF 08/14/2022 CBC w DIFF 08/29/2021 XR KNEE RT 4 VIEWS 03/07/2021 US BREAST BIOPSY CORE GUIDE 01/10/2019 VITAMIN D 25-OH TOTAL 05/01/2022 CBC WITH AUTO DIFF 03/03/2024 CBC WITH AUTO DIFF 08/17/2023 CBC WITH AUTO DIFF 08/11/2024 Ferritin 03/03/2024 Ferritin 12/03/2020 Lipid Panel 08/11/2024 Lipid Panel 08/29/2021 Lipid Panel 03/03/2024 Lipid Panel 03/20/2025 Next Appt Details Provider Name:Bhanu Chivo Armendariz , 06/26/2025 04:00:00 PM, [address] [place] [address] [address], [place], [id number], Provider Name:Bhanu Armendariz , 03/08/2026 02:00:00 PM, [address] [place] [address] [address], [place], [address], Insurance Providers Payer Name Payer Address Payer Phone Subscriber Number Group Number Insured Name Patient Relationship to Insured Coverage Start Date Coverage End Date [facility] [address] [facility] [address] [place] [phone] [id number] Alexa Beauchamp Self - patient is the insured Medical (General) History Medical History History ICD Code splenomegaly ovarian mass migraines autoimmune hemolytic anemia heterozygous factor V Leiden 07/03 stage IER+NC+Hpp-ixlg-zfueqkvy xochitl 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
[2025-06-23 07:32] LABS: MANUAL DIFF FLAG NO
[2025-06-23 08:00] LABS: Hematocrit 42.0 % (37.0-47.0); Hemoglobin 14.1 g/dl (12.0-16.0); Imm Gran Abs Auto 0.07 X10*3/uL (0.00-0.03); Imm Gran Pct Auto 0.6 % (0.0-0.4); Lymphocytes Absolute Auto 2.4 X10*3/uL (1.2-4.9); Mean Corpuscular HGB Conc 33.6 g/dl (31.0-35.0); Mean Corpuscular Hemoglobin 28.4 pg (27.0-33.0); Mean Corpuscular Volume 84.5 fL (80.0-98.0); NRBC Abs Auto 0.000 X10*3/uL (0.0-0.012); NRBC Pct Auto 0.0 /100WBC (0.0-0.2); Platelet Count 307 X10*3/uL (160-400); Red Blood Count 4.97 X10*6/uL (4.20-5.50); White Blood Count 12.1 X10*3/uL (4.8-10.8)
[2025-06-23 08:32] LABS: Alanine Aminotransferase 42 U/L (0-31); Albumin Level 4.3 g/dL (3.5-5.0); Alkaline Phosphatase 98 U/L (39-117); Anion Gap 16 (12-20); Aspartate Amino Transferase 55 U/L (5-31); Blood Urea Nitrogen 13 mg/dL (9-16); Calcium 9.8 mg/dL (8.4-10.2); Carbon Dioxide 25 mmol/L (22-29); Chloride 105 mmol/L (96-108); Cholesterol 210 mg/dL (<200); Estimated Glomerular Filt Rate > 60; HDL Cholesterol 50 mg/dL (>40); Potassium 4.1 mmol/L (3.3-5.1); Sodium 142 mmol/L (135-145); Total Protein 7.1 g/dL (6.5-8.0); Triglycerides 340 mg/dL (<150)
== END 2025-06-23 07:21 | disposition home or self-care (01) ==
LOC: HO.LAB 07:20
PROVIDERS: PCP Internal Medicine Medical Oncology; Visit Provider Internal Medicine Medical Oncology
DX: E78.2 Mixed hyperlipidemia (principal); D64.9 Anemia, unspecified; E66.01 Morbid (severe) obesity due to excess calories
CPT/HCPCS: 36415; 80053; 80061; 85025

== ENCOUNTER 2025-06-26 06:07 | Emergency (ER) | payer OTHER, SELFPAY ==
--- OUTSIDE RECORDS SUMMARY | 2024-11-24 04:00 | XMS_ITS ---
Author Organization [facility] Address [address] [place] [address] Care Team Providers Care Concaver Name Role Phone Marcello WILSON, Bhanu Primary Care Provider Unavailab blanca Tian Mia Ross [phone] Encounters Encounter Location Date Provider Diagnosis [address] [address] 11/24/2024 Mia Tain Plan Of Treatment Next Appt Details Provider Name:Mia Tian , 07/23/2025 08:00:00 AM, [address] [place], [address], Progress Notes * Alexa ROSSDOB:[birth year] (49 yo F)Acc No.[id number]:11/24/2024 Progress Note Patient: Alexa LEMUS Provider: Dandre Tian DPM :1975 A ge:49 Y S ex:Female Date:11/24/2024 Address:[facility] [address] [place] Pcp:Bhanu Armendariz MD Subjective: * Chief Complaints: * * Medical History: Objective: * Vitals: Assessment: Plan: * Treatment: * Images: * The named appointment provid er may or may not be the originator of this progress note, and it is not deemed complete until electronically signed by the appointment provider. Sign off status: Pending * Provider: Dandre Tian, TONE Date: 0 11/24/2024 Generated for Beny clahoun/Micki/Jaleesa on: 1 08/27/2024 06:55 AM EST
--- OUTSIDE RECORDS SUMMARY | 2024-12-01 03:00 | XMS_ITS ---
Author Organization [facility] Address [address] [place] [address] Care Team Providers Care Drug Safety Physician Name Role Phone Marcello WILSON, Bhanu Primary Care Provider Unavailab blanca Tian Mia Unavailable [phone] Inman Encounters Encounter Location Date Provider Diagnosis [address] [address] 12/01/2024 Mia Tian Plan Of Treatment Next Appt Details Provider Name:Mia Tian , 07/23/2025 08:00:00 AM, [address] [place] [address], [address], Progress Notes * Alexa ROSSDOB:[birth year] (49 yo F)Acc No.[id number]:12/01/2024 Progress Note Patient: Pardeep Alexa MERCHANT Provider: Dandre Tian DPM :1975 A ge:49 Y S ex:Female Date:12/01/2024 Address:[facility] [address] [id number] Pcp:Bhanu Armendariz MD Subjective: * Chief Complaints: [...] DPM Date: 0 12/01/2024 Generated for Beny calhoun/Micki/Jaleesa on: 1 08/27/2024 06:53 AM EST
--- OUTSIDE RECORDS SUMMARY | 2024-12-17 08:39 | XMS_ITS ---
Author Organization Bhanu Armendariz III, MD Address [address] [place] [address] Care Team Providers Care Vending Stand Supervisor Name Role Phone Bhanu Armendariz III, MD Primary Care Provider Dr. Bhanu Armendariz III [facility] REASON FOR VISIT Zepbound denial from [facility] Social History Sex Assigned At : Social History Observation Description Sex Assigned At Female Encounters Encounter Location Date Provider Diagnosis Bhanu Armendariz III, MD [address] [place] [address] [place] [address] 12/17/2024 Bhanu Armendariz Plan Of Treatment Next Appt Details Provider Name:Bhanu Armendariz , 07/02/2025 10:15:00 AM, [address] [place] [address] [place], [address], Provider Name:Bhanu Armendariz , 03/08/2026 02:00:00 PM, [address] [place] [address] [place], [address], Progress Notes * Alexa ROSSDOB:[birth year] (49 yo F)Acc No.[id number]:12/17/2024 Patient: Pardeep MAYUR Alexa :1975 A ge:49 Y S ex:Female Address:[address] [place] [address] * true * Date: Generated for Beny calhoun/Micki/Jaleesa on: 1 08/27/2024 06:53 AM EST
--- OUTSIDE RECORDS SUMMARY | 2025-03-04 09:00 | XMS_ITS ---
Author Organization Bhanu Armendariz III, MD Address [address] [place] [address] Care Team Providers Care Mock Up Builder Name Role Phone Bhanu Armendariz III, MD Primary Care Provider Dr. Bhanu Armendariz III [facility] Allergies Allergen (clinical drug ingredient) Drug/Non [...] Problem Status W/U Status Risk Notes Problem [id number] Perianal abscess (K61.0) Active confirmed There is a recurrent abscess under the skin which is palpable in the gluteal fold under the left buttock. This is a recurrence of her previous infection that required incision and drainage. She has been sent to the emergency room. Vital Signs Temperature 97.7 degrees Fahrenheit 03/04/20 25 Blood pressure systolic 107 mm Hg 03/04/20 25 Blood pressure diastolic 79 mm Hg 025 Heart Rate 97 /min 03/04/2025 Height 66 in 03/04/2025 Weight 287 lbs 03/04/2025 BMI 46.32 kg/m2 03/04/2025 Encounters Encounter Location Date Provider Diagnosis Bhanu Armendariz III, MD [address] [place] [address] [address] [place], [place] [id number] 03/04/2025 Bhanu Armendariz Invasive ductal carcinoma of [...] future at the weight loss program at [facility]. 03/04/2025 Perianal abscess (ICD-10 - K61.0) [...] A ppointment Request Consult and Treat, Anam Wallis Next Appt Details Follow Up: 2 - 3 Days, Chio n: Telehealth Provider Name:Bhanu Armendariz , 07/02/2025 10:15:00 AM, [address] [place] [address] [address], [place], [address], Provider Name:Bhanu Villalobosrne , 03/08/2026 02:00:00 PM, [address] [place] [address] [address], [place], [address], Progress Notes * Alexa ROSSDOB:[birth year] (49 yo F)Acc No.[id number]:03/04/2025 Progress Notes Patient: Alexa LEMUS Provider: Janee Armendariz MD :1975 A ge:49 Y S ex:Female Date:03/04/2025 Address:[facility], [facility], [id number] Pcp:Bhanu Armendariz III, MD Subjective: * Chief [...] nterpretation N egative S he was born [place], [place] and is single. 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 Smoking: No history of smoking. * Medications: [...] future at the weight loss program at [facility]. 6 . P erianal abscess - [...] Armendariz MD Date: 0 03/04/2025 Generated for Beny calhoun/Micki/eTransmitting on: 1 08/27/2024 06:55 AM EST History and Physical Notes * [...]
--- OUTSIDE RECORDS SUMMARY | 2025-03-05 07:22 | XMS_ITS ---
Author Organization Bhanu Armendariz III, MD Address [address] [place] [address] [place] [address] Care Team Providers Care Special Education Tutor Name Role Phone Bhanu Armendariz III, MD Primary Care Provider [phone] Dr. Bhanu Armendariz III [facility] REASON FOR VISIT FYI Social History Sex Assigned At : Social History Observation Description Sex Assigned At Female Encounters Encounter Location Date Provider Diagnosis Bhanu Armendariz III, MD [address] [place] [address] [place] [address] 03/05/2025 Bhanu Armendariz Plan Of Treatment Next Appt Details Provider Name:Bhanu Armendariz , 07/02/2025 10:15:00 AM, [address] [place] [address] [facility] [place] [facility] [place], [address], Provider Name:Bhanu Armendariz , 03/08/2026 02:00:00 PM, [address] [place] [address] [place], [address], Progress Notes * Alexa ROSSDOB:[birth year] (49 yo F)Acc No.[id number]:03/05/2025 Patient: Alexa LEMUS :1975 A ge:49 Y S ex:Female Address:[address] [place] [address] * true * Date: Generated for Printi ng/Faxing/eTransmitting on: 1 08/27/2024 06:56 AM EST
--- OUTSIDE RECORDS SUMMARY | 2025-03-06 04:07 | XMS_ITS ---
Author Organization Bhanu Armendariz III, MD Address [address] [place] [address] [place] [address] Care Team Providers Care Resident Physician Name Role Phone Bhanu Armendariz III, MD Primary Care Provider Dr. Bhanu Armendariz III [facility] REASON FOR VISIT FYI Social History Sex Assigned At : Social History Observation Description Sex Assigned At Female Encounters Encounter Location Date Provider Diagnosis Bhanu Armendariz III, MD [address] [place] [address] [place] [id number] 03/06/2025 Bhanu Armendariz Plan Of Treatment Next Appt Details Provider Name:Bhanu Armendariz , 07/02/2025 10:15:00 AM, [address] [place] [address] [place] [facility] [place], [address], Provider Name:Bhanu Armendariz , 03/08/2026 02:00:00 PM, [address] [place] [address] [place], [address], Progress Notes * Alexa ROSSDOB:[birth year] (49 yo F)Acc No.[id number]:03/06/2025 Patient: Pardeep Alexa MERCHANT :1975 A ge:49 Y S ex:Female Address:[address] [place] [address] * true * Date: Generated for Printi ng/Faxing/eTransmitting on: 1 08/27/2024 06:54 AM EST
--- OUTSIDE RECORDS SUMMARY | 2025-03-06 07:15 | XMS_ITS ---
Author Organization Bhanu Armendariz III, MD Address [address] [place] [address] [place] [address] Care Team Providers Care Research Methods Instructor Name Role Phone Bhanu Armendariz III, MD Primary Care Provider Dr. Bhanu Armendariz III [facility] REASON FOR VISIT Telehealth Social History Sex Assigned At : Social History Observation Description Sex Assigned At Female Encounters Encounter Location Date Provider Diagnosis Bhanu Armendariz III, MD [address] [place] [address] [address] [facility] [facility] [place] [address] 03/06/2025 Bhanu Armendariz Plan Of Treatment Next Appt Details Provider Name:Bhanu Armendariz , 07/02/2025 10:15:00 AM, [address] [place] [address] [place], [address], Provider Name:Bhanu Armendariz , 03/08/2026 02:00:00 PM, [address] [place] [address] [place], [address], Progress Notes * Alexa ROSSDOB:[birth year] (49 yo F)Acc No.[id number]:03/06/2025 Patient: Alexa LMEUS Provider: Janee Armendariz MD :1975 A ge:49 [...] 0 03/06/2025 Generated for Beny calhoun/Micki/Jaleesa on: 1 08/27/2024 06:54 AM EST
--- OUTSIDE RECORDS SUMMARY | 2025-03-11 04:00 | XMS_ITS ---
Author Organization Bhanu Armendariz III, MD Address [address] [place] [address] Care Team Providers Care Electronic Intelligence Officer Name Role Phone Bhanu Armendariz III, MD Primary Care Provider [phone] Dr. Bhanu Armendariz III [facility] Allergies [...] Date Provider Diagnosis Bhanu Armendariz III, MD [address] [place] [address] [facility] [place] [address] 03/11/2025 Bhanu Armendariz Invasive ductal carcinoma of [...] future at the weight loss program at [facility]. 03/11/2025 Mixed hyperlipidemia (ICD-10 - E78.2) Current [...] Reason: O V Provider Name:Bhanu Armendariz , 07/02/2025 10:15:00 AM, [address] [place] [address] [address], [place], [address], Provider Name:Bhanu Armendariz , 03/08/2026 02:00:00 PM, [address] [place] [address] [address], [place], [address], Progress Notes * Alexa ROSSDOB:[birth year] (49 yo F)Acc No.[id number]:03/11/2025 Patient: Alexa LEMUS Provider: Janee Armendariz MD :1975 A ge:49 Y S ex:Female Date:03/11/2025 Address[facility] [id number] Pcp:Bhanu Armendariz III, MD Subjective: * Chief [...] daily life including swimming.She was discharged in [facility] on March 07 2025. She will [...] E x-cigarette smoker S he was born [place], [place] and is single. 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 Smoking: No history of smoking. * Medications: [...] future at the weight loss program at [facility]. 6 . M ixed hyperlipidemia - E78.2 [...] 03/11/2025 Generated for Toddi lj/Micki/eTransmitting on: 1 08/27/2024 06:56 AM EST History and Physical Notes * [...]
--- OUTSIDE RECORDS SUMMARY | 2025-03-20 10:15 | XMS_ITS ---
Author Organization Bhanu Armendariz III, MD Address [address] [place] [address] Care Team Providers Care Spray Gun Repairer Name Role Phone Bhanu Armendariz III, MD Primary Care Provider Dr. Bhanu Armendariz III [facility] Allergies Allergen (clinical drug ingredient) Drug/Non Drug Allergy documented on EMR Reaction Allergy Type Onset Date Status No Known Drug Allergy Unknown Drug Allergy Active No Known Food Allergy Unknown Drug Allergy Active REASON FOR VISIT abscess left buttock, Factor V Leiden mutation, Hypothyroid, Ductal carcinoma right breast, Hypertension, History of hemolytic anemia, Morbid obesity Medications Medication SIG (Take, Route, Frequency, Duration) Notes Start Date End Date Status oxyBUTYnin Chloride 5 MG 1 tablet Orally Twice a day Active metroNIDAZOLE 500 MG 1 tablet Orally Thr ee times a day 05/02/2021 Active Anastrozole 1 MG 1 tablet Orally Once a day Active Zepbound 7.5 MG/0.5ML 0.5 mL Subcutaneou s once a week 03/04/2025 Active Amoxicillin-Pot Clavulanate 875-125 MG Oral Activ e Sertraline HCl 100 MG 2 tablet Orally at bedtime Active Doxepin HCl 6 MG 1 tablet at bedtime Orally Once a day Active ARIPiprazole 5 MG 1 tablet Orally Once a day Active diazePAM 5 MG 1 tablet as needed O rally every 8 hours x 3 prior to surgery 06/24/2019 Active Multi Vitamin Active Zoloft 100 MG 1 tablet Orally Once a day Active Lupron Depot (1-Month) 7.5 MG as directed Intramuscular Ac tive hydrALAZINE HCl 10 MG TAKE 2 TABLETS BY MOUTH FOUR TIMES A DAY 90 DAYS Active Metoprolol Succinate ER 50 MG TAKE 1 TABLET BY MOUTH TWICE A DAY Active Atorvastatin Calcium 10 MG TAKE 1 TABLET BY MOUTH EVERY DAY Active Social History Tobacco Use: Social History [...] non-user Ex-cigaret te smoker Vital Signs Temperature 97.3 degrees Fahrenheit 03/20/20 25 Blood pressure systolic 134 mm Hg 03/20/20 25 Blood pressure diastolic 80 mm Hg 025 Heart Rate 80 /min 03/20/2025 Height 66 in 03/20/2025 Weight 289 lbs 03/20/2025 BMI 46.64 kg/m2 03/20/2025 Encounters Encounter Location Date Provider Diagnosis Bhanu Armendariz III, MD [address] [place] [address] [facility] [address] 03/20/2025 Bhanu Armendariz Invasive ductal carcinoma of right breast C50.911 ; Perianal abscess K61.0 ; Anemia D64.9 ; Mixed hyperlipidemia E78.2 ; Morbid obesity E66.01 ; Former smoker Z87.891 and Factor V Leiden mutation D68.51 Assessments Encounter Date Diagnosis (ICD Code) Assessment Notes Treat ment Notes Treatment Clinical Notes 03/20/2025 Invasive ductal carcinoma of right breast (ICD-10 - C50.911) Her adjuvant endocrine therapy was continued. There is no sign of relapse at this time. There is no sign of a new primary. She has been compliant with her therapy and appointments. She was soon complete her fifth year of adjuvant endocrine therapy.She is taking anastrozole 1 mg daily. 03/20/2025 Perianal abscess (ICD-10 - K61.0) She has completed the antibiotic. The pain and erythema resolved and the palpable abnormality is no longer there. 03/20/2025 Anemia (ICD-10 - D64.9) There was no evidence for hemolysis today. 03/20/2025 Mixed hyperlipidemia (ICD-10 - E78.2) We will returned to normal surveillance. Comprehensive blood work with fasting lipids will be obtained periodically. 03/20/2025 Morbid obesity (ICD-10 - E66.01) I will continue my aggressive attempts to help her lose weight. 03/20/2025 Former smoker (ICD-1 0 - Z87.891) She has a strategy mapped out to prevent relapse in times of stress and illness. 03/20/2025 Factor V Leiden mutation (ICD-10 - D68.51) She has had no episodes of blood clotting. Her father has a Leiden mutation and one episode of clotting. Plan Of Treatment Medication Medication Name Sig Start Date Stop Date Notes oxyBUTYnin Chloride 5 MG 1 tablet Orally Twice a day metroNIDAZOLE 500 MG 1 tablet Orally Thr ee times a day 05/02/2021 Anastrozole 1 MG 1 tablet Orally Once a day Zepbound 7.5 MG/0.5ML 0.5 mL Subcutaneou s once a week 03/04/2025 Amoxicillin-Pot Clavulanate 875-125 MG Oral Sertraline HCl 100 MG 2 tablet Orally at bedtime Doxepin HCl 6 MG 1 tablet at bedtime Orally Once a day ARIPiprazole 5 MG 1 tablet Orally Once a day diazePAM 5 MG 1 tablet as needed O rally every 8 hours x 3 prior to surgery 06/24/2019 Multi Vitamin Zoloft 100 MG 1 tablet Orally Once a day Lupron Depot (1-Month) 7.5 MG as directed Intramuscular hydrALAZINE HCl 10 MG TAKE 2 TABLETS BY MOUTH FOUR TIMES A DAY 90 DAYS Metoprolol Succinate ER 50 MG TAKE 1 TAB LET BY MOUTH TWICE A DAY Atorvastatin Calcium 10 MG TAKE 1 TABLET BY MOUTH EVERY DAY Pending Test Test Name Order Date PROFILE, FASTING (COMPREHENSIVE METABOLI C) 03/20/2025 CBC w DIFF 03/20/2025 Lipid Panel 03/20/2025 Next Appt Details Follow Up: 2 Months, Reason: OV Provider Name:Bhanu Armendariz , 07/02/2025 10:15:00 AM, [address] [place] [address] [address], [place], [address], Provider Name:Bhanu Armendariz , 03/08/2026 02:00:00 PM, [address] [facility] [place]YES, [place], [address], Progress Notes * Angelia ROSS:10/19 (49 yo F)Acc No.[id number]:03/20/2025 Progress Notes Patient: Alexa LEMUS Provider: Janee Armendariz MD :1975 A ge:49 Y S ex:Female Date:03/20/2025 Address:[facility] [address] [facility], [id number] Pcp:Bhanu Armendariz III, MD Subjective: * Chief Complaints: * A bscess left buttockFactor V Leiden mutationHypothyroidDuctal carcinoma right breastHypertensionHistory of hemolytic anemiaMorbid obesity * HPI: C OVID-19 Screening: She is seen in continuing follow-up of the abscess in the left buttock. The skin has healed and there is no drainage. There is no pain or erythema. The abscess has resolved. She has completed her antibiotic. Her other medical problems are stable. She has returned to the activities of normal life.We will returned to normal surveillance. Questions H ave you had any new [...] enies. D iarrhea d enies. H eartburn d enies. N ausea d enies. R ectal bleeding [...] E x-cigarette smoker S he was born [place], [place] and is single. 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 Smoking: No history of smoking. * Medications: [...] Tablet 1 tablet Orally Twice a day Anastrozole 1 MG Tablet 1 [...] 1 tablet Orally Twice a day Taking Anastrozole 1 MG Tablet 1 tablet Orally Once a day DiscontinuedmetroNIDAZOLE 500 MG Tablet 1 tablet Orally Three times a day Zepbound 7.5 MG/0.5ML Solution Auto- injector 0.5 mL Subcutaneous once a week Amoxicillin-Pot Clavulanate 875-125 MG Tablet Oral Medication List reviewed and reconciled with the patientDiscontinued metroNIDAZOLE 500 MG Tablet 1 tablet Orally Three times a day Discontinued Zepbound 7.5 MG/0.5ML Solution Auto-injector 0.5 mL Subcutaneous once a week Discontinued Amoxicillin- Pot Clavulanate 875-125 MG Tablet Oral Medication List reviewed and reconciled with the patient * Allergies: N o Known Drug AllergyNo Known Food Allergyno[Allergies Verified] Objective: * Vitals: H t: 66, Wt: 289, BMI:46.64, BP: 134/80, HR: 80, Temp: 97.3, Wt-k.09. * Examination: G eneral Examination: GENERAL APPEARANCE: [...] organomegaly, no mass: morbid obesity. RECTAL EXAM: n ot examined. MUSCULOSKELETAL: e xtremities unremarkable, no clubbing, cyanosis or edema, Previous abscess left buttock is resolved. PERIPHERAL PULSES: n ormal. NEUROLOGIC: a lert and oriented, cranial nerves 2-12 grossly intact, deep tendon reflexes 2+ symmetrical, motor strength normal upper and lower extremities, sensory exam intact. PSYCH: a lert, oriented. Assessment: * Assessment: 1. P erianal abscess - K61.0 (Primary) N otes :She has completed the antibiotic. The pain and erythema resolved and the palpable abnormality is no longer there. 2 . I nvasive ductal carcinoma of [...] taking anastrozole 1 mg daily. 3 . A nemia - D64.9 N otes :There was no evidence for hemolysis today. 4 . M ixed hyperlipidemia - E78.2 N otes :We will returned to normal surveillance. Comprehensive blood work with fasting lipids will be obtained periodically. 5 . M orbid obesity - E66.01 N otes :I will continue my aggressive attempts to help her lose weight. 6 . F ormer smoker - Z87.891 N otes :She has a strategy mapped out to prevent relapse in times of stress and illness. 7 . F actor V Leiden mutation - D68.51 N otes :She has had no episodes of blood clotting. Her father has a Leiden mutation and one episode of clotting. Plan: * Treatment: 2. I nvasive ductal [...] 0.5 mL, Subcutaneous, once a week. 3. A nemia L AB: PROFILE, FASTING (COMPREHENSIVE METABOLIC) L AB: CBC w DIFF L AB: Lipid Panel 4. M ixed hyperlipidemia L AB: PROFILE, FASTING (COMPREHENSIVE METABOLIC) L AB: CBC w DIFF L AB: Lipid Panel 5. M orbid obesity L AB: PROFILE, FASTING (COMPREHENSIVE METABOLIC) L AB: CBC w DIFF L AB: Lipid Panel 6. O thers Continue hydrALAZINE HCl Tablet, 10 MG, TAKE 2 TABLETS BY MOUTH FOUR TIMES A DAY 90 DAYS; C ontinue Metoprolol Succinate ER Tablet Extended Release 24 Hour, 50 MG, TAKE 1 TABLET BY MOUTH TWICE A DAY; C ontinue Atorvastatin Calcium Tablet, 10 MG, TAKE 1 TABLET BY MOUTH EVERY DAY. * Procedure Codes: * Preventive Medicine: Counseling: [...] tobacco use and urged to quit. 0 03/20/2025 * Follow Up: 2 Months (Reason: OV) * Images: * Sign off status: Completed true * Provider: Janee Armendariz MD Date: 0 03/20/2025 Generated for Beny calhoun/Micki/Jaleesa on: 1 08/27/2024 06:55 AM EST History [...] unremark able, no clubbing, cyanosis or edema, Previous abscess left buttock is resolved LYMPH NODES: no enlarged lymph no milly,spleen normal RECTAL EXAM: not examined PSYCH: alert, oriented ORAL CAVITY: normal, unremarkable
--- OUTSIDE RECORDS SUMMARY | 2025-06-19 11:45 | XMS_ITS ---
Author Organization Bhanu Armendariz III, MD Address [address] [place] [address] [address] [place] [address] Care Team Providers Care Manager Fashion Name Role Phone Bhanu Armendariz III, MD Primary Care Provider [phone] Dr. Bhanu Armendariz III [facility] [phone] REASON FOR VISIT Follow up Social History Sex Assigned At : Social History Observation Description Sex Assigned At Female Encounters Encounter Location Date Provider Diagnosis Bhanu Armendariz III, MD [address] [place] [address] [address] [place] [address] 06/19/2025 Bhanu Armendariz Plan Of Treatment Next Appt Details Provider Name:Bhanu Armendariz , 07/02/2025 10:15:00 AM, [address] [place] [address] [place], [address], Provider Name:Bhanu Armendariz , 03/08/2026 02:00:00 PM, [address] [place] [address] [place], [address], Progress Notes * Alexa ROSSDOB:[birth year] (49 yo F)Acc No.[id number]:06/19/2025 Progress Notes Patient: Pardeep SIMAlexa [place] Provider: Janee Armendariz MD :1975 A ge:49 Y S ex:Female Date:06/19/2025 Address:[address] , [id number] Pcp:Bhanu Armendariz III, MD Subjective: * Chief [...] Armendariz MD Date: 08/20/2024 Generated for Beny calhoun/Micki/Yesseniaransmitting on: 08/27/2024 06:53 AM EST
--- OUTSIDE RECORDS SUMMARY | 2025-06-24 10:00 | XMS_ITS ---
Author Organization Bhanu Armendariz III, MD Address [address] [place] [address] Care Team Providers Care Seam Feller Name Role Phone Bhanu Armendariz III, MD Primary Care Provider [phone] Dr. Bhanu Armendariz III [facility] Allergies Allergen (clinical drug ingredient) Drug/Non Drug Allergy documented on EMR Reaction Allergy Type Onset Date Status No Known Drug Allergy Unknown Drug Allergy Active No Known Food Allergy Unknown Drug Allergy Active REASON FOR VISIT Hypothyroid, Left buttocks abcsess, Factor V Leiden mutation, Morbid obesity, Invasive carcinoma), Obstructive sleep apnea, Hypertension, History of hemolytic anemia Medications Medication SIG (Take, Route, Frequency, Duration) Notes Start Date End Date Status metroNIDAZOLE 500 MG 1 tablet Orally Thr ee times a day 05/02/2021 Active oxyBUTYnin Chloride 5 MG 1 tablet Orally Twice a day Active Sertraline HCl 100 MG 2 tablet Orally at bedtime Active ARIPiprazole 5 MG 1 tablet Orally Once a day Active Doxepin HCl 6 MG 1 tablet at bedtime Orally Once a day Active diazePAM 5 MG 1 tablet as needed O rally every 8 hours x 3 prior to surgery 06/24/2019 Active Metoprolol Succinate ER 50 MG TAKE 1 TABLET BY MOUTH TWICE A DAY Active Lupron Depot (1-Month) 7.5 MG as directed Intramuscular Ac tive Zoloft 100 MG 1 tablet Orally Once a day Active Multi Vitamin Active Atorvastatin Calcium 10 MG TAKE 1 TABLET BY MOUTH EVERY DAY Active Amoxicillin-Pot Clavulanate 875-125 MG Oral Activ e Zepbound 7.5 MG/0.5ML 0.5 mL Subcutaneou s once a week 03/04/2025 Active hydrALAZINE HCl 10 MG TAKE 2 TABLETS BY MOUTH FOUR TIMES A DAY 90 DAYS Active Anastrozole 1 MG 1 tablet Orally [...] Additional Findings: Tobacco non-user Ex-cigaret te smoker Problems Problem Type SNOMED Code ICD Code Onset Dates Problem Status W/U Status Risk Notes Problem 68256358 Hyperglycemia (R73.9) Active confirmed Her fasting glucoses 152 in the context of an active abscess. Clearly she is prediabetic and likely has become diabetic. This value will be repeated with a hemoglobin A1c after the infection has resolved. If necessary she will be treated with a hypoglycemic agent. She is an excellent candidate for semaglutide. Vital Signs Temperature 97.3 degrees Fahrenheit 06/24/20 25 Blood pressure systolic 138 mm Hg 06/24/20 25 Blood pressure diastolic 83 mm Hg 025 Heart Rate 84 /min 06/24/2025 Height 66 in 06/24/2025 Weight 298 lbs 06/24/2025 BMI 48.09 kg/m2 06/24/2025 Encounters Encounter Location Date Provider Diagnosis Bhanu Armendariz III, MD [address] [place] [address] [place] [address] 06/24/2025 Bhanu Armendariz Invasive ductal carcinoma of right breast C50.911 ; Perianal abscess K61.0 ; Factor V Leiden mutation D68.51 ; Former smoker Z87.891 ; Acquired hypothyroidism E03.9 ; Mixed hyperlipidemia E78.2 ; Morbid obesity E66.01 ; Essential hypertension I10 ; Acquired hemolytic anemia, unspecified D59.9 ; Obstructive sleep apnea G47.33 and Hyperglycemia R73.9 Assessments Encounter Date Diagnosis (ICD Code) Assessment Notes Treat ment Notes Treatment Clinical Notes 06/24/2025 Invasive ductal carcinoma of right breast (ICD-10 - C50.911) Her adjuvant endocrine therapy was continued. There is no sign of relapse at this time. There is no sign of a new primary. She has been compliant with her therapy and appointments. She was soon complete her fifth year of adjuvant endocrine therapy.She is taking anastrozole 1 mg daily. 06/24/2025 Perianal abscess (ICD-10 - K61.0) There is a recurrent abscess under the skin which is palpable in the gluteal fold under the left buttock. This is a recurrence of her previous infection that required incision and drainage. She has been sent to the emergency room. 06/24/2025 Factor V Leiden mutation (ICD-10 - D68.51) She has had no episodes of blood clotting. Her father has a Leiden mutation and one episode of clotting. 06/24/2025 Former smoker (ICD-1 0 - Z87.891) She has a strategy mapped out to prevent relapse in times of stress and illness. 06/24/2025 Acquired hypothyroidism (ICD-10 - E03.9) She was continued on current therapy. Blood work will be done in detail in the near future at the weight loss program at [facility]. 06/24/2025 Mixed hyperlipidemia (ICD-10 - E78.2) Her recent fasting cholesterol has increased to 210. The triglycerides are 340. She has gained 9 pounds. We have discussed diet and nutrition at length today. These values will be repeated. 06/24/2025 Morbid obesity (ICD-10 - E66.01) She has gained 9 pounds. Her blood glucose is now 150 her cholesterol is 210 and her triglycerides are 340. Her liver function tests are slightly elevated which is likely steatosis. She is a good candidate for GLP-1 drug. I will continue to work with her try to have her enter a bariatric program. 06/24/2025 Essential hypertension (ICD-10 - I10) Her blood pressure was in the normal range today at 128/80. No change in regimen was needed. I recommended sodium restriction and aggressive weight loss with regular exercise. 06/24/2025 Acquired hemolytic anemia, unspecified (ICD-10 - D59.9) She is not jaundiced. She does not appear anemic. Comprehensive blood work has been ordered. This problem has not relapsed. 06/24/2025 Obstructive sleep apnea (ICD-10 - G47.33) She has a CPAP device which she has not been using as it is not comfortable. After the perianal abscess issue is resolved I will have her see the pulmonary foreign legal consultant to see if a better machine or mask can be provided. 06/24/2025 Hyperglycemia (ICD-1 0 - R73.9) Her fasting glucoses 152 in the context of an active abscess. Clearly she is prediabetic and likely has become diabetic. This value will be repeated with a hemoglobin A1c after the infection has resolved. If necessary she will be treated with a hypoglycemic agent. She is an excellent candidate for semaglutide. Plan Of Treatment Medication Medication Name Sig Start Date Stop Date Notes metroNIDAZOLE 500 MG 1 tablet Orally Thr ee times a day 05/02/2021 oxyBUTYnin Chloride 5 MG 1 tablet Orally Twice a day Sertraline HCl 100 MG 2 tablet Orally at bedtime ARIPiprazole 5 MG 1 tablet Orally Once a day Doxepin HCl 6 MG 1 tablet at bedtime Orally Once a day diazePAM 5 MG 1 tablet as needed O rally every 8 hours x 3 prior to surgery 06/24/2019 Metoprolol Succinate ER 50 MG TAKE 1 TAB LET BY MOUTH TWICE A DAY Lupron Depot (1-Month) 7.5 MG as directed Intramuscular Zoloft 100 MG 1 tablet Orally Once a day Multi Vitamin Atorvastatin Calcium 10 MG TAKE 1 TABLET BY MOUTH EVERY DAY Amoxicillin-Pot Clavulanate 875-125 MG Oral Zepbound 7.5 MG/0.5ML 0.5 mL Subcutaneou s once a week 03/04/2025 hydrALAZINE HCl 10 MG TAKE 2 TABLETS BY MOUTH FOUR TIMES A DAY 90 DAYS Anastrozole 1 MG 1 tablet Orally Once a day Next Appt Details Follow Up: 1 Week, Reason: O V Provider Name:Bhanu Armendariz , 07/02/2025 10:15:00 AM, [address] [place] [address] [address], [place], [address], Provider Name:Bhanu Armendariz , 03/08/2026 02:00:00 PM, [address] [place] [address] [address], [place], [address], Progress Notes * Alexa ROSSDOB:[birth year] (49 yo F)Acc No.[id number]:06/24/2025 Progress Notes Patient: Alexa LEMUS Provider: Janee Armendariz MD :1975 A ge:49 Y S ex:Female Date:06/24/2025 Address:[facility] [place] , [id number] Pcp:Bhanu Armendariz III, MD Subjective: * Chief Complaints: * H ypothyroidLeft buttocks abcsessFactor V Leiden mutationMorbid obesityInvasive carcinoma)Obstructive sleep apneaHypertensionHistory of hemolytic anemia * HPI: C OVID-19 Screening: Earlier this year she develops a left-sided abscess in the perianal region on the left buttock.? She was admitted to the hospital and given intravenous antibiotics. The abscess was drained. For the last 3 days she has had a recurrence of the hard swollen area under the skin of the lower left buttock. On palpation today the area measured about 5 cm. She was sent to the emergency room for imaging and surgical consultation and cultures. She has no other new problems. She has a CPAP machine at home for sleep apnea but she finds it difficult to use. She will need to revisit pulmonary to see if a more comfortable machine can be available. Questions H ave you had any new onset fever, chills, cough, congestion, sore throat, shortness of breath, muscle aches? N o * ROS: G eneral/Constitutional: pain R ecurrent infection left buttock. C hills d enies. F atigue a dmits. F ever d enies. E [...] a t night. M usculoskeletal: Muscle aches d enies. P ainful joints d enies. S ciatica d enies. W eakness d enies. S kin: Itching d enies. R tanmay d enies. S kin lesion(s)?abscess left lbuttock. N eurologic: Difficulty speaking d enies. D [...] E x-cigarette smoker S he was born [place], [place] and is single. 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 Smoking: No history of smoking. * Medications: T akinghydrALAZINE HCl 10 MG Tablet TAKE 2 TABLETS BY MOUTH FOUR TIMES A DAY 90 DAYS Metoprolol Succinate ER 50 MG Tablet Extended Release 24 Hour TAKE 1 TABLET BY MOUTH TWICE A DAY diazePAM 5 MG Tablet 1 tablet [...] Auto-injector 0.5 mL Subcutaneous once a week Amoxicillin-Pot Clavulanate 875-125 MG Tablet Oral Atorvastatin Calcium 10 MG Tablet TAKE 1 TABLET BY MOUTH EVERY DAY Medication List reviewed and reconciled with the patientTaking hydrALAZINE HCl 10 MG Tablet TAKE 2 TABLETS BY MOUTH FOUR TIMES A DAY 90 DAYS Taking Metoprolol Succinate ER 50 MG Tablet Extended Release 24 Hour TAKE 1 TABLET BY MOUTH TWICE A DAY Taking diazePAM 5 MG Tablet 1 [...] a day Taking Zepbound 7.5 MG/0.5ML Solution Auto- injector 0.5 mL Subcutaneous once a week Taking Amoxicillin-Pot Clavulanate 875-125 MG Tablet Oral Taking Atorvastatin Calcium 10 MG Tablet TAKE 1 TABLET BY MOUTH EVERY DAY Medication List reviewed and reconciled with the patient * Allergies: N o Known Drug AllergyNo Known Food Allergyno[Allergies Verified] Objective: * Vitals: H t: 66, Wt: 298, BMI:48.09, BP: 138/83, HR: 84, Temp: 97.3, Wt-k.17. * P ast Orders: Lab:Complete Blood Count Aut o Diff * Collection Date 06/23/2025 03/07/2025 05/05/2024 Collection Time 07:30 AM 05:48 AM 08:24 AM Order Date 06/23/2025 03/07/2025 05/05/2024 White Blood Count 12.1 H (Ref Range: 4.8-10.8 X10*3/uL) 9.7 (Ref Range: 4.8-10.8 X10*3/uL) 9.6 (Ref Range: 4.8-10.8 X10*3/uL) Red Blood Count 4.97 (Ref Range: 4.20-5.50 X10*6/uL) 4.04 L (Ref Range: 4.20-5.50 X10*6/uL) 4.95 (Ref Range: 4.20-5.50 X10*6/uL) Hemoglobin 14.1 (Ref Range: 12.0-16.0 g/dl) 11.4 L (Ref Range: 12.0-16.0 g/dl) 13.9 (Ref Range: 12.0-16.0 g/dl) Hematocrit 42.0 (Ref Range: 37.0-47.0 %) 34.3 L (Ref Range: 37.0-47.0 %) 42.4 (Ref Range: 37.0-47.0 %) Mean Corpuscular Volume 84.5 (Ref Range: 80.0-98.0 fL) 84.9 (Ref Range: 80.0-98.0 fL) 85.7 (Ref Range: 80.0-98.0 fL) Mean Corpuscular Hemoglobin 28.4 (Ref Range: 27.0-33.0 pg) 28.2 (Ref Range: 27.0-33.0 pg) 28.1 (Ref Range: 27.0-33.0 pg) Mean Corpuscular HGB Conc 33.6 (Ref Range: 31.0-35.0 g/dl) 33.2 (Ref Range: 31.0-35.0 g/dl) 32.8 (Ref Range: 31.0-35.0 g/dl) Red Cell Distribution Width 13.7 (Ref Range: 11.0-16.0 %) 13.4 (Ref Range: 11.0-16.0 %) 13.1 (Ref Range: 11.0-16.0 %) Platelet Count 307 (Ref Range: 160-400 X10*3/uL) 312 (Ref Range: 160-400 X10*3/uL) 325 (Ref Range: 160-400 X10*3/uL) Mean Platelet Volume 9.6 (Ref Range: 9.4-12.3 fL) 9.6 (Ref Range: 9.4-12.3 fL) 10.2 (Ref Range: 9.4-12.3 fL) Neutrophils Percent Auto 69.9 (Ref Range: 45-73 %) 66.0 (Ref Range: 45-73 %) 64.3 (Ref Range: 45-73 %) Imm Gran Pct Auto 0.6 H (Ref Range: 0.0-0.4 %) 1.3 H (Ref Range: 0.0-0.4 %) 0.4 (Ref Range: 0.0-0.4 %) Lymphocytes Percent Auto 20.0 (Ref Range: 20-40 %) 21.0 (Ref Range: 20-40 %) 26.9 (Ref Range: 20-40 %) Monocytes Percent Auto 5.9 (Ref Range: 2-11 %) 7.2 (Ref Range: 2-11 %) 4.6 (Ref Range: 2-11 %) Eosinophils Percent Auto 3.2 (Ref Range: 0-4 %) 4.2 H (Ref Range: 0-4 %) 3.4 (Ref Range: 0-4 %) Basophils Percent Auto 0.4 (Ref Range: 0-2 %) 0.3 (Ref Range: 0-2 %) 0.4 (Ref Range: 0-2 %) NRBC Pct Auto 0.0 (Ref Range: 0.0-0.2 /100WBC) 0.0 (Ref Range: 0.0-0.2 /100WBC) 0.0 (Ref Range: 0.0-0.2 /100WBC) Neutrophils Absolute Auto 8.4 H (Ref Range: 2.0-8.3 x10*3/uL) 6.4 (Ref Range: 2.0-8.3 x10*3/uL) 6.2 (Ref Range: 2.0-8.3 x10*3/uL) Imm Gran Abs Auto 0.07 H (Ref Range: 0.00-0.03 X10*3/uL) 0.13 H (Ref Range: 0.00-0.03 X10*3/uL) 0.04 H (Ref Range: 0.00-0.03 X10*3/uL) Lymphocytes Absolute Auto 2.4 (Ref Range: 1.2-4.9 X10*3/uL) 2.0 (Ref Range: 1.2-4.9 X10*3/uL) 2.6 (Ref Range: 1.2-4.9 X10*3/uL) Monocytes Absolute Auto 0.7 (Ref Range: 0.1-1.2 X10*3/uL) 0.7 (Ref Range: 0.1-1.2 X10*3/uL) 0.4 (Ref Range: 0.1-1.2 X10*3/uL) Eosinophils Absolute Auto 0.4 (Ref Range: 0.0-0.4 X10*3/uL) 0.4 (Ref Range: 0.0-0.4 X10*3/uL) 0.3 (Ref Range: 0.0-0.4 X10*3/uL) Basophils Absolute Auto 0.1 (Ref Range: 0.0-0.2 X10*3/uL) 0.0 (Ref Range: 0.0-0.2 X10*3/uL) 0.0 (Ref Range: 0.0-0.2 X10*3/uL) NRBC Abs Auto 0.000 (Ref Range: 0.0-0.012 X10*3/uL) 0.000 (Ref Range: 0.0-0.012 X10*3/uL) 0.000 (Ref Range: 0.0-0.012 X10*3/uL) * Lab:[facility] * Collection Date 06/23/2025 05/05/2024 04/25/2021 Collection Time 07:30 AM 08:24 AM 09:00 AM Order Date 06/23/2025 05/05/2024 04/25/2021 Sodium 142 (Ref Range: 135-145 mmol/L) 142 (Ref Range: 135-145 mmol/L) 140 (Ref Range: 135-145 mmol/L) Bilirubin Total 0.5 (Ref Range: 0.0-1.0 mg/dL) 0.5 (Ref Range: 0.0-1.0 mg/dL) 0.5 (Ref Range: 0.0-1.0 mg/dL) Aspartate Amino Transferase 55 H (Ref Range: 5-31 U/L) 35 H (Ref Range: 5-31 U/L) 21 (Ref Range: 5-31 U/L) Alanine Aminotransferase 42 H (Ref Range: 0-31 U/L) 44 H (Ref Range: 0-31 U/L) 23 (Ref Range: 0-31 U/L) Total Protein 7.1 (Ref Range: 6.5-8.0 g/dL) 6.6 (Ref Range: 6.5-8.0 g/dL) 6.9 (Ref Range: 6.5-8.0 g/dL) Albumin Level 4.3 (Ref Range: 3.5-5.0 g/dL) 4.1 (Ref Range: 3.5-5.0 g/dL) 4.1 (Ref Range: 3.5-5.0 g/dL) Alkaline Phosphatase 98 (Ref Range: 39-117 U/L) 80 (Ref Range: 39-117 U/L) 80 (Ref Range: 39-117 U/L) Potassium 4.1 (Ref Range: 3.3-5.1 mmol/L) 3.8 (Ref Range: 3.3-5.1 mmol/L) 4.3 (Ref Range: 3.3-5.1 mmol/L) Chloride 105 (Ref Range: 96-108 mmol/L) 107 (Ref Range: 96-108 mmol/L) 107 (Ref Range: 96-108 mmol/L) Carbon Dioxide 25 (Ref Range: 22-29 mmol/L) 27 (Ref Range: 22-29 mmol/L) 26 (Ref Range: 22-29 mmol/L) Anion Gap 16 (Ref Range: 12-20) 12 (Ref Range: 12-20) 11 L (Ref Range: 12-20) Blood Urea Nitrogen 13 (Ref Range: 9-16 mg/dL) 12 (Ref Range: 9-16 mg/dL) 8 L (Ref Range: 9-16 mg/dL) Creatinine 0.66 (Ref Range: 0.5-1.4 mg/dL) 0.82 (Ref Range: 0.5-1.4 mg/dL) 0.73 (Ref Range: 0.5-1.4 mg/dL) Estimated Glomerular Filt Rate > 60 > 60 > 60 Glucose Fasting 152 H (Ref Range: 60-99 mg/dL) 134 H (Ref Range: 60-99 mg/dL) 104 H (Ref Range: 60-99 mg/dL) Calcium 9.8 (Ref Range: 8.4-10.2 mg/dL) 9.6 (Ref Range: 8.4-10.2 mg/dL) 9.3 (Ref Range: 8.4-10.2 mg/dL) * Lab:Lipid Panel * Collection Date 06/23/2025 05/05/2024 05/27/2021 Collection Time 07:30 AM 08:24 AM 06:18 AM Order Date 06/23/2025 05/05/2024 05/27/2021 Triglycerides 340 H (Ref Range: <150 mg/dL) 242 H (Ref Range: <150 mg/dL) 270 (Ref Range: mg/dL) Cholesterol 210 H (Ref Range: <200 mg/dL) 188 (Ref Range: <200 mg/dL) 182 (Ref Range: mg/dL) LDL Cholesterol Calculated 92 (Ref Range: <100 mg/dL) 91 (Ref Range: <100 mg/dL) 83 (Ref Range: mg/dl) HDL Cholesterol 50 (Ref Range: >40 mg/dL) 49 (Ref Range: >40 mg/dL) 45 (Ref Range: mg/dL) * Examination: G eneral Examination: GENERAL APPEARANCE: [...] mass: morbid obesity. RECTAL EXAM: T he anus appears normal. The right buttock is unremarkable. The upper gluteal fold is normal. The skin over the left buttock is unremarkable without erythema or drainage. Is no open area. In the gluteal fold in the lower left buttock is a palpable 4 cm area of induration which causes pain.. MUSCULOSKELETAL: e xtremities unremarkable, no clubbing, cyanosis or edema. PERIPHERAL PULSES: n ormal. NEUROLOGIC: a lert and oriented, cranial nerves 2-12 grossly intact, deep tendon reflexes 2+ symmetrical, motor strength normal upper and lower extremities, sensory exam intact. PSYCH: a lert, oriented. Assessment: * Assessment: 1. P erianal abscess - K61.0 (Primary) N otes :There is a recurrent abscess under the skin which is palpable in the gluteal fold under the left buttock. This is a recurrence of her previous infection that required incision and drainage. She has been sent to the emergency room. 2 . I nvasive ductal carcinoma of [...] future at the weight loss program at [facility]. 6 . M ixed hyperlipidemia - E78.2 N otes :Her recent fasting cholesterol has increased to 210. The triglycerides are 340. She has gained 9 pounds. We have discussed diet and nutrition at length today. These values will be repeated. 7 . M orbid obesity - E66.01 N otes :She has gained 9 pounds. Her blood glucose is now 150 her cholesterol is 210 and her triglycerides are 340. Her liver function tests are slightly elevated which is likely steatosis. She is a good candidate for GLP-1 drug. I will continue to work with her try to have her enter a bariatric program. 8 . E ssential hypertension - I10 N otes :Her blood pressure was in the normal range today at 128/80. No change in regimen was needed. I recommended sodium restriction and aggressive weight loss with regular exercise. 9 . A cquired hemolytic anemia, unspecified - D59.9 N otes :She is not jaundiced. She does not appear anemic. Comprehensive blood work has been ordered. This problem has not relapsed. 1 0. O bstructive sleep apnea - G47.33 N otes :She has a CPAP device which she has not been using as it is not comfortable. After the perianal abscess issue is resolved I will have her see the pulmonary foreign legal consultant to see if a better machine or mask can be provided. 1 1. H yperglycemia - R73.9 N otes :Her fasting glucoses 152 in the context of an active abscess. Clearly she is prediabetic and likely has become diabetic. This value will be repeated with a hemoglobin A1c after the infection has resolved. If necessary she will be treated with a hypoglycemic agent. She is an excellent candidate for semaglutide. Plan: * Treatment: 2. I nvasive ductal [...] done: Medical or Other reason not done * Follow Up: 1 Week (Reason: OV) * Images: * Sign off status: Completed true * Provider: Janee Armendariz MD Date: 08/25/2024 Generated for Beny calhoun/Micki/Thomitting on: 08/27/2024 06:55 AM EST History and Physical [...] lymph no milly,spleen normal RECTAL EXAM: The anus appears nor mal. The right buttock is unremarkable. The upper gluteal fold is normal. The skin over the left buttock is unremarkable without erythema or drainage. Is no open area. In the gluteal fold in the lower left buttock is a palpable 4 cm area of induration which causes pain. PSYCH: alert, oriented ORAL CAVITY: normal, unremarkable
--- NOTE | ~2025-06-26 | CT_ITS ---
EXAMINATION: CT PELVIS WITH CONTRAST CLINICAL INFORMATION: Left perianal abscess. Evaluate. COMPARISON: CT abdomen and pelvis 03/05/2025. TECHNIQUE: Helical scanning was performed with submillimeter collimation through the pelvis with the use of oral contrast and during bolus intravenous injection of 85 mL of Omnipaque 350 intravenous contrast. Sagittal and coronal multiplanar 2-D reconstructions were obtained. This CT examination was performed using dose optimization techniques as appropriate, variously including the following: *Automated exposure control *Adjustment of mA and/or kV according to patient size (this includes techniques or standardized protocols for targeted exams where dose is matched to indication/reason for exam; i.e. extremities or head) *Use of iterative reconstruction technique FINDINGS: There is a left perianal abscess present measuring 7.7 cm in AP, by 4.6 cm in transverse, by 4.2 cm in craniocaudad dimension. This involves the left gluteal fold in the paramedian region, and extends to the anal verge with no distinct fat plane intervening. A perianal sinus tract cannot be excluded. There is associated surrounding inflammatory change. Above the levator sling, there is no definite involvement or inflammation. No definite extension cranial to the anal verge is evident. No involvement of the mesorectal fat. Urinary bladder, uterus, adnexal structures, appendix, and imaged bowel structures are normal. Rare sigmoid colonic diverticula. No vascular abnormality. No free intraperitoneal air or ascites. No suspicious focal bony abnormalities. Degenerative changes of the right greater than left SI joints is noted. CT/CT pelvis w IV con IMPRESSION: 1. Left perianal abscess measuring 7.7 x 4.6 x 4.2 cm extending to the left anal verge. There may be a sinus tract in this location. No definite involvement above the levator sling or above the anal verge is present. 2. Remainder of the examination is normal. Electronically signed by: Raoul Palacios MD 06/26/2025 09:21 AM MARCUS
[2025-06-26 06:36] VITALS: BP 160/87; PULSE 99; RESP 20; TEMP 36.7; O2SAT 95; BMI 49.9
--- OUTSIDE RECORDS SUMMARY | 2025-06-26 06:53 | XMS_ITS | Encounter Summary ---
Author Organization [employer] [facility] Prior to 05/16/2024 Address [address] [facility] [place] [address] Care Team Providers Care Nail Specialist Name Role Phone Cherie Ni MD Primary Care Provider Un available Lubna Valle MD Primary Care Provider Bhanu Brown MD Primary Care Provider Panda aldrich Encounter Details Date Type Department Care Team Description 09/06/2016 Journalism Instructor Report Medical Records [address] [place] [id number] Bhanu Armendariz MD Social History Tobacco Use Types Packs/Day Years Used Date Smoking Tobacco: Former Cigarettes 0.5 Smokeless Tobacco: Never Comments:quit 12/28 --- Jul 17 011 continues to smoke 1/2 PPD down to 3 cigs a day as of 01/31/2010 Alcohol Use Standard Drinks/Week Comments Yes 0 (1 standard drink = 0.6 oz pur e alcohol) occasionally, 1x a week Sex Assigned at Date Recorded Not on file documented as of this encounter Plan of Treatment Not on file documented as of this encounter Visit Diagnoses Not on filedocumented in this encounter Care Teams Nail Specialist Relationship Specialty Start Date End Date Cherie Ni MD PCP - General Internal Medicine 07/16/14 Lubna Valle MD PCP - General Internal Medicine 04/09/17 11/01/20 Bhanu Armendariz MD PCP - General Oncology/Hematology 11/02/20 documented as of this encounter
--- OUTSIDE RECORDS SUMMARY | 2025-06-26 06:54 | XMS_ITS | Encounter Summary ---
Author Organization [employer] [facility] Prior to 05/16/2024 Address [address] [facility] [place] [address] Care Team Providers Care Surveillance Manager Name Role Phone Cherie Ni MD Primary Care Provider Un available Glory Rodriguez MD Primary Care Provider [phone] Senthil Singh MD Primary Care Provider Unavailab le Cherie Ni MD Primary Care Provider Un available Lubna Valle MD Primary Care Provider Unava ilBhanu June MD Primary Care Provider Panda aldrich Encounter Details Date Type Department Care Team Description 09/20/2011 Hospital Medical Records [address] [place] [address] Courtney Bolanos MD Social History Tobacco Use Types Packs/Day [...] on filedocumented in this encounter Care Teams Surveillance Manager Relationship Specialty Start Date End Date Cherie Ni MD PCP - General 01/13/1998 10/04/11 Glory Rodriguez MD [address] [place] [address] PCP - General Internal Medicine 10/05/11 04/22/13 Senthil Singh MD [address] [place] [address] PCP - General Internal Medicine 04/23/13 07/15/14 Cherie Ni MD PCP - General Internal Medicine 07/16/14 Lubna Valle MD [address] [place] [address] PCP - General Internal Medicine 04/09/17 11/01/20 Bhanu Armendariz MD [address] [place] [address] PCP - General Oncology/Hematology 11/02/20 documented as of this encounter
--- OUTSIDE RECORDS SUMMARY | 2025-06-26 06:54 | XMS_ITS | Encounter Summary ---
Author Organization [employer] [facility] Prior to 05/16/2024 Address [address] [place] [address] Care Team Providers Care Corpsman Name Role Phone Cherie Ni MD Primary Care Provider Un available Glory Rodriguez MD Primary Care Provider [phone] Senthil Singh MD Primary Care Provider Unavailab le Cherie Ni MD Primary Care Provider Un available Lubna Valle MD Primary Care Provider Unava ilable Bhanu Armendariz MD Primary Care Provider Munavai elinor Encounter Details Date Type Department Care Team Description 08/08/2010 Mechanical Engineering Teacher Report Medical Records [address] [place] [address] Bhanu Armendariz MD Social History Tobacco Use Types Packs/Day Years Used Date Smoking Tobacco: Every Day Cigarettes 0.5 Comments:down to 3 cigs a da y as of 01/31/2010 Alcohol Use Standard Drinks/Week Comments Not Asked 0 (1 standard drink = 0.6 oz pur e alcohol) Sex Assigned at Date Recorded Not on file documented as of this encounter Plan of Treatment Not on file documented as of this encounter Visit Diagnoses Not on filedocumented in this encounter Care Teams Corpsman Relationship Specialty Start Date End Date Cherie Ni MD PCP - General 01/13/1998 10/04/11 Glory Rodriguez MD [address] [place] [address] PCP - General Internal Medicine 10/05/11 04/22/13 Senthil Singh MD [address] [place] [address] PCP - General Internal Medicine 04/23/13 07/15/14 Cherie Ni MD PCP - General Internal Medicine 07/16/14 Lubna Valle MD [address] [place] [address] PCP - General Internal Medicine 04/09/17 11/01/20 Bhanu Armendariz MD [address] [place] [address] PCP - General Oncology/Hematology 11/02/20 documented as of this encounter
--- OUTSIDE RECORDS SUMMARY | 2025-06-26 06:54 | XMS_ITS | Encounter Summary ---
Author Organization [facility] Prior to 05/16/[facility]24 Address [address] [facility] [place] [address] Care Team Providers Care Skills Trainer Name Role Phone Bhanu Armendariz MD Primary Care Provider Panda aldrich Reason for Visit * Reason Onset Date Comments Surgery (Schedule) 11/12/2020 Encounter Details Date Type Department Care Team Description 11/12/2020 Telephone Plastic Surgery - [place] [address] [place] [address] Dustin Eduardo DO Surgery (Schedule) Social History Tobacco Use Types Packs/Day Years [...] Assigned at Date Recorded Not on file COVID-19 Exposure Response Date Recorded In the last month, have you been in contact with someone who was confirmed or suspected to have Coronavirus / COVID-19? No / Unsure 11/08/2020 2:48 PM EDT documented as of this encounter Miscellaneous Notes * Telephone Encounter - Kyung Denise - 11/12/2020 9:11 AM EDT Patient called inquiring about a surgical date. She was seen this past Sunday. She understands it takes a week or two for a call offering a surgical date. She was wondering if it is possible to get the procedure done in the end of November because she is starting a new job and won't have insurance for 3months starting December 14. Is willing to take any surgical date and time before her insurance runs out. documented in this encounter Plan of Treatment Not on file documented as of this encounter Visit Diagnoses Not on filedocumented in this encounter Care Teams Skills Trainer Relationship Specialty Start Date End Date Bhanu Armendariz MD PCP - General Oncology/Hematology 11/02/20 documented as of this encounter
--- OUTSIDE RECORDS SUMMARY | 2025-06-26 06:54 | XMS_ITS | Encounter Summary ---
Author Organization [employer] [facility] Prior to 05/16/2024 Address [address] [facility] [place] [address] Care Team Providers Care Oracle Pl Sql Developer Name Role Phone Lubna Valle MD Primary Care Provider Bhanu Brown MD Primary Care Provider Panda aldrich Encounter Details Date Type Department Care Team Description 08/03/2020 Fire Range Technician Report Medical Records [address] [facility] [place] [address] Senthil Franks Social History Tobacco Use Types Packs/Day Years [...] on filedocumented in this encounter Care Teams Oracle Pl Sql Developer Relationship Specialty Start Date End Date Lubna Valle MD PCP - General Internal Medicine 04/09/17 11/01/20 Bhanu Armendariz MD PCP - General Oncology/Hematology 11/02/20 documented as of this encounter
--- OUTSIDE RECORDS SUMMARY | 2025-06-26 06:54 | XMS_ITS | Encounter Summary ---
Author Organization [employer] [facility] Prior to 05/16/2024 Address [address] [facility] [place] [address] Care Team Providers Care Template Reproduction Technician Name Role Phone Cherie Ni MD Primary Care Provider Un available Glory Rodriguez MD Primary Care Provider [phone] Senthil Singh MD Primary Care Provider Unavailab le Cherie Ni MD Primary Care Provider Un available Lubna Valle MD Primary Care Provider Unava ilBhanu June MD Primary Care Provider Panda aldrich Encounter Details Date Type Department Care Team Description 08/23/2010 Hospital Medical Records [address] [place] [address] Domingo Faith MD Social History Tobacco Use Types Packs/Day [...] on filedocumented in this encounter Care Teams Template Reproduction Technician Relationship Specialty Start Date End Date Cherie Ni MD PCP - General 01/13/1998 10/04/11 Glory Rodriguez MD [address] [place] [address] PCP - General Internal Medicine 10/05/11 04/22/13 Senthil Singh MD [address] [place] [address] PCP - General Internal Medicine 04/23/13 07/15/14 Cherie Ni MD PCP - General Internal Medicine 07/16/14 Lubna Valle MD [address] [place] [address] PCP - General Internal Medicine 04/09/17 11/01/20 Bhanu Armendariz MD [address] [place] [phone] PCP - General Oncology/Hematology 11/02/20 documented as of this encounter
--- OUTSIDE RECORDS SUMMARY | 2025-06-26 06:54 | XMS_ITS | Patient Health Record ---
Author Organization Bhanu Armendariz III, MD Address [address] [place] [address] [place] [address] Care Team Providers Care Lunchroom Mother Name Role Phone Bhanu Armendariz III, MD Primary Care Provider Dr. Bhanu Armendariz III Unavailable Allergies Allergen (clinical drug ingredient) Drug/Non Drug Allergy documented on EMR Reaction Allergy Type Onset Date Status No Known Drug Allergy Unknown Drug Allergy Active No Known Food Allergy Unknown Drug Allergy Active Results Component Value Reference Range Notes CT NG by PCR Reviewed date:02/22/2025 08:05:27 PM Interpretation: Performing Lab:[facility], [address] [place] [phone] Notes/Report: CT PCR NOT DETECTED Not Detect. [...] Panel Reviewed date:02/22/2025 08:05:27 PM Interpretation: Performing Lab:[facility], [address] [place] [phone] Notes/Report: Trichomonas vaginalis PCR NOT DETECTED Not [...] ONLY Reviewed date:03/08/2025 05:05:12 AM Interpretation: Performing Lab:[facility], [address] [place] [phone] Notes/Report: Lactic Acid-LAB USE ONLY 1.3 0.5-2.0 mmol/L CT abdomen pelvis w con Reviewed date:03/08/2025 05:05:12 AM Interpretation: Performing Lab: Notes/Report: [address] [place] [address] CT Scan Report Signed Patient: Alexa Zamora MR#: [id number] : 1975 Acct:[id number] Age/Sex: 49 / F ADM Date: 03/05/25 Loc: HO.ED Attending Dr: Ordering Physician: Lila Arizmendi MD Date of Service: 03/05/25 Procedure(s): CT abdomen pelvis w IV con Accession Number(s): [id number] cc: Bhanu Armendariz MD; Lila Arizmendi MD Report Number: [id number]: Total DLP = 1497.00 mGy-cm EXAMINATION: CT [...] in OV> 03/05/25952 DD/ 5 TD/TT: 03/05/25899 Door Puller: [place] [address] CT Scan Report Signed Patient: Alexa Zamora MR#: [id number] : 1975 Acct:[id number] Age/Sex: 49 / F ADM Date: 03/05/25 Loc: HO.ED Attending Dr: Ordering Physician: Lila Arizmendi MD Date of Service: 03/05/25 Procedure(s): CT abd omen pelvis w IV con Accession Number(s): [id number] cc: Bhanu Armendariz MD; Lila Arizmendi MD Report Number: [id number]: Total DLP = 1497.00 mGy-cm EXAMINATION: CT [...] 03/05/25 0953 DD/ 0836 TD/TT: 03/05/25 0900 Door Puller: Complete Blood Count no Diff Reviewed date:03/08/2025 05:05:12 AM Interpretation: Performing Lab:[facility], [address] [place] [phone] Notes/Report: White Blood Count 11.8 4.8-10.8 X10*3/uL [...] Panel Reviewed date:03/08/2025 05:05:12 AM Interpretation: Performing Lab:[facility], [address] [place] [phone] Notes/Report: Sodium 144 135-145 mmol/L Potassium 3.7 [...] Trough Reviewed date:03/08/2025 05:05:12 AM Interpretation: Performing Lab:[facility], [address] [place] [phone] Notes/Report: Vancomycin Trough 9.5 10.0-20.0 mcg/mL Complete Blood Count Auto Di ff Reviewed date:03/08/2025 05:05:12 AM Interpretation: Performing Lab:[facility], [address] [place] [phone] Notes/Report: White Blood Count 9.7 4.8-10.8 X10*3/uL [...] Creatinine Reviewed date:03/08/2025 05:05:12 AM Interpretation: Performing Lab:[address] [address] Notes/Report: Creatinine 0.71 0.5-1.4 mg/dL Creatinine Clr [...] Kidney Disease: Estimated GFR < 15 mL/min/1.73m2 Complete Blood Count Auto Di ff Reviewed date:06/24/2025 03:05:53 PM Interpretation: Performing Lab:[facility], [address] [place] [phone] Notes/Report: White Blood Count 12.1 4.8-10.8 X10*3/uL Red Blood Count 4.97 4.20-5.50 X10*6/uL Hemoglobin 14.1 12.0-16.0 g/dl Hematocrit 42.0 37.0-47.0 % Mean Corpuscular Volume 84.5 80.0-98.0 fL Mean Corpuscular Hemoglobin 28.4 27.0-33.0 pg Mean Corpuscular HGB Conc 33.6 31.0-35.0 g/dl Red Cell Distribution Width 13.7 11.0-16.0 % Platelet Count 307 160-400 X10*3/uL Mean Platelet Volume 9.6 9.4-12.3 fL Neutrophils Percent Auto 69.9 45-73 % Imm Gran Pct Auto 0.6 0.0-0.4 % Lymphocytes Percent Auto 20.0 20-40 % Monocytes Percent Auto 5.9 2-11 % Eosinophils Percent Auto 3.2 0-4 % Basophils Percent Auto 0.4 0-2 % NRBC Pct Auto 0.0 0.0-0.2 /100WBC Neutrophils Absolute Auto 8.4 2.0-8.3 x10*3/uL Imm Gran Abs Auto 0.07 0.00-0.03 X10*3/uL Lymphocytes Absolute Auto 2.4 1.2-4.9 X10*3/uL Monocytes Absolute Auto 0.7 0.1-1.2 X10*3/uL Eosinophils Absolute Auto 0.4 0.0-0.4 X10*3/uL Basophils Absolute Auto 0.1 0.0-0.2 X10*3/uL NRBC Abs Auto 0.000 0.0-0.012 X10*3/uL Comprehensive [place]. Panel Fa st Reviewed date:06/24/2025 03:05:53 PM Interpretation: Performing Lab:[facility], [address] [place] [phone] Notes/Report: Sodium 142 135-145 mmol/L Potassium 4.1 3.3-5.1 mmol/L Chloride 105 96-108 mmol/L Carbon Dioxide 25 22-29 mmol/L Anion Gap 16 12-20 Blood Urea Nitrogen 13 9-16 mg/dL Creatinine 0.66 0.5-1.4 mg/dL Estimated Glomerular Filt Rate > 60 Chronic Kidney Disease: Estimated GFR < 60 mL/min/1.73m2 Severe Kidney Disease: Estimated GFR < 15 mL/min/1.73m2 Glucose Fasting 152 60-99 mg/dL A fasting glucose of 126 mg/dl or greater on more than one occasion is considered diagnostic of diabetes. Calcium 9.8 8.4-10.2 mg/dL Bilirubin Total 0.5 0.0-1.0 mg/dL Aspartate Amino Transferase 55 5-31 U/L Alanine Aminotransferase 42 0-31 U/L Total Protein 7.1 6.5-8.0 g/dL Albumin Level 4.3 3.5-5.0 g/dL Alkaline Phosphatase 98 39-117 U/L Lipid Panel Reviewed date:06/24/2025 03:05:53 PM Interpretation: Performing Lab:[facility], [address] [place] [phone] Notes/Report: Triglycerides 340 <150 mg/dL Desirable Triglyceride: less than 150 mg/dL Borderline High Triglyceride 150-199 mg/dL High Triglyceride: 200-499 mg/dL Very High Triglyceride: greater than or equal to 5OO mg/dL Cholesterol 210 <200 mg/dL Desirable Cholesterol: less than 200 mg/dL Borderline High Cholesterol: 200-239 mg/dL High Cholesterol: greater than 239 mg/dL LDL Cholesterol Calculated 92 <100 mg/dL Desirable LDL: less than 100 mg/dL Near Optimal/Above Optimal LDL: 110-129 mg/dL Borderline High LDL: 130-159 mg/dL High LDL: 160-189 mg/dL Very High LDL: greater than or equal to 190 mg/dL HDL Cholesterol 50 >40 mg/dL Desirable HDL: greater than 40 mg/dL Note: This HDL assay may give artificially low results in patients with liver disease. Reason For Referral Reason Urgent Appointment R [...] Duration) Notes Start Date End Date Status Atorvastatin Calcium 10 MG TAKE 1 TABLET BY MOUTH EVERY DAY Active diazePAM 5 MG 1 tablet as needed O rally every 8 hours x 3 prior to surgery 06/24/2019 Active Amoxicillin-Pot Clavulanate 875-125 MG Oral Activ e Metoprolol Succinate ER 50 MG TAKE 1 TABLET BY MOUTH TWICE A DAY Active Zepbound 7.5 MG/0.5ML 0.5 mL Subcutaneou s once a week 03/04/2025 Active hydrALAZINE HCl 10 MG TAKE 2 TABLETS BY MOUTH FOUR TIMES A DAY 90 DAYS Active Anastrozole 1 MG 1 tablet Orally Once a day Active metroNIDAZOLE 500 MG 1 [...] Once a day Active Multi Vitamin Active Immunizations Vaccine Route Administration Date Status [...] Problem Status W/U Status Risk Notes Problem 9845196 Former smoker (Z87.891) Active confirmed She has a strategy mapped out to prevent relapse in times of stress and illness. Problem 548550845 Anemia (D64.9) Active confirmed There was no evidence for hemolysis today. Problem 62173160 Hyperglycemia (R73.9) Active confirmed Her fasting glucoses 152 in the context of an active abscess. Clearly she is prediabetic and likely has become diabetic. This value will be repeated with a hemoglobin A1c after the infection has resolved. If necessary she will be treated with a hypoglycemic agent. She is an excellent candidate for semaglutide. Problem Acquired hemolytic anemia (6908635) Acquired hemolytic anemia, unspecified (D59.9) Active confirmed She is not jaundiced. She does not appear anemic. Comprehensive blood work has been ordered. This problem has not relapsed. Problem 760312743 Mixed hyperlipidemia (E78.2) Active confirmed Her recent fasting cholesterol has increased to 210. The triglycerides are 340. She has gained 9 pounds. We have discussed diet and nutrition at length today. These values will be repeated. Problem 119638769 Acquired hypothyroidism (E03.9) Active confirmed She was continued on current therapy. Blood work will be done in detail in the near future at the weight loss program at [facility]. Problem 46004792 Essential hypertension (I10) Active confirmed Her blood pressure was in the normal range today at 128/80. No change in regimen was needed. I recommended sodium restriction and aggressive weight loss with regular exercise. Problem 83054993 Obstructive sleep apnea (G47.33) Active confirmed She has a CPAP device which she has not been using as it is not comfortable. After the perianal abscess issue is resolved I will have her see the pulmonary benefits sales consultant to see if a better machine or mask can be provided. Problem 506339649 Invasive ductal carcinoma of right breast (C50.911) Active confirmed Her adjuvant endocrine therapy was continued. There is no sign of relapse at this time. There is no sign of a new primary. She has been compliant with her therapy and appointments. She was soon complete her fifth year of adjuvant endocrine therapy.She is taking anastrozole 1 mg daily. Problem 455740202 Factor V Leiden mutation (D68.51) Active confirmed She has had no episodes of blood clotting. Her father has a Leiden mutation and one episode of clotting. Problem 773164191 Morbid obesity (E66.01) Active confirmed She has gained 9 pounds. Her blood glucose is now 150 her cholesterol is 210 and her triglycerides are 340. Her liver function tests are slightly elevated which is likely steatosis. She is a good candidate for GLP-1 drug. I will continue to work with her try to have her enter a bariatric program. Problem 80714204 Perianal abscess (K61.0) Active confirmed There is a recurrent abscess under the skin which is palpable in the gluteal fold under the left buttock. This is a recurrence of her previous infection that required incision and drainage. She has been sent to the emergency room. Vital Signs Heart Rate 84 /min 06/24/2025 Temperature 97.3 degrees Fahrenheit 06/24/2025 Blood pressure diastolic 83 mm Hg 06/24/2025 Height 66 in 06/24/2025 Blood pressure systolic 138 mm Hg 06/24/2025 Weight 298 lbs 06/24/2025 BMI 48.09 kg/m2 06/24/2025 Encounters Encounter Location Date Provider Diagnosis Bhanu Armendariz III, MD [address] [place] [address] [place] [address] 08/11/2024 Bhanu Armendariz Invasive ductal carcinoma of right breast C50.911 ; Mixed hyperlipidemia E78.2 ; Morbid obesity E66.01 ; Factor V Leiden mutation D68.51 ; Former smoker Z87.891 ; Acquired hypothyroidism E03.9 and Obstructive sleep apnea G47.33 Bhanu Armendariz III, MD [address] [place] [address] [place] [address] 03/04/2025 Bhanu Armendariz Invasive ductal carcinoma of right breast C50.911 ; Morbid obesity E66.01 ; Former smoker Z87.891 ; Factor V Leiden mutation D68.51 ; Acquired hypothyroidism E03.9 and Perianal abscess K61.0 Bhanu Armendariz III, MD [address] [place] [address] [place] [address] 03/11/2025 Bhanu Armendariz Invasive ductal carcinoma of right breast C50.911 ; Perianal abscess K61.0 ; Factor V Leiden mutation D68.51 ; Former smoker Z87.891 ; Acquired hypothyroidism E03.9 ; Mixed hyperlipidemia E78.2 ; Obstructive sleep apnea G47.33 and Acquired hemolytic anemia, unspecified D59.9 Bhanu Armendariz III, MD [address] [place] [address] [place] [address] 03/20/2025 Bhanu Hollidayne Invasive ductal carcinoma of right breast C50.911 ; Perianal abscess K61.0 ; Anemia D64.9 ; Mixed hyperlipidemia E78.2 ; Morbid obesity E66.01 ; Former smoker Z87.891 and Factor V Leiden mutation D68.51 Bhanu Armendariz III, MD [address] [place] [address] [place] [address] 06/24/2025 Bhanu Hollidayne Invasive ductal carcinoma of right breast C50.911 ; Perianal abscess K61.0 ; Factor V Leiden mutation D68.51 ; Former smoker Z87.891 ; Acquired hypothyroidism E03.9 ; Mixed hyperlipidemia E78.2 ; Morbid obesity E66.01 ; Essential hypertension I10 ; Acquired hemolytic anemia, unspecified D59.9 ; Obstructive sleep apnea G47.33 and Hyperglycemia R73.9 Bhanu Armendariz III, MD [address] [place] [address] [place] [address] 12/17/2024 Bhanu Armendariz III, MD [address] [place] [address] [address] [place], [place] [address] 03/05/2025 Bhanu Armendariz III, MD [address] [place] [address] [address] [place] [address] 03/06/2025 Bhanu Armendariz Assessments Encounter Date Diagnosis [...] the palpable abnormality is no longer there. 06/24/2025 Invasive ductal carcinoma of right breast [...] has been sent to the emergency room. 08/11/2024 Morbid obesity (ICD-10 - E66.01) She [...] There was no evidence for hemolysis today. 06/24/2025 Factor V Leiden mutation (ICD-10 - D68.51) She has had no episodes of blood clotting. Her father has a Leiden mutation and one episode of clotting. 08/11/2024 Factor V Leiden mutation (ICD-10 - [...] with fasting lipids will be obtained periodically. 06/24/2025 Former smoker (ICD-1 0 - Z87.891) She has a strategy mapped out to prevent relapse in times of stress and illness. 08/11/2024 Former smoker (ICD-1 0 - Z87.891) She has a strategy mapped out to prevent relapse in times of stress and illness. 03/04/2025 Acquired hypothyroidism (ICD-10 - E03.9) She was continued on current therapy. Blood work will be done in detail in the near future at the weight loss program at [facility]. 03/11/2025 Acquired hypothyroidism (ICD-10 - E03.9) She was continued on current therapy. Blood work will be done in detail in the near future at the weight loss program at [facility]. 03/20/2025 Morbid obesity (ICD-10 - E66.01) I will continue my aggressive attempts to help her lose weight. 06/24/2025 Acquired hypothyroidism (ICD-10 - E03.9) She was continued on current therapy. Blood work will be done in detail in the near future at the weight loss program at [facility]. 08/11/2024 Acquired hypothyroidism (ICD-10 - E03.9) She was continued on current therapy. Blood work will be done in detail in the near future at the weight loss program at [facility]. 03/04/2025 Perianal abscess (ICD-10 - K61.0) This [...] in times of stress and illness. 06/24/2025 Mixed hyperlipidemia (ICD-10 - E78.2) Her recent fasting cholesterol has increased to 210. The triglycerides are 340. She has gained 9 pounds. We have discussed diet and nutrition at length today. These values will be repeated. 08/11/2024 Obstructive sleep apnea (ICD-10 - G47.33) 03/11/2025 Obstructive sleep apnea (ICD-10 - G47.33) 03/20/2025 Factor V Leiden mutation (ICD-10 - D68.51) She has had no episodes of blood clotting. Her father has a Leiden mutation and one episode of clotting. 06/24/2025 Morbid obesity (ICD-10 - E66.01) She has gained 9 pounds. Her blood glucose is now 150 her cholesterol is 210 and her triglycerides are 340. Her liver function tests are slightly elevated which is likely steatosis. She is a good candidate for GLP-1 drug. I will continue to work with her try to have her enter a bariatric program. 03/11/2025 Acquired hemolytic anemia, unspecified (ICD-10 - D59.9) She is not jaundiced. She does not appear anemic. Comprehensive blood work has been ordered. This problem has not relapsed. 06/24/2025 Essential hypertension (ICD-10 - I10) Her [...] I will have her see the pulmonary benefits sales consultant to see if a better machine [...] excellent candidate for semaglutide. Plan Of Treatment Pending Test Test Name Order Date PROFILE, FASTING (COMPREHENSIVE METABOLI C) 08/14/2022 PROFILE, FASTING (COMPREHENSIVE METABOLI C) 03/20/2025 PROFILE, FASTING (COMPREHENSIVE METABOLI C) 12/03/2020 PROFILE, FASTING (COMPREHENSIVE METABOLI C) 05/01/2022 PROFILE, FASTING (COMPREHENSIVE METABOLI C) 01/01/2019 PROFILE, FASTING (COMPREHENSIVE METABOLI C) 03/03/2024 PROFILE, FASTING (COMPREHENSIVE METABOLI C) 08/11/2024 PROFILE, FASTING (COMPREHENSIVE METABOLI C) 08/29/2021 PROFILE, FASTING (COMPREHENSIVE METABOLI C) 11/19/2018 PROFILE, FASTING (COMPREHENSIVE METABOLI C) 03/07/2021 PROFILE, RANDOM (COMPREHENSIVE METABOLIC ) 09/06/2016 PROFILE, RANDOM (COMPREHENSIVE METABOLIC ) 02/10/2020 PROFILE, RANDOM (COMPREHENSIVE METABOLIC ) 08/17/2023 LIPID PANEL 03/07/2021 LIPID PANEL 08/14/2022 LIPID PANEL 12/03/2020 LIPID PANEL 05/01/2022 LIPID PANEL 01/01/2019 LIPID PANEL 11/19/2018 LDH 02/10/2020 FREE T4 (FT4) 08/17/2023 FREE [...] Panel 03/20/2025 Next Appt Details Provider Name:Bhanu Armendariz , 07/02/2025 10:15:00 AM, [address] [place] [address] [address], [place], [address], Provider Name:Bhanu Armendariz , 03/08/2026 02:00:00 PM, [address] [place] [address] [address], [place], [address], Insurance Providers Payer Name Payer Address Payer Phone Subscriber Number Group Number Insured Name Patient Relationship to Insured Coverage Start Date Coverage End Date [facility] [address] [facility] [address] [facility] [place] [phone] [id number] Alexa Beauchamp Self - patient is the insured 5 Medical (General) History Medical History History ICD Code splenomegaly ovarian mass migraines autoimmune hemolytic anemia heterozygous factor V Leiden 07/03 stage IER+NV+Bvl-ozkh-cwozvuxi xochitl 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
--- OUTSIDE RECORDS SUMMARY | 2025-06-26 06:55 | XMS_ITS | Encounter Summary ---
Author Organization [employer] [facility] Prior to 05/16/2024 Address [address] [facility] [place] [address] Care Team Providers Care Seafood Fisherman Name Role Phone Cherie Ni MD Primary Care Provider Un available Lubna Valle MD Primary Care Provider Bhanu Brown MD Primary Care Provider Panda aldrich Encounter Details Date Type Department Care Team Description 10/12/2014 Orders Only Medicine/Pediatrics - [address] [address] Shahram Zabala PA-C Sinusitis (Primary Dx) Social History Tobacco Use Types Packs/Day Years Used Date Smoking Tobacco: Every Day Cigarettes 0.5 Smokeless Tobacco: Never Comments:Jul 2010 continues to smoke 1/2 PPD down to 3 cigs a day as of 01/31/2010 Alcohol Use Standard Drinks/Week Comments No 0 (1 standard drink = 0.6 oz pur e alcohol) Sex Assigned at Date Recorded Not on file documented as of this encounter Plan of Treatment Not on file documented as of this encounter Visit Diagnoses Diagnosis Sinusitis- Primary Unspecified sinusitis (chronic) documented in this encounter Care Teams Seafood Fisherman Relationship Specialty Start Date End Date Cherie Ni MD PCP - General Internal Medicine 07/16/14 Lubna Valle MD PCP - General Internal Medicine 04/09/17 11/01/20 Bhanu Armendariz MD PCP - General Oncology/Hematology 11/02/20 documented as of this encounter
--- OUTSIDE RECORDS SUMMARY | 2025-06-26 06:55 | XMS_ITS | Encounter Summary ---
Author Organization [employer] [facility] Prior to 05/16/2024 Address [address] [facility] [place] [address] Care Team Providers Care Customer Servicer Name Role Phone Cherie Ni MD Primary Care Provider Un available Lubna Valle MD Primary Care Provider Bhanu Brown MD Primary Care Provider Panda aldrich Encounter Details Date Type Department Care Team Description 07/26/2015 Free Lance Model Report Medical Records [address] [place] [id number] Zoie Jhaveri MD Social History Tobacco Use Types Packs/Day [...] on filedocumented in this encounter Care Teams Customer Servicer Relationship Specialty Start Date End Date Cherie Ni MD PCP - General Internal Medicine 07/16/14 Lubna Valle MD PCP - General Internal Medicine 04/09/17 11/01/20 Bhanu Armendariz MD PCP - General Oncology/Hematology 11/02/20 documented as of this encounter
--- OUTSIDE RECORDS SUMMARY | 2025-06-26 06:55 | XMS_ITS | Patient Health Record ---
Author Organization [facility] Address [address] [place] [address] Care Team Providers Care Handle Lathe Operator Name Role Phone Bhanu Armendariz MD Primary Care Provider Unavailab Mia Shanks Unavailable [phone] Allergies No Known Allergies Reason For Referral [...] W/U Status Risk Notes Problem Tinea unguium (322279154) Tinea unguium (B35.1) Active confirmed Chronic,Rx management (4) Vital Signs Blood pressure diastolic 81 mm Hg 01/29/2025 Height 5ft5in in 01/29/2025 Blood pressure systolic 124 mm Hg 01/29/2025 Weight 300 lbs 01/29/2025 BMI 49.92 kg/m2 01/29/2025 Encounters Encounter Location Date Provider Diagnosis [facility] [address] 01/29/2025 Mia Tian Tinea unguium B35.1 ; Pain in right toe(s) M79.674 and Pain in left toe(s) M79.[address] [address] 10/30/2024 Mia Tian [address] [address] 01/27/2025 Mia Tian Assessments Encounter Date Diagnosis (ICD Code) Assessment Notes Treatment Notes Treatment Clinical Notes Section Notes 01/29/2025 Tinea unguium (ICD-10 - B35.1) Chronic,Rx management (4) EBM Medical prescription ordered and faxed 01/29/2025 Pain in right toe(s) (ICD-10 - M79.674) 01/29/2025 Pain in left toe(s) (ICD-10 - M79.675) Plan Of Treatment Pending Test Test Name Order Date *Liver Function Test (LFT) 03/06/2022 57032-Tzzigqhp Plate 05/29/2022 20906-Fgsxlnwt Plate 06/04/2023 91107- Debride <25 sq cm 06/12/2022 Next Appt Details Provider Name:Mia Tian , 07/23/2025 08:00:00 AM, [address] [place] [address], [phone], Insurance Providers Payer Name Payer Address Payer Phone Subscriber Number Group Number Insured Name Patient Relationship to Insured Coverage Start Date Coverage End Date [facility] [address] [facility] [place] [id number] Alexa Beauchamp Self - patient is the insured 5 Medical (General) History Medical History History ICD Code Anxiety Cancer Depression Diverticulosis Headaches/Migraines High blood pressure Chicken pox Transfusions Surgical History Surgery Date(Month/Year) lumpectomy 06/2019
--- OUTSIDE RECORDS SUMMARY | 2025-06-26 06:55 | XMS_ITS | Encounter Summary ---
Author Organization [employer] [facility] Prior to 05/16/2024 Address [address] [facility] [place] [address] Care Team Providers Care General Manager Farm Name Role Phone Cherie Ni MD Primary Care Provider Un available Lubna Valle MD Primary Care Provider Bhanu Brown MD Primary Care Provider Panda aldrich Encounter Details Date Type Department Care Team Description 03/29/2015 Cloth Finisher Report Medical Records [address] [place] [id number] Zoie Jhaveri MD Social History Tobacco Use [...] on filedocumented in this encounter Care Teams General Manager Farm Relationship Specialty Start Date End Date Cherie Ni MD PCP - General Internal Medicine 07/16/14 Lubna Valle MD PCP - General Internal Medicine 04/09/17 11/01/20 Bhanu Armendariz MD PCP - General Oncology/Hematology 11/02/20 documented as of this encounter
--- OUTSIDE RECORDS SUMMARY | 2025-06-26 06:55 | XMS_ITS | Encounter Summary ---
Author Organization [facility] Prior to 05/16/2024 Address [address] [facility] [place] [place] [id number] Care Team Providers Care Coagulation Operator Name Role Phone Cherie Ni MD Primary Care Provider Un available Lubna Valle MD Primary Care Provider Bhanu Brown MD Primary Care Provider Panda aldrich Encounter Details Date Type Department Care Team Description 09/06/2015 Boilermaker Ship Report Medical Records [address] [place] [id number] Bhanu Armendariz MD Social History Tobacco Use Types Packs/Day Years Used Date Smoking Tobacco: Every Day Cigarettes 0.5 Smokeless Tobacco: Never Comments:quit 12/28 [...] on filedocumented in this encounter Care Teams Coagulation Operator Relationship Specialty Start Date End Date Cherie Ni MD PCP - General Internal Medicine 07/16/14 Lubna Valle MD PCP - General Internal Medicine 04/09/17 11/01/20 Bhanu Armendariz MD PCP - General Oncology/Hematology 11/02/20 documented as of this encounter
--- OUTSIDE RECORDS SUMMARY | 2025-06-26 06:56 | XMS_ITS | Encounter Summary ---
Author Organization [facility] Prior to 05/16/2024 Address [address] [facility] [place] [address] Care Team Providers Care Seed Laboratory Technician Name Role Phone Cherie Ni MD Primary Care Provider Un available Glory Rodriguez MD Primary Care Provider [phone] Senthil Singh MD Primary Care Provider Unavailab le Cherie Ni MD Primary Care Provider Un available Lubna Valle MD Primary Care Provider Unava ilBhanu June MD Primary Care Provider Panda aldrich Encounter Details Date Type Department Care Team Description 01/28/2010 Hospital Medical Records [address] [place] [id number] Domingo Faith MD Social History Tobacco Use [...] on filedocumented in this encounter Care Teams Seed Laboratory Technician Relationship Specialty Start Date End Date Cherie Ni MD PCP - General 01/13/1998 10/04/11 Glory Rodriguez MD [address] [place] [address] PCP - General Internal Medicine 10/05/11 04/22/13 Senthil Singh MD [address] [place] [address] PCP - General Internal Medicine 04/23/13 07/15/14 Cherie Ni MD PCP - General Internal Medicine 07/16/14 Lubna Valle MD [address] [place] [address] PCP - General Internal Medicine 04/09/17 11/01/20 Bhanu Armendariz MD [address] [place] [address] PCP - General Oncology/Hematology 11/02/20 documented as of this encounter
--- OUTSIDE RECORDS SUMMARY | 2025-06-26 06:56 | XMS_ITS | Encounter Summary ---
Author Organization [facility] [employer] [facility] Prior to 05/16/2024 Address [address] [facility] [place] [address] Care Team Providers Care Granite Countertop Installer Name Role Phone Senthil Singh MD Primary Care Provider Unavailab Cherie Sinha MD Primary Care Provider Un available Lubna Valle MD Primary Care Provider Unava ilable Bhanu Armendariz MD Primary Care Provider Panda aldrich Encounter Details Date Type Department Care Team Description 03/09/2014 Child Care Associate Report Medical Records [address] [place] [address] Bhanu Armendariz MD Social History Tobacco Use [...] on filedocumented in this encounter Care Teams Granite Countertop Installer Relationship Specialty Start Date End Date Senthil Singh MD PCP - General Internal Medicine 04/23/13 07/15/14 Cherie Ni MD PCP - General Internal Medicine 07/16/14 Lubna Valle MD PCP - General Internal Medicine 04/09/17 11/01/20 Bhanu Armendariz MD PCP - General Oncology/Hematology 11/02/20 documented as of this encounter
--- OUTSIDE RECORDS SUMMARY | 2025-06-26 06:56 | XMS_ITS | Encounter Summary ---
Author Organization [employer] [facility] Prior to 05/16/2024 Address [address] [facility] [place] [address] Care Team Providers Care Inventory Planner Name Role Phone Cherie Ni MD Primary Care Provider Un available Glory Rodriguez MD Primary Care Provider [phone] Senthil Singh MD Primary Care Provider Unavailab le Cherie Ni MD Primary Care Provider Un available Lubna Valle MD Primary Care Provider Unava ilBhanu June MD Primary Care Provider Panda aldrich Encounter Details Date Type Department Care Team Description 01/03/2010 Hospital Medical Records [address] [place] [id number] Domingo Faith MD Social History Tobacco Use [...] on filedocumented in this encounter Care Teams Inventory Planner Relationship Specialty Start Date End Date Cherie Ni MD PCP - General 01/13/1998 10/04/11 Glory Rodriguez MD [address] [place] [address] PCP - General Internal Medicine 10/05/11 04/22/13 Senthil Singh MD [address] [place] [address] PCP - General Internal Medicine 04/23/13 07/15/14 Cherie Ni MD PCP - General Internal Medicine 07/16/14 Lubna Valle MD [address] [place] [address] PCP - General Internal Medicine 04/09/17 11/01/20 Bhanu Armendariz MD [address] [place] [address] PCP - General Oncology/Hematology 11/02/20 documented as of this encounter
--- OUTSIDE RECORDS SUMMARY | 2025-06-26 06:56 | XMS_ITS | Encounter Summary ---
Author Organization [facility] [employer] [facility] Prior to 05/16/2024 Address [address] [facility] [place] [address] Care Team Providers Care Chronometer Tester Name Role Phone Senthil Singh MD Primary Care Provider Cherie Giles MD Primary Care Provider Un available Lubna Valle MD Primary Care Provider Unava Bhanu Andersen MD Primary Care Provider Unavai lable Reason for Visit * Reason Onset Date Comments Letter 04/23/2013 Encounter Details Date Type Department Care Team Description 04/23/2013 Telephone Medicine/Pediatrics - [address] [phone] Veronica Blue PA-C Letter Social History Tobacco Use Types Packs/Day Years Used Date Smoking Tobacco: Every Day Cigarettes 0.5 Smokeless Tobacco: Never Comments:Jul 2010 continues to smoke 1/2 PPD down to 3 cigs a day as of 01/31/2010 Alcohol Use Standard Drinks/Week Comments No 0 (1 standard drink = 0.6 oz pur e alcohol) Sex Assigned at Date Recorded Not on file documented as of this encounter Miscellaneous Notes * Telephone Encounter - Janelle Alvarez - 04/28/2013 2:09 PM EDT Pt checking status. I did inform her of noted below and she states if this can be done can we mail it to her at [address] [place] [address] Add verified-if any other questions please call pt at [phone] (home) * Telephone Encounter - Senthil Singh MD - 04/28/2013 1:58 PM EDT Is there any reason this patient with autoimmune hemolytic anemia should not get a flu shot? Thanks. 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 I do not see this dx on her list. Thanks. * Telephone Encounter - Shaina Haynes Rn - 04/23/2013 4:54 PM EDT Please review and advise, * Telephone Encounter - Veronica Blue P.A.-C. - 04/23/2013 4:26 PM EDT Defer to PCP. * Telephone Encounter - Shaina Haynes Rn - 04/23/2013 3:34 PM EDT sposke to pt She is changing her pcp to Dr Senthil Singh, she wants to continue to come to the [place] office, Dr Rodriguez is in [place] Please review message below and write letter, * Telephone Encounter - Alexa Bowman - 04/23/2013 3:26 PM EDT Letter requested for: Excuse from recieving Flu vaccine Reason for letter: patients employer is requiring that she have this letter to hand in Specific notations needed in body of letter: Pt will be excused from receiving the flu vaccine due to having a complex immune system (pt states she had 8 blood transfusions 3 years ago) and does not wish to receive this vaccine Date needed for completion: Sunday04-28-2013 When completed:Will pick-up when completed please call [phone] documented in this encounter Plan of Treatment Not on file documented as of this encounter Visit Diagnoses Not on filedocumented in this encounter Care Teams Chronometer Tester Relationship Specialty Start Date End Date Senthil Singh MD PCP - General Internal Medicine 04/23/13 07/15/14 Cherie Ni MD PCP - General Internal Medicine 07/16/14 Lubna Valle MD PCP - General Internal Medicine 04/09/17 11/01/20 Bhanu Armendariz MD PCP - General Oncology/Hematology 11/02/20 documented as of this encounter
--- OUTSIDE RECORDS SUMMARY | 2025-06-26 06:56 | XMS_ITS | Encounter Summary ---
Author Organization [facility] [employer] [facility] Prior to 05/16/2024 Address [address] [place] [address] Care Team Providers Care Operator Prefinish Name Role Phone Glory Rodriguez MD Primary Care Provider [phone] Senthil Singh MD Primary [facility] Provider [facility] Cherie Sinha MD Primary Care Provider Un available Lubna Valle MD Primary Care Provider Unava ilable Bhanu Armendariz MD Primary Care Provider Panda aldrich Encounter Details Date Type Department Care Team Description 08/12/2012 Editor Farm Journal Report Medical Records [address] [place] [address] Bhanu Armendariz MD Social History Tobacco Use [...] on filedocumented in this encounter Care Teams Operator Prefinish Relationship Specialty Start Date End Date Glory Rodriguez MD [address] [place] [phone] PCP - General Internal Medicine 10/05/11 04/22/13 Senthil Singh MD [address] [place] [address] PCP - General Internal Medicine 04/23/13 07/15/14 Cherie Ni MD [address] [place] [address] PCP - General Internal Medicine 07/16/14 04/08/17 Lubna Valle MD [address] [place] [address] PCP - General Internal Medicine 04/09/17 11/01/20 Bhanu Armendariz MD [address] [place] [address] PCP - General Oncology/Hematology 11/02/20 documented as of this encounter
--- OUTSIDE RECORDS SUMMARY | 2025-06-26 06:56 | XMS_ITS | Encounter Summary ---
Author Organization [facility] [employer] [facility] Prior to 05/16/2024 Address [address] [facility] [place] [address] Care Team Providers Care Fishing Vessel Mate Name Role Phone Senthil Singh MD Primary Care Provider Unavailab Cherie Sinha MD Primary Care Provider Un available Lubna Valle MD Primary Care Provider Unava ilable Bhanu Armendariz MD Primary Care Provider Panda aldrich Encounter Details Date Type Department Care Team Description 04/11/2014 Bilingual Call Center Representative Report Medical Records [address] [place] [address] Social History Tobacco Use Types Packs/Day Years [...] on filedocumented in this encounter Care Teams Fishing Vessel Mate Relationship Specialty Start Date End Date Senthil Singh MD PCP - General Internal Medicine 04/23/13 07/15/14 Cherie Ni MD PCP - General Internal Medicine 07/16/14 Lubna Valle MD PCP - General Internal Medicine 04/09/17 11/01/20 Bhanu Armendariz MD PCP - General Oncology/Hematology 11/02/20 documented as of this encounter
--- OUTSIDE RECORDS SUMMARY | 2025-06-26 06:56 | XMS_ITS | Encounter Summary ---
Author Organization [facility] [employer] [facility] Prior to 05/16/2024 Address [address] [facility] [place] [address] Care Team Providers Care Vice President Of Software Engineering Name Role Phone Glory Rodriguez MD Primary Care Provider [phone] Senthil Singh MD Primary Care Provider Unavailab Cherie Sinha MD Primary Care Provider Un available Lubna Valle MD Primary Care Provider Munava ilBhanu June MD Primary Care Provider Panda aldrich Encounter Details Date Type Department Care Team Description 12/02/2012 Tool And Die Supervisor Report Medical Records [address] [place] [address] Zoie Jhaveri MD Social History Tobacco Use [...] on filedocumented in this encounter Care Teams Vice President Of Software Engineering Relationship Specialty Start Date End Date Glory Rodriguez MD [address] [place] [address] PCP - General Internal Medicine 10/05/11 04/22/13 Senthil Singh MD [address] [place] [address] PCP - General Internal Medicine 04/23/13 07/15/14 Cherie Ni MD [address] [place] [address] PCP - General Internal Medicine 07/16/14 04/08/17 Lubna Valle MD [address] [place] [address] PCP - General Internal Medicine 04/09/17 11/01/20 Bhanu Armendariz MD [address] [place] [address] PCP - General Oncology/Hematology 11/02/20 documented as of this encounter
--- OUTSIDE RECORDS SUMMARY | 2025-06-26 06:56 | XMS_ITS | Encounter Summary ---
Author Organization [facility] [employer] [facility] Prior to 05/16/2024 Address [address] [facility] [place] [address] Care Team Providers Care High Lift Operator Name Role Phone Senthil Singh MD Primary Care Provider Unavailab Cherie Sinha MD Primary Care Provider Un available Lubna Valle MD Primary Care Provider Munava ilable Bhanu Armendariz MD Primary Care Provider Panda aldrich Encounter Details Date Type Department Care Team Description 06/02/2013 Emu Farm Worker Report Medical Records [address] [place] [address] Zoie Jhaveri MD Social History Tobacco Use [...] on filedocumented in this encounter Care Teams High Lift Operator Relationship Specialty Start Date End Date Senthil Singh MD PCP - General Internal Medicine 04/23/13 07/15/14 Cherie Ni MD PCP - General Internal Medicine 07/16/14 Lubna Valle MD PCP - General Internal Medicine 04/09/17 11/01/20 Bhanu Armendariz MD PCP - General Oncology/Hematology 11/02/20 documented as of this encounter
--- NOTE | 2025-06-26 07:50 | ED.SKABFB ---
HPI - Skin/Abscess/Foreign Bdy General Chief complaint: Skin/Abscess/Foreign Body Stated complaint: Wound Time Seen by Provider: 06/26/25 07:00 Source: patient Mode of arrival: ambulatory Limitations: no limitations History of Present Illness ED Provider: HPI narrative: The patient presents to the Emergency Department for evaluation of a recurrent abscess of the left buttock/perianal region. She reports a prior episode on 2024-03-05 that required incision and drainage with a two-day hospital admission. She noticed recurrence of a painful lump on Sunday (four days ago) and was evaluated by her primary care physician on Sunday, who advised ED evaluation. The area is painful, and she notes it ?hurts when I poop.? She vomited once on Sunday but denies further vomiting. She denies fevers, abdominal pain, or other systemic symptoms. Past medical history is notable only for hypertension; she specifically denies diabetes. Current medications include a high blood pressure medication (unspecified), a monthly Lupron injection, a cholesterol medication (unspecified), and a multivitamin. She reports normal urination and otherwise normal bowel function aside from pain with defecation. Related Data Home Medications ?Medication ?Instructions ?Recorded ?Confirmed anastrozole 1 mg tablet 1 mg PO DAILY 05/06/21 03/05/25 leuprolide 7.5 mg intramuscular 7.5 mg IM Q4W 12/13/21 03/05/25 syringe kit (Lupron Depot) atorvastatin 10 mg tablet (Lipitor) 10 mg PO DAILY 02/17/25 03/05/25 docusate sodium 100 mg capsule 200 mg PO BEDTIME 02/17/25 03/05/25 (Stool Softener) fluoxetine 20 mg capsule (Prozac) 80 mg PO DAILY 02/17/25 03/05/25 hydralazine 10 mg tablet 20 mg PO BID 02/17/25 03/05/25 metoprolol succinate 50 mg 50 mg PO DAILY 02/17/25 03/05/25 tablet,extended release 24 hr multivitamin with minerals 1 cap PO BEDTIME 02/17/25 03/05/25 bupropion HCl 100 mg tablet,12 hr 300 mg PO DAILY 03/05/25 03/05/25 sustained-release cholecalciferol (vitamin D3) 125 125 mcg PO BEDTIME 03/05/25 03/05/25 mcg (5,000 unit) tablet (Vitamin D3) Previous Rx's ?Medication ?Instructions ?Recorded amoxicillin 875 mg-potassium 1 tab PO BID #14 tabs 03/07/25 clavulanate 125 mg tablet oxycodone 5 mg tablet 5 mg PO Q4H PRN Pain, 03/07/25 Moderate(Pain Scale 4-6) #20 tabs amoxicillin 875 mg-potassium 1 tab PO BID 7 days #14 tabs 06/26/25 clavulanate 125 mg tablet docusate sodium 100 mg capsule 100 mg PO TID 7 days #21 caps 06/26/25 (Colace) oxycodone 10 mg tablet 10 mg PO BID PRN pain 5 days #10 06/26/25 tabs Allergies Allergy/AdvReac Type Severity Reaction Status Date / Time No Known Allergies Allergy Verified 06/26/25 06:37 Review of Systems Review of Systems: Review of Systems - Constitutional: Denies fever. - GI: Single episode of vomiting on Sunday; denies ongoing vomiting or abdominal pain; reports pain with defecation. - : Urination normal. - Respiratory: Breathing well; lungs clear to auscultation. - Skin: Reports recurrent swelling/redness of left buttock/perianal area. Constitutional: Constitutional: Reports as per [facility] Past Medical History Medical History Factor V Leiden Ductal carcinoma in situ (DCIS) of right breast Morbid (severe) obesity due to excess calories Anxiety Depression GERD (gastroesophageal reflux disease) Hyperlipidemia Hypertension Morbid obesity Surgical History Hx of excision of dermoid cyst Hx of lumpectomy Family History Family History Mother Hypertension Father Crohn disease Diabetes Hypertension Hyperlipidemia Obesity Sister Celiac disease Maternal Grandmother Melanoma Social History Social History Household Members: None Housing: House Do you presently have visiting nurse or other home services: No Alcohol intake: never Patient Tobacco Use Status: Former Tobacco user Smoked in Last 30 Days: No Use of substances other than those prescribed or required for medical reasons: No Substance Use Type: Marijuana Advance Directives: No Advance Directives Information Provided: No Patient : No service: No Current occupational status: employed 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 Abdomen: Nontender on palpation, bowel sounds present, obese Respiratory: Lungs clear to auscultation bilaterally. Cardiovascular: Heart is okay; good heartbeat. Alert oriented x4 Vital Signs: Vital Signs: Last Vital Signs Temp 97.1 F 06/26/25 10:02 Pulse 79 06/26/25 10:16 Resp 19 06/26/25 10:16 BP 124/68 06/26/25 10:16 Pulse Ox 94 06/26/25 10:16 O2 Del Method Room Air 06/26/25 10:16 BMI result Body Mass Index 49.9 Medications Administered Discontinued Medications Generic Name Dose Route Start Last Admin Trade Name Freq PRN Reason Stop Dose Admin Hydromorphone HCl 1 mg 06/26/25 07:29 06/26/25 08:04 Hydromorphone Hcl 1 Mg/Ml Syringe IVPUSH 06/26/25 07:30 1 mg ONCE ONE Administration Protocol Hydromorphone HCl 1 mg 06/26/25 09:41 06/26/25 10:16 Hydromorphone Hcl 1 Mg/Ml Syringe IVPUSH 06/26/25 09:42 1 mg ONCE ONE Administration Protocol Sodium Chloride 1,000 mls @ 999 mls/hr 06/26/25 07:30 06/26/25 09:52 Ns IV 06/26/25 08:30 Infused .Q1H1M EPIFANIO Infusion Ceftriaxone Sodium 2 gm/ 50 mls @ 100 mls/hr 06/26/25 08:48 06/26/25 09:38 Sodium Chloride IV 06/26/25 09:17 Infused ONCE ONE Infusion Iohexol 100 ml 06/26/25 09:01 06/26/25 09:02 Iohexol 350 Mg/Ml 100 Ml Infus..Btl IV 06/26/25 09:02 85 ml ONCE ONE Administration Ketorolac Tromethamine 15 mg 06/26/25 07:29 06/26/25 08:04 Ketorolac Tromethamine 15 Mg/Ml Vial IM 06/26/25 07:30 15 mg ONCE ONE Administration Lidocaine HCl 10 ml 06/26/25 10:15 06/26/25 10:39 Lidocaine Hcl 1 % 20 Ml Vial INFILTRATI 06/26/25 10:16 10 ml ONCE ONE Administration Medical Decision Making Medical Decision Making MDM Narrative: 7:56 AM 06/26/2025 (Dr. Govind Arora): Recurrent left perianal abscess. Plan: Obtain CT pelvis to delineate extent of abscess. Provide analgesia per ED protocol. Await imaging results to determine need for surgical or procedural intervention. 8:49 AM 06/26/2025 (Dr. Govind Arora): patient is meeting septic criteria, blood cultures obtained, at this point will initiate antibiotics 9:45 AM 06/26/2025 (Dr. Govind Arora): Dr. Wallis notified patient has perianal abscess 11:29 AM 06/26/2025 (Dr. Govind Arora): incision and drainage was performed by surgical provider, we will follow up their clinic on Sunday, patient we will be plan to discharge on antibiotics, pain medications, follow up Differential Diagnosis Differential Diagnoses: The differential diagnosis associated with the presentation includes Differential Diagnosis - Recurrent perianal abscess (primary): Most likely given the patient's history of prior abscess in the same location, current presentation with localized pain, swelling, and redness, and absence of systemic symptoms. - Perianal fistula: Considered due to recurrence of abscess; fistula formation is a common complication of perianal abscesses, especially with repeated episodes. - Pilonidal disease: Included as a possible cause of recurrent perianal/buttock abscess, though less likely given the location and absence of midline involvement. - Hidradenitis suppurativa: Considered due to recurrent abscesses in the perianal region, though no mention of other affected areas or chronicity. - Underlying malignancy: Less likely given the patient's age, lack of systemic symptoms, and physical exam findings, but should be considered in cases of recurrent or non-healing abscesses. - Infectious etiologies (e.g., atypical organisms): Possible, especially if abscesses are recurrent or do not respond to standard therapy; no specific risk factors identified in history. - Inflammatory bowel disease: Less likely in the absence of GI symptoms such as diarrhea, rectal bleeding, or abdominal pain, but should be considered if abscesses are recurrent or associated with other gastrointestinal complaints. Admission/Observation Consideration of admission/observation: Escalation of care including admission/observation considered Consult Healthcare Provider Management of the patient was discussed with: Medieval English Literature Professor (Dr. Wallis) Lab Data MDM Lab Attestation statement: I reviewed the patient's lab results. 06/26/25 08:06 06/26/25 08:06 Labs: Lab Results 06/26/25 06/26/25 Range/Units 08:06 10:51 WBC 14.5 H (4.8-10.8) X10*3/uL RBC 4.42 (4.20-5.50) X10*6/uL Hgb 12.5 (12.0-16.0) g/dl Hct 37.7 (37.0-47.0) % MCV 85.3 (80.0-98.0) fL MCH 28.3 (27.0-33.0) pg MCHC 33.2 (31.0-35.0) g/dl RDW 13.7 (11.0-16.0) % Plt Count 253 (160-400) X10*3/uL MPV 9.6 (9.4-12.3) fL Immature Gran % (Auto) 0.7 H (0.0-0.4) % Neut % (Auto) 82.8 H (45-73) % Lymph % (Auto) 9.5 L (20-40) % Murray % (Auto) 5.5 (2-11) % Eos % (Auto) 1.3 (0-4) % Baso % (Auto) 0.2 (0-2) % Lymph # (Auto) 1.4 (1.2-4.9) X10*3/uL Murray # (Auto) 0.8 (0.1-1.2) X10*3/uL Eos # (Auto) 0.2 (0.0-0.4) X10*3/uL Baso # (Auto) 0.0 (0.0-0.2) X10*3/uL Abs Immat Gran (auto) 0.10 H (0.00-0.03) X10*3/uL Absolute Neuts (auto) 12.0 H (2.0-8.3) x10*3/uL Absolute Nucleated RBC 0.000 (0.0-0.012) X10*3/uL Nucleated RBC % (auto) 0.0 (0.0-0.2) /100WBC Sodium 139 (135-145) mmol/L Potassium 3.5 (3.3-5.1) mmol/L Chloride 105 (96-108) mmol/L Carbon Dioxide 24 (22-29) mmol/L Anion Gap 14 (12-20) BUN 11 (9-16) mg/dL Creatinine 0.65 (0.5-1.4) mg/dL Estim Creat Clear Calc 149.7 Estimated GFR > 60 Random Glucose 280 H (60-115) mg/dL Lactic Acid 2.2 H* (0.5-2.0) mmol/L Lactic Acid F/U @ 2Hr 1.4 (0.5-2.0) mmol/L Calcium 9.3 (8.4-10.2) mg/dL Total Bilirubin 0.4 (0.0-1.0) mg/dL AST 22 (5-31) U/L ALT 21 (0-31) U/L Alkaline Phosphatase 110 (39-117) U/L Total Protein 7.1 (6.5-8.0) g/dL Albumin 4.0 (3.5-5.0) g/dL Radiology Impression Discussion of test interpretation with radiology: I have reviewed the radiologist's reading. (1. Left perianal abscess measuring 7.7 x 4.6 x 4.2 cm extending to the left anal verge. There may be a sinus tract in this location. No definite involvement above the levator sling or above the anal verge is present. 2. Remainder of the examination is normal.) Prescription Management I considered prescription management with: Pain Medication and Antibiotic Critical Care Time Critical Care Time Critical Care Time: Yes Total Critical Care Time: 45 Attestation: Time is exclusive of separately billable procedures. Time includes: direct patient care, patient reassessment, coordination of patient care, interpretation of data (laboratory data, pulse oximetry, arterial blood gases and chest xrays), review of patient's medical records, medical consultation and documentation of patient care. Procedures excluded from critical care time: central intravenous line placement and electrocardiography. Discharge Plan Discharge Clinical Impression: Perianal abscess Patient Disposition: Home, Self-Care Additional Instructions: continue with antibiotics starting tomorrow, surgical PA arranged for and nurse to see you for packing change on Sunday in the surgical office location provided, and then follow up with surgeons in a week Change outer dressing daily and as needed with dry gauze or abdominal pad followed by tape. ( after the first dressing change ) Tylenol 975 mg every 6 6 hours for the next 2 days oxycodone 10 mg twice daily as needed for pain you can cut in half and use 5 mg every 6 hours, Colace to prevent constipation any worsening issues concerns come back to the ER Prescriptions: New amoxicillin-pot clavulanate 875-125 mg tablet 1 tab PO BID 7 Days Qty: 14 0RF oxycodone 10 mg tablet 10 mg PO BID PRN (Reason: pain) 5 Days Qty: 10 0RF Rx Instructions: Partial Fill upon patient request. docusate sodium [Colace] 100 mg capsule 100 mg PO TID 7 Days Qty: 21 0RF No Action bupropion HCl 100 mg tablet sustained-release 12 hr 300 mg PO DAILY cholecalciferol (vitamin D3) [Vitamin D3] 125 mcg (5,000 unit) Tablet 125 mcg PO BEDTIME oxycodone 5 mg Tablet 5 mg PO Q4H PRN (Reason: Pain, Moderate(Pain Scale 4-6)) Qty: 20 0RF Rx Instructions: Partial Fill upon patient request. amoxicillin-pot clavulanate 875-125 mg tablet 1 tab PO BID Qty: 14 0RF anastrozole 1 mg tablet 1 mg PO DAILY hydralazine 10 mg tablet 20 mg PO BID Lupron Depot 7.5 mg syringe kit 7.5 mg IM Q4W metoprolol succinate 50 mg tablet extended release 24 hr 50 mg PO DAILY atorvastatin [Lipitor] 10 mg tablet 10 mg PO DAILY docusate sodium [Stool Softener] 100 mg capsule 200 mg PO BEDTIME fluoxetine [Prozac] 20 mg capsule 80 mg PO DAILY multivitamin with minerals Capsule 1 cap PO BEDTIME Referrals: Bhanu Armendariz MD [Primary Care Provider, Internal Medicine] Anam Wallis MD [Physician, General Surgery] - 1 week Print Language: Indonesian
[2025-06-26 08:17] LABS: MANUAL DIFF FLAG NO
[2025-06-26 08:27] LABS: Hematocrit 37.7 % (37.0-47.0); Hemoglobin 12.5 g/dl (12.0-16.0); Imm Gran Abs Auto 0.10 X10*3/uL (0.00-0.03); Imm Gran Pct Auto 0.7 % (0.0-0.4); Lymphocytes Absolute Auto 1.4 X10*3/uL (1.2-4.9); Mean Corpuscular HGB Conc 33.2 g/dl (31.0-35.0); Mean Corpuscular Hemoglobin 28.3 pg (27.0-33.0); Mean Corpuscular Volume 85.3 fL (80.0-98.0); NRBC Abs Auto 0.000 X10*3/uL (0.0-0.012); NRBC Pct Auto 0.0 /100WBC (0.0-0.2); Platelet Count 253 X10*3/uL (160-400); Red Blood Count 4.42 X10*6/uL (4.20-5.50); White Blood Count 14.5 X10*3/uL (4.8-10.8)
[2025-06-26 08:37] LABS: Alanine Aminotransferase 21 U/L (0-31); Albumin Level 4.0 g/dL (3.5-5.0); Alkaline Phosphatase 110 U/L (39-117); Anion Gap 14 (12-20); Aspartate Amino Transferase 22 U/L (5-31); Blood Urea Nitrogen 11 mg/dL (9-16); Calcium 9.3 mg/dL (8.4-10.2); Carbon Dioxide 24 mmol/L (22-29); Chloride 105 mmol/L (96-108); Creatinine Clr Calc Pharmacy 149.7; Estimated Glomerular Filt Rate > 60; Potassium 3.5 mmol/L (3.3-5.1); Sodium 139 mmol/L (135-145); Total Protein 7.1 g/dL (6.5-8.0)
[2025-06-26] MEDS: iohexoL 350 MG/ML 100 ML INFUS..BTL IV (09:02)
[2025-06-26 10:02] VITALS: BP 111/65; PULSE 77; RESP 18; TEMP 36.2; O2SAT 95
[2025-06-26 10:16] VITALS: BP 124/68; PULSE 79; RESP 19; O2SAT 94
[2025-06-26 10:16] LABS: Reflex Lactate? Lactic Acid Added
--- NOTE | 2025-06-26 10:31 | PC.NURSE ---
Surgery at bedside at 1031.
[2025-06-26] MEDS: Lidocaine HCl 1 % 20 ML VIAL 10 ML INFILTRATI (10:39)
--- NOTE | 2025-06-26 11:03 | PM.CNGS ---
History of Present Illness Consult details Consult date: 06/26/25 Reason for consult: other (perirectal abscess) Requesting physician: Govind Arora Narrative: 49 year old female with PMH of obesity, GERD, hypertension, hyperlipidemia who presented to the ED with complaints of pain and perirectal swelling. She reports the pain began Sunday and then she felt a lump a day later. She discussed this with her PCP Sunday who recommended evaluation in the ED. She came last night however she reports it was busy and did not want to wait. She therefore came back early today for evaluation. She reports severe pain and is unable to sit/lay on her backside. She denies fevers, chills, diarrhea, chest pain, shortness of breath, change in stools, drainage from the area. She did have some nausea earlier this week. She had a similar episode in February 2025 at the same site and this was drained in the ED and was admitted for IV abx. She is not a diabetic. Work up in the ED included CBC, BMP, LFTs which was significant for leukocytosis of 14.5. She had a lactic acidosis of 2.2. CT scan pelvis showed a large left perianal abscess measuring 7.7 x 4.6 x 4.2 cm extending to the left anal verge, with possible sinus tract in this location. General surgery was therefore consulted. Review of Systems Review of Systems: Yes all other systems are reviewed and are negative [facility] Past Medical History Medical History Factor V Leiden Ductal carcinoma in situ (DCIS) of right breast Morbid (severe) obesity due to excess calories Anxiety Depression GERD (gastroesophageal reflux disease) Hyperlipidemia Hypertension Morbid obesity Family History Family History Mother Hypertension Father Crohn disease Diabetes Hypertension Hyperlipidemia Obesity Sister Celiac disease Maternal Grandmother Melanoma Surgical History Surgical History Hx of excision of dermoid cyst Hx of lumpectomy Social History Social History Household Members: None Housing: House Do you presently have visiting nurse or other home services: No Alcohol intake: never Patient Tobacco Use Status: Former Tobacco user Substance Use Type: Marijuana Advance Directives: No Advance Directives Information Provided: No service: No Current occupational status: employed 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 Meds Allergies Allergy/AdvReac Type Severity Reaction Status Date / Time No Known Allergies Allergy Verified 06/26/25 06:37 Home Medications ?Medication ?Instructions ?Recorded ?Confirmed ?Last Taken ?Type anastrozole 1 mg tablet 1 mg PO DAILY 05/06/21 03/05/25 03/05/25 History leuprolide 7.5 mg intramuscular 7.5 mg IM Q4W 12/13/21 03/05/25 02/17/25 History syringe kit (Lupron Depot) atorvastatin 10 mg tablet (Lipitor) 10 mg PO DAILY 02/17/25 03/05/25 03/05/25 History docusate sodium 100 mg capsule 200 mg PO BEDTIME 02/17/25 03/05/25 03/04/25 History (Stool Softener) fluoxetine 20 mg capsule (Prozac) 80 mg PO DAILY 02/17/25 03/05/25 03/05/25 History hydralazine 10 mg tablet 20 mg PO BID 02/17/25 03/05/25 03/05/25 History metoprolol succinate 50 mg 50 mg PO DAILY 02/17/25 03/05/25 03/05/25 History tablet,extended release 24 hr multivitamin with minerals 1 cap PO BEDTIME 02/17/25 03/05/25 03/04/25 History bupropion HCl 100 mg tablet,12 hr 300 mg PO DAILY 03/05/25 03/05/25 03/05/25 History sustained-release cholecalciferol (vitamin D3) 125 125 mcg PO BEDTIME 03/05/25 03/05/25 03/04/25 History mcg (5,000 unit) tablet (Vitamin D3) Physical Exam Vital Signs: Vital Signs: Last Vital Signs Temp 97.1 F 06/26/25 10:02 Pulse 79 06/26/25 10:16 Resp 19 06/26/25 10:16 BP 124/68 06/26/25 10:16 Pulse Ox 94 06/26/25 10:16 O2 Del Method Room Air 06/26/25 10:16 BMI result Body Mass Index 49.9 Const: General: comfortable, no acute distress and alert Nutritional Appearance: obese Orientation/consciousness: patient oriented x3 Resp: Effort & Inspection: normal respiratory effort, able to speak in complete sentences and not tachypneic Skin: Other: rectal exam - large fluctuance around 5cm of left perirectal area with localized erythema and induration extending to the external sphincter, area very tender and thorough exam limited due to patient discomfort, no evidence of sinus tracking, no drainage Neuro: General: patient oriented x3 and moves all extremities Results Labs 06/26/25 08:06 06/26/25 08:06 Labs: Abnormal lab results 06/26/25 Range/Units 08:06 WBC 14.5 H (4.8-10.8) X10*3/uL Immature Gran % (Auto) 0.7 H (0.0-0.4) % Neut % (Auto) 82.8 H (45-73) % Lymph % (Auto) 9.5 L (20-40) % Abs Immat Gran (auto) 0.10 H (0.00-0.03) X10*3/uL Absolute Neuts (auto) 12.0 H (2.0-8.3) x10*3/uL Random Glucose 280 H (60-115) mg/dL Lactic Acid 2.2 H* (0.5-2.0) mmol/L Short CBC 06/26/25 Range/Units 08:06 WBC 14.5 H (4.8-10.8) X10*3/uL Hgb 12.5 (12.0-16.0) g/dl Hct 37.7 (37.0-47.0) % Plt Count 253 (160-400) X10*3/uL BMP 06/26/25 08:06 Sodium 139 Potassium 3.5 Chloride 105 Carbon Dioxide 24 BUN 11 Creatinine 0.65 Calcium 9.3 Liver Function 06/26/25 Range/Units 08:06 Total Bilirubin 0.4 (0.0-1.0) mg/dL AST 22 (5-31) U/L ALT 21 (0-31) U/L Alkaline Phosphatase 110 (39-117) U/L Albumin 4.0 (3.5-5.0) g/dL All other labs normal. Imaging CT scan - pelvis: report reviewed and image reviewed Additional studies: labs reviewed Assessment and Plan (1) Perianal abscess: Status: Acute Plan 49 year old female with PMH of obesity, GERD, hypertension, hyperlipidemia who presented to the ED with complaints of pain and perirectal swelling found to have left perirectal abscess on exam, confirmed on CT. There was question of a sinus tract from the abscess cavity but this is difficult to assess due to the patient's discomfort with the abscess. The collection is very superficial and bedside I&D was recommended. Please see procedure note below. Following the procedure, patient feels significantly improved. Her surrounding cellulitis appears limited to the abscess site and if her repeat lactic acid is normal and she remains hemodynamically stable, she can be discharged to home on oral antibiotics with follow up in the general surgery office in 1 week for wound check. She will also follow up in the office with our RN for packing change on Sunday, this will be arranged for her. Discussed with the ED provider. Procedures Date of Service Date of Service: 06/26/25 Abscess I/D Consent for Procedure: Elective - informed consent obtained Site: paxton-rectal Side (if applicable): left Sedation/analgesia: other (premedicated with IV dilaudid) Anesthetic used: lidocaine 1% (10cc) Technique: incised with #11 blade Amount of fluid (mL): 50 Additional comments: Patient was placed in left lateral decubitus position. The site of procedure was confirmed by the patient. After assuring informed consent, the skin was prepped with betadine. 10cc 1% lidocaine local anesthesia was then infiltrated over the central portion of the fluctuance. An incision was made with an 11 blade measuring approximately 3.5 cm in the same location. This was deepened into the subcutaneous tissue. A pocket was identified and a large amount of purulent fluid was evacuated. A culture was obtained. The area was then probed digitally and the area gently massaged to ensure any loculations were broken up and the entire collection was drained. No further fluctuance was appreciated. Pressure was held with sterile gauze until hemostasis ensured. The cavity was then packed with saline soaked london roll and dressed with fluffs and abd dressing and tape. The patient tolerated the procedure very well. She was instructed on local wound care and will return in 1 week for wound examination following discharge.
[2025-06-26 11:23] LABS: ~Lactic Acid-LAB USE ONLY 1.4 mmol/L (0.5-2.0)
[2025-06-26 11:55] VITALS: BP 124/68; PULSE 79; RESP 19; TEMP 36.6; O2SAT 94
--- OUTSIDE RECORDS SUMMARY | 2025-06-26 12:45 | XMS_ITS ---
Author Organization Bhanu Armendariz III, MD Address [address] [place] [address] [address] [facility] [facility] [place] [address] Care Team Providers Care Push Bench Operator Helper Name Role Phone Bhanu Armendariz III, MD Primary Care Provider [phone] Bhanu Armendariz III [facility] REASON FOR VISIT Follow up Social History Sex Assigned At : Social History Observation Description Sex Assigned At Female Encounters Encounter Location Date Provider Diagnosis Bhanu Armendariz III, MD [address] [place] [address] [address] [facility] [place] [address] 06/26/2025 Bhanu Armendariz Plan Of Treatment Next Appt Details Provider Name:Bhanu Armendariz , 07/02/2025 10:15:00 AM, [address] [place] [address] [place], [address], Provider Name:Bhanu Armendariz , 03/08/2026 02:00:00 PM, [address] [place] [address] [place], [address], Progress Notes * Alexa ROSSDOB:[birth year] (49 yo F)Acc No.[id number]:06/26/2025 Progress Notes Patient: Pardeep SIMAlexa FERRER Provider: Janee Armendariz MD :1975 A ge:49 Y S ex:Female Date:06/26/2025 Address:[address] [place] , [id number] Pcp:Bhanu Armendariz III, MD Subjective: * Chief [...] Armendariz MD Date: 08/27/2024 Generated for Beny calhoun/Micki/Yesseniaransmitting on: 08/27/2024 06:55 AM EST
== END 2025-06-26 12:15 | disposition home or self-care (01) ==
PROVIDERS: Emergency Provider Emergency Medicine; PCP Internal Medicine Medical Oncology
DX: K61.0 Anal abscess (principal); I10 Essential (primary) hypertension; E78.5 Hyperlipidemia, unspecified; Z87.891 Personal history of nicotine dependence; Z79.899 Other long term (current) drug therapy
CPT/HCPCS: 36415; 46050; 72193; 80053; 83605; 85025; 87040; 87070; 87205; 96361; 96365; 96372; 96375; 96376; 99284; J0696; J1171; J1885; J2003; Q9967

== ENCOUNTER → 2025-06-26 06:48 | Outpatient (BNV) | payer OTHER, SELFPAY | PROVIDERS: Emergency Provider Emergency Medicine; PCP Internal Medicine Medical Oncology; Visit Provider Physician Assistant Surgical | DX: K61.0 Anal abscess (principal) | CPT/HCPCS: 46050; 99284 ==

== ENCOUNTER → 2025-06-26 07:29 | Outpatient (BNV) | payer OTHER, SELFPAY | PROVIDERS: Emergency Provider Emergency Medicine; PCP Internal Medicine Medical Oncology; Visit Provider Radiology Diagnostic Radiology | DX: L02.215 Cutaneous abscess of perineum (principal); K61.0 Anal abscess | CPT/HCPCS: 72193 ==

== ENCOUNTER 2025-07-02 09:51 | Outpatient (AMB) | payer OTHER, SELFPAY ==
--- OUTSIDE RECORDS SUMMARY | 2024-11-24 04:00 | XMS_ITS ---
Author Organization [facility] Address [address] [place] [address] Care Team Providers Care Superintendent Mechanical Name Role Phone Marcello WILSON, Bhanu Primary Care Provider Unavailab blanca Tian Mia Ross [phone] Encounters Encounter Location Date Provider Diagnosis [address] [address] 11/24/2024 Mia Tian Plan Of Treatment Next Appt Details Provider Name:Mia Tian , 07/23/2025 08:00:00 AM, [address] [place], [address], Progress Notes * Alexa ROSSDOB:[birth year] (49 yo F)Acc No.[id number]:11/24/2024 Progress Note Patient: Alexa LEMUS Provider: Dandre Tian DPM :1975 A ge:49 Y S ex:Female Date:11/24/2024 Address:[facility] [address] [id number] Pcp:Bhanu Armendariz MD Subjective: * Chief Complaints: [...] TONE Date: 0 11/24/2024 Generated for Beny calhoun/Micki/Jaleesa on: 1 09/02/2024 12:04 PM EST
--- OUTSIDE RECORDS SUMMARY | 2024-12-01 03:00 | XMS_ITS ---
Author Organization [facility] Address [address] [place] [address] Care Team Providers Care Special Forces Senior Sergeant Name Role Phone Marcello WILSON, Bhanu Primary Care Provider Unavailab blanca Tian Mia Unavailable [phone] Inman Encounters Encounter Location Date Provider Diagnosis [address] [address] 12/01/2024 Mia Tian Plan Of Treatment Next Appt Details Provider Name:Mia Tian , 07/23/2025 08:00:00 AM, [address] [place] [address], [address], Progress Notes * Alexa ROSSDOB:[birth year] (49 yo F)Acc No.[id number]:12/01/2024 Progress Note Patient: Pardeep Alexa MERCHANT Provider: Dandre Tian DPM :1975 A ge:49 Y S ex:Female Date:12/01/2024 Address:[facility] [address] [place] Pcp:Bhanu Armendariz MD Subjective: * Chief Complaints: * [address] Inman. * Medical History: Objective: * Vitals: Assessment: Plan: * Treatment: * Images: * The named appointment provid er may or may not be the originator of this progress note, and it is not deemed complete until electronically signed by the appointment provider. Sign off status: Pending * Provider: Dandre Tian DPM Date: 0 12/01/2024 Generated for Beny Akabr/Jaleesa on: 1 09/02/2024 12:03 PM EST
--- OUTSIDE RECORDS SUMMARY | 2025-03-05 07:22 | XMS_ITS ---
Author Organization Bhanu Armendariz III, MD Address [address] [place] [address] [place] [address] Care Team Providers Care Paperhanger Name Role Phone Bhanu Armendariz III, MD Primary Care Provider Dr. Bhanu Armendariz III [facility] REASON FOR VISIT FYI Social History Sex Assigned At : Social History Observation Description Sex Assigned At Female Encounters Encounter Location Date Provider Diagnosis Bhanu Armendariz III, MD [address] [place] [address] [place] [address] 03/05/2025 Bhanu Armendariz Plan Of Treatment Next Appt Details Provider Name:Bhanu Armendariz , 08/14/2025 04:00:00 PM, [address] [place] [address] [place] [facility], [address], Provider Name:Bhanu Armendariz , 03/08/2026 02:00:00 PM, [address] [place] [address] [place], [address], Progress Notes * Alexa ROSSDOB:[birth year] (49 yo F)Acc No.[id number]:03/05/2025 Patient: Alexa LEMUS :1975 A ge:49 Y S ex:Female Address:[address] [place] [address] * true * Date: Generated for Printi ng/Faxing/eTransmitting on: 1 09/02/2024 12:03 PM EST
--- OUTSIDE RECORDS SUMMARY | 2025-03-06 04:07 | XMS_ITS ---
Author Organization Bhanu Armendariz III, MD Address [address] [place] [address] [place] [address] Care Team Providers Care Machine Heel Builder Name Role Phone Bhanu Armendariz III, MD Primary Care Provider Dr. Bhanu Armendariz III [facility] REASON FOR VISIT FYI Social History Sex Assigned At : Social History Observation Description Sex Assigned At Female Encounters Encounter Location Date Provider Diagnosis Bhanu Armendariz III, MD [address] [place] [address] [place] [address] 03/06/2025 Bhanu Armendariz Plan Of Treatment Next Appt Details Provider Name:Bhanu Armendariz , 08/14/2025 04:00:00 PM, [address] [place] [address] [facility] [place] [place], [address], Provider Name:Bhanu Armendariz , 03/08/2026 02:00:00 PM, [address] [place] [address] [place], [address], Progress Notes * Alexa ROSSDOB:[birth year] (49 yo F)Acc No.[id number]:03/06/2025 Patient: Alexa LEMUS :1975 A ge:49 Y S ex:Female Address:[address] [place] [address] * true * Date: Generated for Printi ng/Faxing/eTransmitting on: 1 09/02/2024 12:05 PM EST
--- OUTSIDE RECORDS SUMMARY | 2025-03-06 07:15 | XMS_ITS ---
Author Organization Bhanu Armendariz III, MD Address [address] [place] [address] [place] [address] Care Team Providers Care Assistant Press Operator Offset Name Role Phone Bhanu Armendariz III, MD Primary Care Provider Dr. Bhanu Armendariz III [facility] [phone] REASON FOR VISIT Telehealth Social History Sex Assigned At : Social History Observation Description Sex Assigned At Female Encounters Encounter Location Date Provider Diagnosis Bhanu Armendariz III, MD [address] [place] [address] [address] [place] [facility] [place] [address] 03/06/2025 Bhanu Armendariz Plan Of Treatment Next Appt Details Provider Name:Bhanu Armendariz , 08/14/2025 04:00:00 PM, [address] [place] [address] [place], [address], Provider Name:Bhanu Armendariz , 03/08/2026 02:00:00 PM, [address] [place] [address] [place], [phone], Progress Notes * Alexa ROSSDOB:[birth year] (49 yo F)Acc No.[id number]:03/06/2025 Patient: Alexa LEMUS Provider: Janee Armendariz MD [...] MD Date: 0 03/06/2025 Generated for Beny calhoun/Micki/Thomitting on: 09/02/2024 12:03 PM EST
--- OUTSIDE RECORDS SUMMARY | 2025-03-11 04:00 | XMS_ITS ---
Author Organization Bhanu Armendariz III, MD Address [address] [place] [address] Care Team Providers Care Drum Operator Name Role Phone Bhanu Armendariz III, MD Primary Care Provider [phone] Dr. Bhanu Armendariz III [facility] [phone] Allergies Allergen (clinical drug ingredient) Drug/Non Drug Allergy documented on EMR Reaction Allergy Type Onset Date Status No Known Drug Allergy Unknown Drug Allergy Active No Known Food Allergy Unknown Drug Allergy Active REASON FOR VISIT Hospital Follow up, abscess left buttock Medications Medication SIG (Take, Route, Frequency, Duration) Notes Start Date End Date Status Zoloft 100 MG 1 tablet Orally Once a day Active Multi Vitamin Active diazePAM 5 MG 1 tablet as needed O rally every 8 hours x 3 prior to surgery 06/24/2019 Active Atorvastatin Calcium 10 MG TAKE 1 TABLET BY MOUTH EVERY DAY Active Metoprolol Succinate ER 50 MG TAKE 1 TABLET BY MOUTH TWICE A DAY Active Amoxicillin-Pot Clavulanate 875-125 MG Oral Activ e Zepbound 7.5 MG/0.5ML 0.5 mL Subcutaneou s once a week 03/04/2025 Active Anastrozole 1 MG 1 tablet Orally Once a day Active hydrALAZINE HCl 10 MG TAKE 2 TABLETS BY MOUTH FOUR TIMES A DAY 90 DAYS Active metroNIDAZOLE 500 MG [address] ee times a day 05/02/2021 Active Sertraline HCl 100 MG 2 tablet Orally at bedtime Active ARIPiprazole 5 MG 1 tablet Orally Once a day Active Doxepin HCl 6 MG 1 tablet at bedtime Orally Once a day Active Lupron Depot (1-Month) 7.5 MG as directed Intramuscular Ac tive oxyBUTYnin Chloride 5 MG 1 tablet Orally Twice a day Active Social History Tobacco Use: Social History Observation Description Date Details (start date - stop date) Former Smoker NA - NA Sex Assigned At : Social History Observation Description Sex Assigned At Female Tobacco Control (Standard) Question Answer Notes Tobacco use: Former smoker How long has it been since you last smoked? 5-10 years Additional Findings: Tobacco non-user Ex-cigaret te smoker Vital Signs Temperature 97.2 degrees Fahrenheit 03/11/20 25 Blood pressure systolic 145 mm Hg 03/11/20 25 Blood pressure diastolic 90 mm Hg 025 Heart Rate 69 /min 03/11/2025 Height 66 in 03/11/2025 Weight 287 lbs 03/11/2025 BMI 46.32 kg/m2 03/11/2025 Encounters Encounter Location Date Provider Diagnosis Bhanu Armendariz III, MD [address] [place] [address] [facility] [address] 03/11/2025 Bhanu Armendariz Invasive ductal carcinoma of right breast C50.911 ; Perianal abscess K61.0 ; Factor V Leiden mutation D68.51 ; Former smoker Z87.891 ; Acquired hypothyroidism E03.9 ; Mixed hyperlipidemia E78.2 ; Obstructive sleep apnea G47.33 and Acquired hemolytic anemia, unspecified D59.9 Assessments Encounter Date Diagnosis (ICD Code) Assessment Notes Treat ment Notes Treatment Clinical Notes 03/11/2025 Invasive ductal carcinoma of right breast (ICD-10 - C50.911) Her adjuvant endocrine therapy was continued. There is no sign of relapse at this time. There is no sign of a new primary. She has been compliant with her therapy and appointments. She was soon complete her fifth year of adjuvant endocrine therapy.She is taking anastrozole 1 mg daily. 03/11/2025 Perianal abscess (ICD-10 - K61.0) She will finish the amoxicillin and return to normal life. Followup will be at the end of next week. 03/11/2025 Factor V Leiden mutation (ICD-10 - D68.51) She has had no episodes of blood clotting. Her father has a Leiden mutation and one episode of clotting. 03/11/2025 Former smoker (ICD-1 0 - Z87.891) She has a strategy mapped out to prevent relapse in times of stress and illness. 03/11/2025 Acquired hypothyroidism (ICD-10 - E03.9) She was continued on current therapy. Blood work will be done in detail in the near future at the weight loss program at [facility]. 03/11/2025 Mixed hyperlipidemia (ICD-10 - E78.2) Current medication was continued. Comprehensive blood work was ordered which will continue. A fasting lipid profile. She is asymptomatic. 03/11/2025 Obstructive sleep apnea (ICD-10 - G47.33) 03/11/2025 Acquired hemolytic anemia, unspecified (ICD-10 - D59.9) She is not jaundiced. She does not appear anemic. Comprehensive blood work has been ordered. This problem has not relapsed. Plan Of Treatment Medication Medication Name Sig Start Date Stop Date Notes Zoloft 100 MG 1 tablet Orally Once a day Multi Vitamin diazePAM 5 MG 1 tablet as needed O rally every 8 hours x 3 prior to surgery 06/24/2019 Atorvastatin Calcium 10 MG TAKE 1 TABLET BY MOUTH EVERY DAY Metoprolol Succinate ER 50 MG TAKE 1 TAB LET BY MOUTH TWICE A DAY Amoxicillin-Pot Clavulanate 875-125 MG Oral Zepbound 7.5 MG/0.5ML 0.5 mL Subcutaneou s once a week 03/04/2025 Anastrozole 1 MG 1 tablet Orally Once a day hydrALAZINE HCl 10 MG TAKE 2 TABLETS BY MOUTH FOUR TIMES A DAY 90 DAYS metroNIDAZOLE 500 MG 1 tablet Orally Thr ee times a day 05/02/2021 Sertraline HCl 100 MG 2 tablet Orally at bedtime ARIPiprazole 5 MG 1 tablet Orally Once a day Doxepin HCl 6 MG 1 tablet at bedtime Orally Once a day Lupron Depot (1-Month) 7.5 MG as directed Intramuscular oxyBUTYnin Chloride 5 MG 1 tablet Orally Twice a day Next Appt Details Follow Up: 1 Week, Reason: O V Provider Name:Bhanu Armendariz , 08/14/2025 04:00:00 PM, [address] [place] [address] [address], [place], [address], Provider Name:Bhanu Armendariz , 03/08/2026 02:00:00 PM, [address] [place] [address] [address], [place], [address], Progress Notes * Alexa ROSSDOB:[birth year] (49 yo F)Acc No.[id number]:03/11/2025 Patient: Alexa LEMUS Provider: Janee Armendariz MD :1975 A ge:49 Y S ex:Female Date:03/11/2025 [facility] [id number] Pcp:Bhanu Armendariz III, MD Subjective: * Chief Complaints: * H ospital Follow upAbscess left buttock * HPI: C OVID-19 Screening: L ast week she was hospitalized with the verge over 6 cm abscess in her left buttock. Imaging showed no conneection to the rectum. It was drained and she was placed on an antibiotic. She has done quite well and is now pain free. He was given permission to return to the activities of daily life including swimming.She was discharged in [facility] on March 07 2025. She will continue her weight loss program. Questions H ave you had any new onset fever, chills, cough, congestion, sore throat, shortness of breath, muscle aches? N o * ROS: G eneral/Constitutional: pain o nly normal aches and pains. C hills d enies.?Fatigue a dmits. F ever d enies. E NT: Decreased hearing d enies. R espiratory: Cough d enies. C ardiovascular: Chest pain with exertion d enies. D yspnea on exertion?denies. S hortness of breath d enies. G astrointestinal: Constipation o ccasional. D ecreased appetite d enies. D iarrhea d enies. H eartburn o ccasional. N ausea d enies. R ectal bleeding d enies. V omiting d enies. H ematology: bruising d enies. p etechiae d enies. S wollen glands n one have been noted. G enitourinary: Frequent urination d enies. M usculoskeletal: Muscle aches d enies. P ainful joints d enies. S ciatica [...] dditional Findings: Tobacco non-user E x-cigarette smoker S he was born [place], [place] and is single. 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 Smoking: No history of smoking. * Medications: T akinghydrALAZINE HCl 10 MG Tablet TAKE 2 TABLETS BY MOUTH FOUR TIMES A DAY 90 DAYS Metoprolol Succinate ER 50 MG Tablet Extended Release 24 Hour TAKE 1 TABLET BY MOUTH TWICE A DAY Atorvastatin Calcium 10 MG Tablet TAKE 1 TABLET BY MOUTH EVERY DAY diazePAM 5 MG Tablet 1 tablet as needed Orally every 8 hours x 3 prior to surgery Multi Vitamin Zoloft 100 MG Tablet 1 tablet Orally Once a day Lupron Depot (1- Month) 7.5 MG Kit as directed Intramuscular Doxepin [...] Tablet 1 tablet Orally Once a day Zepbound 7.5 MG/0.5ML Solution Auto-injector 0.5 mL Subcutaneous once a week , stop date 08/30/2025moxicillin- Pot Clavulanate 875-125 MG Tablet Oral Medication List reviewed and reconciled with the patientTaking hydrALAZINE HCl 10 MG Tablet TAKE 2 [...] 1 tablet Orally Once a day Taking Zepbound 7.5 MG/0.5ML Solution Auto-injector 0.5 mL Subcutaneous once a week , stop date 08/30/2025Taking Amoxicillin-Pot Clavulanate 875-125 MG Tablet Oral Medication List reviewed and reconciled with the patient * Allergies: N o Known Drug AllergyNo Known Food Allergyno[Allergies Verified] Objective: * Vitals: H t: 66, Wt: 287, BMI:46.32, BP: 145/90, HR: 69, Temp: 97.2, Wt-k.18. * Examination: G eneral Examination: GENERAL APPEARANCE: [...] LUNGS: c lear to auscultation . BREASTS: N ot examined. ABDOMEN: b owel sounds normal, no ascites, no organomegaly, no mass: morbid obesity. RECTAL EXAM: T he abscess has resolved, anus was normal, She Chaim was .. MUSCULOSKELETAL: e xtremities unremarkable, no clubbing, cyanosis or edema. PERIPHERAL PULSES: n ormal. NEUROLOGIC: a lert and oriented, cranial nerves 2-12 grossly intact, deep tendon reflexes 2+ symmetrical, motor strength normal upper and lower extremities, sensory exam intact. PSYCH: a lert, oriented. Assessment: * Assessment: 1. P erianal abscess - K61.0 (Primary) N otes :She will finish the amoxicillin and return to normal life. Followup will be at the end of next week. 2 . I nvasive ductal carcinoma of right breast - C50.911 N otes :Her adjuvant endocrine therapy was continued. There is no sign of relapse at this time. There is no sign of a new primary. She has been compliant with her therapy and appointments. She was soon complete her fifth year of adjuvant endocrine therapy.She is taking anastrozole 1 mg daily. 3 . F actor V Leiden mutation - D68.51 N otes :She has had no episodes of blood clotting. Her father has a Leiden mutation and one episode of clotting. 4 . F ormer smoker - Z87.891 N otes :She has a strategy mapped out to prevent relapse in times of stress and illness. 5 . A cquired hypothyroidism - E03.9 S pecify :she will N otes :She was continued on current therapy. Blood work will be done in detail in the near future at the weight loss program at [facility]. 6 . M ixed hyperlipidemia - E78.2 N otes :Current medication was continued. Comprehensive blood work was ordered which will continue. A fasting lipid profile. She is asymptomatic. 7 . O bstructive sleep apnea - G47.33 8 . A cquired hemolytic anemia, unspecified - D59.9 N otes :She is not jaundiced. She does not appear anemic. Comprehensive blood work has been ordered. This problem has not relapsed. Plan: * Treatment: 2. I nvasive ductal carcinoma of right breast Continue diazePAM Tablet, 5 MG, 1 tablet as needed, Orally, every 8 hours x 3 prior to surgery;?Continue Multi Vitamin; C ontinue Zoloft Tablet, 100 MG, 1 tablet, Orally, Once a day; C ontinue Lupron Depot (1-Month) Kit, 7.5 MG, as directed, Intramuscular; C ontinue Doxepin HCl Tablet, 6 MG, 1 tablet at bedtime, Orally, Once a day; C ontinue ARIPiprazole Tablet, 5 MG, 1 tablet, Orally, Once a day; C ontinue Sertraline HCl Tablet, 100 MG, 2 tablet, Orally, at bedtime;?Continue oxyBUTYnin Chloride Tablet, 5 MG, 1 tablet, Orally, Twice a day; C ontinue metroNIDAZOLE Tablet, 500 MG, 1 tablet, Orally, Three times a day; C ontinue Anastrozole Tablet, 1 MG, 1 tablet, Orally, Once a day; C ontinue Zepbound Solution Auto-injector, 7.5 MG/0.5ML, 0.5 mL, Subcutaneous, once a week. 3. O thers Continue hydrALAZINE HCl Tablet, 10 MG, TAKE 2 TABLETS BY MOUTH FOUR TIMES A DAY 90 DAYS; C ontinue Metoprolol Succinate ER Tablet Extended Release 24 Hour, 50 MG, TAKE 1 TABLET BY MOUTH TWICE A DAY; C ontinue Atorvastatin Calcium Tablet, 10 MG, TAKE 1 TABLET BY MOUTH EVERY DAY. * Procedure Codes: 9 9496 TRANS CARE MGMT 7 DAY DISCH * Preventive Medicine: Counseling: C are goal [...] tobacco use and urged to quit. 0 03/11/2025 * Follow Up: 1 Week (Reason: OV) * Images: * Sign off status: Completed true * Provider: Janee Armendariz MD Date: 0 03/11/2025 Generated for Toddi lj/Micki/eTransmitting on: 1 09/02/2024 12:02 PM EST History and Physical Notes * HPI (History of Present Illness) Category Sub-Category Detail Notes COVID-19 Screening Questions Have you had any new onset fever, chills, cough, congestion, sore throat, shortness of breath, muscle aches?: No Examination Category Sub-Category Detail Notes General Examination [...] sounds normal, no ascites, no organomegaly, no mass: morbid obesity NEUROLOGIC: alert and oriented, cranial nerves 2-12 grossly intact, deep tendon reflexes 2+ symmetrical, motor strength normal upper and lower extremities, sensory exam intact SKIN: no suspicious lesion s, anicteric PERIPHERAL PULSES: normal BREASTS: Not examined MUSCULOSKELETAL: extremities unremark able, no clubbing, cyanosis or edema LYMPH NODES: no enlarged lymph no milly,spleen normal RECTAL EXAM: The abscess has reso lved, anus was normal, She Chaim was . PSYCH: alert, oriented ORAL CAVITY: normal, unremarkable
--- OUTSIDE RECORDS SUMMARY | 2025-03-20 10:15 | XMS_ITS ---
Author Organization Bhanu Armendariz III, MD Address [address] [place] [address] Care Team Providers Care Creative Intern Name Role Phone Bhanu Armendariz III, MD Primary Care Provider Dr. Bhanu Armendariz III [facility] Allergies Allergen (clinical drug ingredient) Drug/Non [...] Date Provider Diagnosis Bhanu Armendariz III, MD [address] [place] [address] [facility] [address] 03/20/2025 Bhanu Armendariz Invasive ductal carcinoma of [...] Months, Reason: OV Provider Name:Bhanu Armendariz , 08/14/2025 04:00:00 PM, [address] [place] [address] [address], [place], [address], Provider Name:Bhanu Armendariz , 03/08/2026 02:00:00 PM, [address] [place] [address] [address] RE[address], [place], [address], Progress Notes * Angelia ROSS:10/19 (49 yo F)Acc No.[id number]:03/20/2025 Progress Notes Patient: Alexa LEMUS Provider: Janee Armendariz MD :1975 A ge:49 Y S ex:Female Date:03/20/2025 Address:[facility] [address] [facility], [id number] Pcp:Bhanu Armendariz III, MD Subjective: * Chief [...] E x-cigarette smoker S he was born [place], [place] and is single. 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 Smoking: No history of smoking. * Medications: [...] 0 03/20/2025 Generated for Beny calhoun/Micki/Jaleesa on: 09/02/2024 12:04 PM EST History and Physical Notes * [...]
--- OUTSIDE RECORDS SUMMARY | 2025-06-19 11:45 | XMS_ITS ---
Author Organization Bhanu Armendariz III, MD Address [address] [place] [address] [address] [facility] [facility] [place] [address] Care Team Providers Care Residential Sales Rep Name Role Phone Bhanu Armendariz III, MD Primary Care Provider [phone] Dr. Bhanu Armendariz III [facility] REASON FOR VISIT Follow up Social History Sex Assigned At : Social History Observation Description Sex Assigned At Female Encounters Encounter Location Date Provider Diagnosis Bhanu Armendariz III, MD [address] [place] [address] [address] [facility] [place] [address] 06/19/2025 Bhanu Armendariz Plan Of Treatment Next Appt Details Provider Name:Bhanu Armendariz , 08/14/2025 04:00:00 PM, [address] [place] [address] [place], [address], Provider Name:Bhanu Armendariz , 03/08/2026 02:00:00 PM, [address] [place] [address] [place], [address], Progress Notes * Alexa ROSSDOB:[birth year] (49 yo F)Acc No.[id number]:06/19/2025 Progress Notes Patient: Pardeep SIMAlexa [place] Provider: Janee Armendariz MD :1975 A ge:49 Y S ex:Female Date:06/19/2025 Address:[address] [place] , [id number] Pcp:Bhanu Armendariz III, MD Subjective: * Chief [...] Date: 08/20/2024 Generated for Beny calhoun/Micki/Catherinesmitting on: 09/02/2024 12:05 PM EST
--- OUTSIDE RECORDS SUMMARY | 2025-06-24 10:00 | XMS_ITS ---
Author Organization Bhanu Armendariz III, MD Address [address] [place] [address] Care Team Providers Care Professional Golf Tournament Player Name Role Phone Bhanu Armendariz III, MD Primary Care Provider [phone] Dr. Bhanu Armendariz III [facility] Allergies Allergen (clinical drug ingredient) Drug/Non [...] Problem Status W/U Status Risk Notes Problem [id number] Hyperglycemia (R73.9) Active confirmed Her fasting glucoses [...] Date Provider Diagnosis Bhanu Armendariz III, MD [address] [place] [address] [place] [address] 06/24/2025 Bhanu Armendariz Invasive ductal carcinoma of [...] future at the weight loss program at [facility]. 06/24/2025 Mixed hyperlipidemia (ICD-10 - E78.2) [...] I will have her see the pulmonary oracle identity management consultant to see if a better machine [...] Provider Name:Bhanu Armendariz , 08/14/2025 04:00:00 PM, [address] [place] [address] [address], [place], [address], Provider Name:Bhanu Armendariz , 03/08/2026 02:00:00 PM, [address] [place] [address] [address], [place], [address], Progress Notes * Alexa ROSSDOB:[birth year] (49 yo F)Acc No.[id number]:06/24/2025 Progress Notes Patient: Alexa LEMUS Provider: Janee Armendariz MD :1975 A ge:49 Y S ex:Female Date:06/24/2025 Address:[facility] [id number] Pcp:Bhanu Armendariz III, MD Subjective: * Chief [...] E x-cigarette smoker S he was born [place], [place] and is single. 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 Smoking: No history of smoking. * Medications: [...] future at the weight loss program at [facility]. 6 . M ixed hyperlipidemia - [...] I will have her see the pulmonary oracle identity management consultant to see if a better machine [...] Date: 08/25/2024 Generated for Beny calhoun/Micki/Thomitting on: 09/02/2024 12:04 PM EST History and [...]
--- OUTSIDE RECORDS SUMMARY | 2025-06-26 04:08 | XMS_ITS ---
Author Organization Bhanu Armendariz III, MD Address [address] [place] [address] [place] [address] Care Team Providers Care Transportation Museum Helper Name Role Phone Bhanu Armendariz III, MD Primary Care Provider Dr. Bhanu Armendariz III [facility] REASON FOR VISIT FYI only Social History Sex Assigned At : Social History Observation Description Sex Assigned At Female Encounters Encounter Location Date Provider Diagnosis Bhanu Armendariz III, MD [address] [place] [address] [place] [id number] 06/26/2025 Bhanu Armendariz Plan Of Treatment Next Appt Details Provider Name:Bhanu Armendariz , 08/14/2025 04:00:00 PM, [address] [place] [address] [place], [phone], Provider Name:Bhanu Armendariz , 03/08/2026 02:00:00 PM, [address] [place] [address] [place], [address], Progress Notes * Alxea ROSSDOB:[birth year] (49 yo F)Acc No.[id number]:06/26/2025 Patient: Pardeep MAYUR Alexa :1975 A ge:49 Y S ex:Female Address:[address] [place] [address] * true * Date: Generated for Printi ng/Faxing/eTransmitting on: 1 09/02/2024 12:04 PM EST
--- OUTSIDE RECORDS SUMMARY | 2025-06-26 12:45 | XMS_ITS ---
Author Organization Bhanu Armendariz III, MD Address [address] [place] [address] [address] [facility] [facility] [place] [address] Care Team Providers Care Optometry Professor Name Role Phone Bhanu Armendariz III, MD Primary Care Provider [phone] Dr. Bhanu Armendariz III [facility] REASON FOR VISIT Follow up Social History Sex Assigned At : Social History Observation Description Sex Assigned At Female Encounters Encounter Location Date Provider Diagnosis Bhanu Armendariz III, MD [address] [place] [address] [address] [facility] [place] [address] 06/26/2025 Bhanu Armendariz Plan Of Treatment Next Appt Details Provider Name:Bhanu Armendariz , 08/14/2025 04:00:00 PM, [address] [place] [address] [place], [address], Provider Name:Bhanu Armendariz , 03/08/2026 02:00:00 PM, [address] [place] [address] [place], [address], Progress Notes * Alexa ROSSDOB:[birth year] (49 yo F)Acc No.[id number]:06/26/2025 Progress Notes Patient: Pardeep SIMAlexa FERRER Provider: Janee Armendariz MD :1975 A ge:49 Y S ex:Female Date:06/26/2025 Address:[address] [place] , [id number] Pcp:Bhanu Armendariz III, MD Subjective: * Chief [...] Pending * Provider: Janee Armendariz MD Date: 08/27/2024 Generated for Beny calhoun/Micki/Catherinesmitting on: 09/02/2024 12:04 PM EST
--- OUTSIDE RECORDS SUMMARY | 2025-07-02 06:30 | XMS_ITS ---
Author Organization Bhanu Armendariz III, MD Address [address] [place] [address] Care Team Providers Care Engineer Sergeant Name Role Phone Bhanu Armendariz III, MD Primary Care Provider Dr. Bhanu Armendariz III [facility] Allergies Allergen (clinical drug ingredient) Drug/Non Drug Allergy documented on EMR Reaction Allergy Type Onset Date Status No Known Drug Allergy Unknown Drug Allergy Active No Known Food Allergy Unknown Drug Allergy Active REASON FOR VISIT Follow up Medications Medication SIG (Take, Route, Frequency, Duration) Notes Start Date End Date Status diazePAM 5 MG 1 tablet as needed O rally every 8 hours x 3 prior to surgery 06/24/2019 Active Atorvastatin Calcium 10 MG TAKE 1 TABLET BY MOUTH EVERY DAY Active hydrALAZINE HCl 10 MG TAKE 2 [...] 1 tablet Orally Once a day Active Zoloft 100 MG 1 tablet Orally Once a day Active Lupron Depot (1-Month) 7.5 MG as directed Intramuscular Ac tive Doxepin HCl 6 MG 1 tablet at bedtime Orally Once a day Active ARIPiprazole 5 MG 1 tablet Orally Once a day Active Multi Vitamin Active Social History Tobacco Use: Social History [...] smoker Vital Signs Temperature 97.3 degrees Fahrenheit 07/02/20 Heart Rate 73 /min 07/02/2025 Respiratory Rate 16 /min 07/02/2025 Height 66 in 07/02/2025 Weight 295 lbs 07/02/2025 BMI 47.61 kg/m2 07/02/2025 Oximetry 97 % 07/02/2025 Encounters Encounter Location Date Provider Diagnosis Bhanu Armendariz III, MD [address] [place] [address] [place] [address] 07/02/2025 Bhanu Armendariz Invasive ductal carcinoma of right breast C50.911 and Perianal abscess K61.0 Assessments Encounter Date Diagnosis (ICD Code) Assessment Notes Treatment Notes Treatment Clinical Notes 07/02/2025 Invasive ductal carcinoma of right breast (ICD-10 - C50.911) Her adjuvant endocrine therapy was continued. There is no sign of relapse at this time. There is no sign of a new primary. She has been compliant with her therapy and appointments. She was soon complete her fifth year of adjuvant endocrine therapy.She is taking anastrozole 1 mg daily. 07/02/2025 Perianal abscess (ICD-10 - K61.0) There is a recurrent abscess under the skin which is palpable in the gluteal fold under the left buttock. This is a recurrence of her previous infection that required incision and drainage. She has been sent to the emergency room. Plan Of Treatment Medication Medication Name Sig Start Date Stop Date Notes diazePAM 5 MG 1 tablet as needed O rally every 8 hours x 3 prior to surgery 06/24/2019 Atorvastatin Calcium 10 MG TAKE 1 TABLET BY MOUTH EVERY DAY hydrALAZINE HCl 10 MG TAKE 2 TABLETS BY MOUTH FOUR TIMES A DAY 90 DAYS Metoprolol Succinate ER 50 MG TAKE 1 TAB LET BY MOUTH TWICE A DAY Zepbound 7.5 MG/0.5ML 0.5 mL Subcutaneou s once a week 03/04/2025 Amoxicillin-Pot Clavulanate 875-125 MG Oral Sertraline HCl 100 MG 2 tablet Orally at bedtime oxyBUTYnin Chloride 5 MG 1 tablet Orally Twice a day metroNIDAZOLE 500 MG 1 tablet Orally Thr ee times a day 05/02/2021 Anastrozole 1 MG 1 tablet Orally Once a day Zoloft 100 MG 1 tablet Orally Once a day Lupron Depot (1-Month) 7.5 MG as directed Intramuscular Doxepin HCl 6 MG 1 tablet at bedtime Orally Once a day ARIPiprazole 5 MG 1 tablet Orally Once a day Multi Vitamin Next Appt Details Follow Up: 6 Weeks, Reason: ov no tests Provider Name:Bhanu Armendariz , 08/14/2025 04:00:00 PM, [address] [place] [address] KATHE REYES, [place], [address], Provider Name:Bhanu Armendariz , 03/08/2026 02:00:00 PM, [address] [place] [address] KAT[place] REYES, [place], [address], Progress Notes * Alexa ROSSDOB:[birth year] (49 yo F)Acc No.[id number]:07/02/2025 Progress Notes Patient: Alexa LEMUS Provider: Janee Armendariz MD :1975 A ge:49 Y S ex:Female Date:07/02/2025 Address:[address] [place] [address] [place], [id number] Pcp:Bhanu Armendariz III, MD Subjective: * Chief Complaints: * 1 . Follow up. * HPI: C OVID-19 Screening: on amox done sat. Questions H ave you had any new [...] of breath d enies. G astrointestinal: Constipation d enies. D ecreased appetite d enies.?Diarrhea d enies. [...] Depressed mood d enies. * Medical History: S plenomegaly, Ovarian mass, Migraines, Autoimmune hemolytic anemia, heterozygous factor V Leiden, 07/03 stage IER+TN+Ych-obhr-sdxxuvgi ductal carcinoma right breast, Granuloma annulare lower extremity, Thyroid pills: No current use of thyroid pills. * Surgical History: d ermoid cyst right ovary removed 09/2011, vaginal cyst removed 09/2011, right lumpectomy and sentinel node sampling for breast cancer 06/2019, Dental implant surgery , Dental surgery . * Hospitalization/Major Diagno stic Procedure: N o history . * Family History: F ather: alive 60 [...] E x-cigarette smoker S he was born [place], [place] and is single. 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 Smoking: No history of smoking. * Medications: T aking hydrALAZINE HCl 10 MG Tablet TAKE 2 TABLETS BY MOUTH FOUR TIMES A DAY 90 DAYS , Taking Metoprolol Succinate ER 50 MG Tablet Extended Release 24 Hour TAKE 1 TABLET BY MOUTH TWICE A DAY , Taking diazePAM 5 MG Tablet 1 tablet as needed Orally every 8 hours x 3 prior to surgery , Taking Multi Vitamin , Taking Zoloft 100 MG Tablet 1 tablet Orally Once a day , Taking Lupron Depot (1-Month) 7.5 MG Kit as directed Intramuscular , Taking Doxepin HCl 6 MG Tablet 1 tablet at bedtime Orally Once a day , Taking ARIPiprazole 5 MG Tablet 1 tablet Orally Once a day , Taking Sertraline HCl 100 MG Tablet 2 tablet Orally at bedtime , Taking oxyBUTYnin Chloride 5 MG Tablet 1 tablet Orally Twice a day , Taking metroNIDAZOLE 500 MG Tablet 1 tablet Orally Three times a day , Taking Anastrozole 1 MG Tablet 1 tablet Orally Once a day , Taking Zepbound 7.5 MG/0.5ML Solution Auto-injector 0.5 mL Subcutaneous once a week , Taking Atorvastatin Calcium 10 MG Tablet TAKE 1 TABLET BY MOUTH EVERY DAY , Taking Amoxicillin-Pot Clavulanate 875-125 MG Tablet Oral , Discontinued Amoxicillin- Pot Clavulanate 875-125 MG Tablet Oral , Medication List reviewed and reconciled with the patient * Allergies: N o Known Drug Allergy, No Known Food Allergy. Objective: * Vitals: H t: 66, Wt: 295, BMI:47.61, HR: 73, RR: 16, Temp: 97.3, Oxygen sat %: 97, Wt-k.81. * Examination: G eneral Examination: GENERAL APPEARANCE: p leasant, well nourished, well developed, in no acute distress, calm and relaxed. HEAD: a traumatic, normocephalic. EYES: e alysha, [...] to auscultation . BREASTS: no masses palpable bilaterally. ABDOMEN: b owel sounds normal, no ascites, no organomegaly, no mass. RECTAL EXAM: n ot examined. MUSCULOSKELETAL: e xtremities unremarkable, no clubbing, cyanosis or edema. PERIPHERAL PULSES: n ormal. NEUROLOGIC: a lert and oriented, cranial nerves 2-12 grossly intact, deep tendon reflexes 2+ symmetrical, motor strength normal upper and lower extremities, sensory exam intact. PSYCH: a lert, oriented. Assessment: * Assessment: 1. I nvasive ductal [...] taking anastrozole 1 mg daily. 2 . P erianal abscess - K61.0 N otes :There is a recurrent abscess under the skin which is palpable in the gluteal fold under the left buttock. This is a recurrence of her previous infection that required incision and drainage. She has been sent to the emergency room. Plan: * Treatment: [...] MOUTH EVERY DAY. * Procedure Codes: 9 4760 MEASURE BLOOD OXYGEN LEVEL * Preventive Medicine: Counseling: C are goal [...] Other reason not done * Follow Up: 6 Weeks (Reason: ov no tests) * Images: * The named appointment provid er may or may not be the originator of this progress note, and it is not deemed complete until electronically signed by the appointment provider. Sign off status: Pending * Provider: Janee Armendariz MD Date: 09/02/2024 Generated for Toddi lj/Micki/eTransmitting on: 09/02/2024 12:05 PM EST History and Physical Notes * HPI (History of Present Illness) Category Sub-Category Detail Notes COVID-19 Screening Questions Have you had any new onset fever, chills, cough, congestion, sore throat, shortness of breath, muscle aches?: No Examination Category Sub-Category Detail Notes General Examination GENERAL APPEARANCE: pleasant , well nourished, well developed, in no acute distress, calm and relaxed HEAD: atraumatic, normocep halic EYES: eomi, perrla, [...] PULSES: normal BREASTS: no masses palpable b ilaterally MUSCULOSKELETAL: extremities unremark able, no clubbing, cyanosis or edema LYMPH NODES: no enlarged lymph no milly,spleen normal RECTAL EXAM: not examined PSYCH: alert, oriented ORAL CAVITY: normal, unremarkable
--- NOTE | 2025-07-02 10:32 | AM.OFFVISNUR ---
Intake Visit Reasons: Perianal abscess Allergies No Known Allergies Allergy (Verified 06/26/25 06:37) Nursing Note Pt reports to the office for dressing change and packing of paxton-rectal abscess. Upon arrival, pt had removed the dressing and packing and showered before coming. Scant amount of drainage present. MONIQUE Jain also present to assess wound. Area is soft on palpation, no evidence of retained collection. Wound has a 2cm empty cavity with no evidence of tunnel. Pt states pain is much less. Cavity was lightly re-packed with 1/2 inch plain gauze, covered with 4x4 gauze pad, and anchored with cloth tape. Pt to return in 2 weeks and knows to call if she has any concerns before then. She will go back to work next week - half days for 3 days and then full days on 07/13/25. Coding Level of Care Code Established Pt Est Pt Level 1 (18421) Patient Type Established History Problem Focused Exam Problem Focused Medical Decision Making Straight Forward Time Spent (min) 15 Comment dressing change with re-packing
--- OUTSIDE RECORDS SUMMARY | 2025-07-02 12:03 | XMS_ITS | Patient Health Record ---
Author Organization [facility] Address [address] [place] [address] Care Team Providers Care Plumbing Designer Name Role Phone Bhanu Armendariz MD Primary Care Provider Unavailab Mia Shanks Unavailable [phone] Allergies No Known Allergies Reason For Referral [...] W/U Status Risk Notes Problem Tinea unguium ([id number]) Tinea unguium (B35.1) Active confirmed Chronic,Rx management (4) Vital Signs Blood pressure diastolic 81 mm Hg 01/29/2025 Height 5ft5in in 01/29/2025 Blood pressure systolic 124 mm Hg 01/29/2025 Weight 300 lbs 01/29/2025 BMI 49.92 kg/m2 01/29/2025 Encounters Encounter Location Date Provider Diagnosis [facility] [address] 01/29/2025 Mia Tian Tinea unguium B35.1 ; Pain in right toe(s) M79.674 and Pain in left toe(s) M79.[address] [address] 10/30/2024 Mia Tian [address] [address] 01/27/2025 Mia Tian Assessments Encounter Date Diagnosis (ICD Code) Assessment Notes Treatment Notes Treatment Clinical Notes Section Notes 01/29/2025 Tinea unguium (ICD-10 - B35.1) Chronic,Rx management (4) EBM Medical prescription ordered and faxed 01/29/2025 Pain in right toe(s) (ICD-10 - M79.674) 01/29/2025 Pain in left toe(s) (ICD-10 - M79.675) Plan Of Treatment Pending Test Test Name Order Date *Liver Function Test (LFT) 03/06/2022 68668-Yibgcqpx Plate 05/29/2022 98224-Nuenjkwl Plate 06/04/2023 28877- Debride <25 sq cm 06/12/2022 Next Appt Details Provider Name:iMa Tian , 07/23/2025 08:00:00 AM, [address] [place] [address], [id number], Insurance Providers Payer Name Payer Address Payer Phone Subscriber Number Group Number Insured Name Patient Relationship to Insured Coverage Start Date Coverage End Date [facility] [address] [place] [id number] Alexa Beauchamp Self - patient is the insured 5 Medical (General) History Medical History History ICD Code Anxiety Cancer Depression Diverticulosis Headaches/Migraines High blood pressure Chicken pox Transfusions Surgical History Surgery Date(Month/Year) lumpectomy 06/2019
--- OUTSIDE RECORDS SUMMARY | 2025-07-02 12:04 | XMS_ITS | Patient Health Record ---
Author Organization Bhanu Armendariz III, MD Address [address] [place] [address] [place] [address] Care Team Providers Care Leaf Coverer Name Role Phone Bhanu Armenadriz III, MD Primary Care Provider Dr. Bhanu Armendariz III Unavailable [phone] Allergies Allergen (clinical drug ingredient) Drug/Non Drug Allergy documented on EMR Reaction Allergy Type Onset Date Status No Known Drug Allergy Unknown Drug Allergy Active No Known Food Allergy Unknown Drug Allergy Active Results Component Value Reference Range Notes CT NG by PCR Reviewed date:02/22/2025 08:05:27 PM Interpretation: Performing Lab:[facility], [address] [place] [phone] Notes/Report: CT PCR NOT DETECTED Not Detect. [...] Panel Reviewed date:02/22/2025 08:05:27 PM Interpretation: Performing Lab:[facility], [address] [place] [phone] Notes/Report: Trichomonas vaginalis PCR NOT DETECTED Not [...] ONLY Reviewed date:03/08/2025 05:05:12 AM Interpretation: Performing Lab:[facility], [address] [place] [phone] Notes/Report: Lactic Acid-LAB USE ONLY 1.3 0.5-2.0 mmol/L CT abdomen pelvis w con Reviewed date:03/08/2025 05:05:12 AM Interpretation: Performing Lab: Notes/Report: [address] [place] [address] CT Scan Report Signed Patient: Alexa Zamora MR#: [id number] : 1975 Acct:[id number] Age/Sex: 49 / F ADM Date: 03/05/25 Loc: HO.ED Attending Dr: Ordering Physician: Lila Arizmendi MD Date of Service: 03/05/25 Procedure(s): CT abdomen pelvis w IV con Accession Number(s): [id number] cc: Bhanu Armendariz MD; Lila Arizmendi MD Report Number: [id number]: Total DLP = 1497.00 mGy-cm EXAMINATION: CT [...] in OV> 03/05/25952 DD/ 5 TD/TT: 03/05/25899 Cloth Folder Hand: [place] [address] CT Scan Report Signed Patient: Alexa Zamora MR#: [id number] : 1975 Acct:[id number] Age/Sex: 49 / F ADM Date: 03/05/25 Loc: HO.ED Attending Dr: Ordering Physician: Lila Arizmendi MD Date of Service: 03/05/25 Procedure(s): CT abd omen pelvis w IV con Accession Number(s): [id number] cc: Bhanu Armendariz MD; Lila Arizmendi MD Report Number: [id number]: Total DLP = 1497.00 mGy-cm EXAMINATION: CT [...] 03/05/25 0953 DD/ 0836 TD/TT: 03/05/25 0900 Cloth Folder Hand: Complete Blood Count no Diff Reviewed date:03/08/2025 05:05:12 AM Interpretation: Performing Lab:[facility], [address] [place] [phone] Notes/Report: White Blood Count 11.8 4.8-10.8 X10*3/uL [...] Panel Reviewed date:03/08/2025 05:05:12 AM Interpretation: Performing Lab:[facility], [address] [place] [phone] Notes/Report: Sodium 144 135-145 mmol/L Potassium 3.7 [...] Trough Reviewed date:03/08/2025 05:05:12 AM Interpretation: Performing Lab:[facility], [address] [place] [phone] Notes/Report: Vancomycin Trough 9.5 10.0-20.0 mcg/mL Complete Blood Count Auto Di ff Reviewed date:03/08/2025 05:05:12 AM Interpretation: Performing Lab:[facility], [address] [place] [phone] Notes/Report: White Blood Count 9.7 4.8-10.8 X10*3/uL [...] Creatinine Reviewed date:03/08/2025 05:05:12 AM Interpretation: Performing Lab:[address] [address] Notes/Report: Creatinine 0.71 0.5-1.4 mg/dL Creatinine Clr [...] ff Reviewed date:06/24/2025 03:05:53 PM Interpretation: Performing Lab:[facility], [address] [place] [phone] Notes/Report: White Blood Count 12.1 4.8-10.8 X10*3/uL [...] NRBC Abs Auto 0.000 0.0-0.012 X10*3/uL Comprehensive [place]. Panel Fa st Reviewed date:06/24/2025 03:05:53 PM Interpretation: Performing Lab:[facility], [address] [place] [phone] Notes/Report: Sodium 142 135-145 mmol/L Potassium 4.1 [...] Panel Reviewed date:06/24/2025 03:05:53 PM Interpretation: Performing Lab:[facility], [address] [place] [phone] Notes/Report: Triglycerides 340 <150 mg/dL Desirable Triglyceride: [...] low results in patients with liver disease. Complete Blood Count Auto Di ff Reviewed date:06/26/2025 08:10:11 PM Interpretation: Performing Lab:[facility], [address] [place] [phone] Notes/Report: White Blood Count 14.5 4.8-10.8 X10*3/uL Red Blood Count 4.42 4.20-5.50 X10*6/uL Hemoglobin 12.5 12.0-16.0 g/dl Hematocrit 37.7 37.0-47.0 % Mean Corpuscular Volume 85.3 80.0-98.0 fL Mean Corpuscular Hemoglobin 28.3 27.0-33.0 pg Mean Corpuscular HGB Conc 33.2 31.0-35.0 g/dl Red Cell Distribution Width 13.7 11.0-16.0 % Platelet Count 253 160-400 X10*3/uL Mean Platelet Volume 9.6 9.4-12.3 fL Neutrophils Percent Auto 82.8 45-73 % Imm Gran Pct Auto 0.7 0.0-0.4 % Lymphocytes Percent Auto 9.5 20-40 % Monocytes Percent Auto 5.5 2-11 % Eosinophils Percent Auto 1.3 0-4 % Basophils Percent Auto 0.2 0-2 % NRBC Pct Auto 0.0 0.0-0.2 /100WBC Neutrophils Absolute Auto 12.0 2.0-8.3 x10*3/uL Imm Gran Abs Auto 0.10 0.00-0.03 X10*3/uL Lymphocytes Absolute Auto 1.4 1.2-4.9 X10*3/uL Monocytes Absolute Auto 0.8 0.1-1.2 X10*3/uL Eosinophils Absolute Auto 0.2 0.0-0.4 X10*3/uL Basophils Absolute Auto 0.0 0.0-0.2 X10*3/uL NRBC Abs Auto 0.000 0.0-0.012 X10*3/uL Comprehensive Met. Panel Reviewed date:06/26/2025 08:10:11 PM Interpretation: Performing Lab:[facility], [address] [place] [phone] Notes/Report: Sodium 139 135-145 mmol/L Potassium 3.5 3.3-5.1 mmol/L Chloride 105 96-108 mmol/L Carbon Dioxide 24 22-29 mmol/L Anion Gap 14 12-20 Blood Urea Nitrogen 11 9-16 mg/dL Creatinine 0.65 0.5-1.4 mg/dL Creatinine Clr Calc Pharmacy 149.7 Provided height and weight: 165.1 cm, 136.078 kg. eGFR (calculated from the MDRD study equation) and eCrCl (calculated from the Cockcroft-Gault equation) are based on different parameters and may not yield comparable results. If eCrCl result is absurd, please check patient's height/weight. Estimated Glomerular Filt Rate > 60 Chronic Kidney Disease: Estimated GFR < 60 mL/min/1.73m2 Severe Kidney Disease: Estimated GFR < 15 mL/min/1.73m2 Glucose Random 280 60-115 mg/dL Calcium 9.3 8.4-10.2 mg/dL Bilirubin Total 0.4 0.0-1.0 mg/dL Aspartate Amino Transferase 22 5-31 U/L Alanine Aminotransferase 21 0-31 U/L Total Protein 7.1 6.5-8.0 g/dL Albumin Level 4.0 3.5-5.0 g/dL Alkaline Phosphatase 110 39-117 U/L Lactic Acid Reviewed date:06/26/2025 08:10:11 PM Interpretation: Performing Lab:[address] [address] Notes/Report: Lactic Acid 2.2 0.5-2.0 mmol/L Critical value for test(s): LACTIC Results called to and read back by: SUNDEEP Person calling: GRETAA Date: 06/26/25 Time: 0838 Gram stain Reviewed date:07/02/2025 06:46:51 AM Interpretation: Performing Lab:[address] [address] Notes/Report: Gram stain Gram stain results: Gram stain 4+ polys Gram stain 4+ red blood cells Gram stain 3+ Gram-positive cocci Gram stain 3+ Gram-negative rods Routine Culture Reviewed date:07/02/2025 06:46:51 AM Interpretation: Performing Lab:[address] [address] Notes/Report: Routine Culture Report - external Routine Culture 3+ Mixed gastrointestinal mendy Blood Culture (First) Reviewed date:07/02/2025 06:46:51 AM Interpretation: Performing Lab:[address] [address] Notes/Report: Blood Culture (First) No growth after 5 days. Blood Culture (Second) Reviewed date:07/02/2025 06:46:51 AM Interpretation: Performing Lab:[address] [address] Notes/Report: Blood Culture (Second) No growth after 5 days. Lactic Acid-LAB USE ONLY Reviewed date:06/26/2025 08:10:11 PM Interpretation: Performing Lab:[address] [address] Notes/Report: Lactic Acid-LAB USE ONLY 1.4 0.5-2.0 mmol/L CT pelvis w con Reviewed date:06/26/2025 08:10:11 PM Interpretation: Performing Lab: Notes/Report: [address] [address] [address] Scan Report Signed Patient: Alexa Zamora MR#: [id number] : 1975 Acct:[id number] Age/Sex: 49 / F ADM Date: 06/26/25 Loc: .ED Attending Dr: Ordering Physician: Govind Arora DO Date of Service: 06/26/25 Procedure(s): CT pelvis w IV con Accession Number(s): [id number] cc: Bhanu Armendariz MD; Govind Arora DO Report Number: [id number]: Total DLP = 478.00 mGy-cm Reason for Exam: Left perianal abscess EXAMINATION: CT PELVIS WITH CONTRAST CLINICAL INFORMATION: Left perianal abscess. Evaluate. COMPARISON: CT abdomen and pelvis 03/05/2025. TECHNIQUE: Helical scanning was performed with submillimeter collimation through the pelvis with the use of oral contrast and during bolus intravenous injection of 85 mL of Omnipaque 350 intravenous contrast. Sagittal and coronal multiplanar 2-D reconstructions were obtained. This CT examination was performed using dose optimization techniques as appropriate, variously including the following: *Automated exposure control *Adjustment of mA and/or kV according to patient size (this includes techniques or standardized protocols for targeted exams where dose is matched to indication/reason for exam; i.e. extremities or head) *Use of iterative reconstruction technique FINDINGS: There is a left perianal abscess present measuring 7.7 cm in AP, by 4.6 cm in transverse, by 4.2 cm in craniocaudad dimension. This involves the left gluteal fold in the paramedian region, and extends to the anal verge with no distinct fat plane intervening. A perianal sinus tract cannot be excluded. There is associated surrounding inflammatory change. Above the levator sling, there is no definite involvement or inflammation. No definite extension cranial to the anal verge is evident. No involvement of the mesorectal fat. Urinary bladder, uterus, adnexal structures, appendix, and imaged bowel structures are normal. Rare sigmoid colonic diverticula. No vascular abnormality. No free intraperitoneal air or ascites. No suspicious focal bony abnormalities. Degenerative changes of the right greater than left SI joints is noted. CT/CT pelvis w IV con IMPRESSION: 1. Left perianal abscess measuring 7.7 x 4.6 x 4.2 cm extending to the left anal verge. There may be a sinus tract in this location. No definite involvement above the levator sling or above the anal verge is present. 2. Remainder of the examination is normal. Electronically signed by: Raoul Palacios MD 06/26/2025 09:21 AM [facility] Dictated By: Raoul Palacios MD Signed By: <Electronically signed by Roaul Palacios MD in OV> 06/26/25 0921 DD/ 0857 TD/TT: 06/26/25 0908 Cloth Folder Hand: [address] [address] [address] Scan Report Signed Patient: Alexa Zamora MR#: [id number] : 1975 Acct:[id number] Age/Sex: 49 / F ADM Date: 06/26/25 Loc: HO.ED Attending Dr: Ordering Physician: Govind Arora DO Date of Service: 06/26/25 Procedure(s): CT pel vis w IV con Accession Number(s): [id number] cc: Bhanu Armendariz MD; Govind Arora DO Report Number: [id number]: Total DLP = 478.00 mGy-cm Reason for Exam: Lef t perianal abscess EXAMINATION: CT PELVIS WITH CONTRAST CLINICAL INFORMATION: Left perianal absces s. Evaluate. COMPARISON: CT abdomen and pelvi s 03/05/2025. TECHNIQUE: Helical scanning was performed with submillimeter collimation through the pelvis with the use of oral contrast and during bolus intravenous injection of 85 mL o f Omnipaque 350 intravenous contrast. Sagittal and coronal multiplanar 2-D reconstructions were obtained. This CT examination was performed using dose optimization techniques as appropriate, various ly including the following: *Automated exposure control *Adjustment of mA an d/or kV according to patient size (this includes techniques or standardized protocols for targeted exams where dose is matched to indication/reason for exam; i.e. extremities or head) *Use of iterative reconstruction technique FINDINGS: There is a left paxton anal abscess present measuring 7.7 cm in AP, by 4.6 cm in transverse, by 4.2 cm in craniocaudad dimension. This involves the left gluteal fol d in the paramedian region, and extends to the anal verge with no distin ct fat plane intervening. A perianal sinus tract cannot be excluded. There is associated surrounding inflammatory change. Above the levator sl ing, there is no definite involvement or inflammation. No definite extension cranial to the anal verge is evident. No involvem ent of the mesorectal fat. Urinary bladder, lower brule alejandra, adnexal structures, appendix, and imaged bowel structures are zach l. Rare sigmoid colonic diverticula. No vascular abnormality. No free intraperiton eal air or ascites. No suspicious focal bony abnormalities. Degenerative changes of the right greater than l eft SI joints is noted. C T/CT pelvis w IV con IMPRESSION: 1. Left perianal abs cess measuring 7.7 x 4.6 x 4.2 cm extending to the left anal verge. The re may be a sinus tract in this location. No definite involvement above the levator sling or above the anal verge is present. 2. Remainder of the examination is normal. Electronically francois d by: Raoul Palacios MD 06/26/2025 09:21 AM EST Dictated By: Raoul Palacios MD Signed By: <Electronically signed by Raoul Palacios MD in OV> 06/26/25920 DD/ 6 TD/TT: 06/26/25907 Cloth Folder Hand: Reason For Referral Reason Urgent Appointment R equest Consult and Treat Diagnosis 1 Anal abscess (K61.0) Referral Organization Bhanu Armendariz III, MD Referring Provider First Name Bhanu Referring Provider Last Name Marcello Referring Provider Speciality Internal M edicine Referred Provider Anam Wallis Referred Provider Specialty General Surg domo General Notes D, Etta 03/20/2025 03:31:40 PM > Per patient the issue has resolved and no longer needs this referral. Stated she was treated in the hospital Referral Priority Urgent Medications Medication SIG (Take, Route, Frequency, Duration) Notes Start Date End Date Status diazePAM 5 MG 1 tablet as needed O rally every 8 hours x 3 prior to surgery 06/24/2019 Active Multi Vitamin Active Atorvastatin Calcium 10 MG TAKE 1 TABLET BY MOUTH EVERY DAY Active Zoloft 100 MG 1 tablet Orally Once a day Active Lupron Depot (1-Month) 7.5 MG as directed Intramuscular Ac tive Doxepin HCl 6 MG 1 tablet at bedtime Orally Once a day Active ARIPiprazole 5 MG 1 tablet Orally Once a day Active Amoxicillin-Pot Clavulanate 875-125 MG Oral Activ e Sertraline HCl 100 MG 2 tablet Orally at bedtime Active oxyBUTYnin Chloride 5 MG 1 tablet Orally Twice a day Active metroNIDAZOLE 500 MG 1 [address] Thr ee times a day 05/02/2021 Active hydrALAZINE HCl 10 MG TAKE 2 TABLETS BY MOUTH FOUR TIMES A DAY 90 DAYS Active Anastrozole 1 MG 1 tablet Orally Once a day Active Metoprolol Succinate ER 50 MG TAKE 1 TABLET BY MOUTH TWICE A DAY Active Zepbound 7.5 MG/0.5ML 0.5 mL Subcutaneou s once a week 03/04/2025 Active Immunizations Vaccine Route Administration Date Status [...] Problem Status W/U Status Risk Notes Problem 3299572 Former smoker (Z87.891) Active confirmed She has a strategy mapped out to prevent relapse in times of stress and illness. Problem 599767499 Anemia (D64.9) Active confirmed There was no evidence for hemolysis today. Problem 67563546 Hyperglycemia (R73.9) Active confirmed Her fasting glucoses 152 in the context of an active abscess. Clearly she is prediabetic and likely has become diabetic. This value will be repeated with a hemoglobin A1c after the infection has resolved. If necessary she will be treated with a hypoglycemic agent. She is an excellent candidate for semaglutide. Problem Acquired hemolytic anemia (9351718) Acquired hemolytic anemia, unspecified (D59.9) Active confirmed She is not jaundiced. She does not appear anemic. Comprehensive blood work has been ordered. This problem has not relapsed. Problem 739675655 Mixed hyperlipidemia (E78.2) Active confirmed Her recent fasting cholesterol has increased to 210. The triglycerides are 340. She has gained 9 pounds. We have discussed diet and nutrition at length today. These values will be repeated. Problem 836510027 Acquired hypothyroidism (E03.9) Active confirmed She was continued on current therapy. Blood work will be done in detail in the near future at the weight loss program at [facility]. Problem 10700210 Essential hypertension (I10) Active confirmed Her blood pressure was in the normal range today at 128/80. No change in regimen was needed. I recommended sodium restriction and aggressive weight loss with regular exercise. Problem 68480755 Obstructive sleep apnea (G47.33) Active confirmed She has a CPAP device which she has not been using as it is not comfortable. After the perianal abscess issue is resolved I will have her see the pulmonary clinical application consultant to see if a better machine or mask can be provided. 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 There is no sign of relapse at this time. There is no sign of a new primary. She has been compliant with her therapy and appointments. She was soon complete her fifth year of adjuvant endocrine therapy.She is taking anastrozole 1 mg daily. Problem 190692481 Factor V Leiden mutation (D68.51) Active confirmed She has had no episodes of blood clotting. Her father has a Leiden mutation and one episode of clotting. Problem 461369436 Morbid obesity (E66.01) Active confirmed She has gained 9 pounds. Her blood glucose is now 150 her cholesterol is 210 and her triglycerides are 340. Her liver function tests are slightly elevated which is likely steatosis. She is a good candidate for GLP-1 drug. I will continue to work with her try to have her enter a bariatric program. Problem 94460369 Perianal abscess (K61.0) Active confirmed There is a recurrent abscess under the skin which is palpable in the gluteal fold under the left buttock. This is a recurrence of her previous infection that required incision and drainage. She has been sent to the emergency room. Vital Signs Heart Rate 73 /min 07/02/2025 Temperature 97.3 degrees Fahrenheit 07/02/2025 Respiratory Rate 16 /min 07/02/2025 Oximetry 97 % 07/02/2025 Blood pressure diastolic 83 mm Hg 06/24/2025 Height 66 in 07/02/2025 Blood pressure systolic 138 mm Hg 06/24/2025 Weight 295 lbs 07/02/2025 BMI 47.61 kg/m2 07/02/2025 Encounters Encounter Location Date Provider Diagnosis Bhanu Armendariz III, MD [address] [place] [address] [place] [address] 07/02/2025 Bhanu Hollidayne Invasive ductal carcinoma of right breast C50.911 and Perianal abscess K61.0 Bhanu Armendariz III, MD [address] [place] [address] [place] [address] 08/11/2024 Bhanu Hollidayne Invasive ductal carcinoma of right breast C50.911 ; Mixed hyperlipidemia E78.2 ; Morbid obesity E66.01 ; Factor V Leiden mutation D68.51 ; Former smoker Z87.891 ; Acquired hypothyroidism E03.9 and Obstructive sleep apnea G47.33 Bhanu Armendariz III, MD [address] [place] [address] [place] [address] 03/04/2025 Bhanu Hollidayne Invasive ductal carcinoma of right breast C50.911 ; Morbid obesity E66.01 ; Former smoker Z87.891 ; Factor V Leiden mutation D68.51 ; Acquired hypothyroidism E03.9 and Perianal abscess K61.0 Bhanu Armendariz III, MD [address] [place] [address] [place] [address] 03/11/2025 Bhanu Hollidayne Invasive ductal carcinoma of right breast C50.911 ; Perianal abscess K61.0 ; Factor V Leiden mutation D68.51 ; Former smoker Z87.891 ; Acquired hypothyroidism E03.9 ; Mixed hyperlipidemia E78.2 ; Obstructive sleep apnea G47.33 and Acquired hemolytic anemia, unspecified D59.9 Bhanu Armendariz III, MD [address] [place] [address] [place] [address] 03/20/2025 Bhanu Hollidayne Invasive ductal carcinoma of right breast C50.911 ; Perianal abscess K61.0 ; Anemia D64.9 ; Mixed hyperlipidemia E78.2 ; Morbid obesity E66.01 ; Former smoker Z87.891 and Factor V Leiden mutation D68.51 Bhanu Armendariz III, MD [address] [place] [address] [place] [address] 06/24/2025 Bhanu Armendariz Invasive ductal carcinoma of right breast C50.911 ; Perianal abscess K61.0 ; Factor V Leiden mutation D68.51 ; Former smoker Z87.891 ; Acquired hypothyroidism E03.9 ; Mixed hyperlipidemia E78.2 ; Morbid obesity E66.01 ; Essential hypertension I10 ; Acquired hemolytic anemia, unspecified D59.9 ; Obstructive sleep apnea G47.33 and Hyperglycemia R73.9 Bhanu Armendariz III, MD [address] [place] [address] [place] [address] 12/17/2024 Bahnu Armendariz III, MD [address] [place] [address] [place] [address] 03/05/2025 Bhanu Armendariz III, MD [address] [place] [address] [place] [address] 03/06/2025 Bhanu Armendariz III, MD [address] [place] [address] [place] [address] 06/26/2025 Bhanu Armendariz Assessments Encounter Date Diagnosis (ICD Code) Assessment Notes Treat ment Notes Treatment Clinical Notes 07/02/2025 Invasive ductal carcinoma of right breast (ICD-10 - C50.911) Her adjuvant endocrine therapy was continued. There is no sign of relapse at this time. There is no sign of a new primary. She has been compliant with her therapy and appointments. She was soon complete her fifth year of adjuvant endocrine therapy.She is taking anastrozole 1 mg daily. 08/11/2024 Mixed hyperlipidemia (ICD-10 - E78.2) Current [...] has been sent to the emergency room. 07/02/2025 Perianal abscess (ICD-10 - K61.0) There [...] future at the weight loss program at [facility]. 03/11/2025 Acquired hypothyroidism (ICD-10 - E03.9) She was continued on current therapy. Blood work will be done in detail in the near future at the weight loss program at [facility]. 03/20/2025 Morbid obesity (ICD-10 - E66.01) I will continue my aggressive attempts to help her lose weight. 06/24/2025 Acquired hypothyroidism (ICD-10 - E03.9) She was continued on current therapy. Blood work will be done in detail in the near future at the weight loss program at [facility]. 08/11/2024 Acquired hypothyroidism (ICD-10 - E03.9) She was continued on current therapy. Blood work will be done in detail in the near future at the weight loss program at [facility]. 03/04/2025 Perianal abscess (ICD-10 - K61.0) This [...] I will have her see the pulmonary clinical application consultant to see if a better machine [...] Provider Name:Bhanu Armendariz , 08/14/2025 04:00:00 PM, [address] [place] [address] K[place] REYES, [place], [address], Provider Name:Bhanu Armendariz , 03/08/2026 02:00:00 PM, [facility] [place]YES, [place], [address], Insurance Providers Payer Name Payer Address Payer Phone Subscriber Number Group Number Insured Name Patient Relationship to Insured Coverage Start Date Coverage End Date 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
== END 2025-07-02 10:15 | disposition home or self-care (01) ==
LOC: HO.HGS 09:52
PROVIDERS: PCP Internal Medicine Medical Oncology; Visit Provider Physician Assistant Surgical
DX: K61.0 Anal abscess (principal)

== ENCOUNTER → 2025-07-02 09:51 | Outpatient (BNVA) | payer OTHER, SELFPAY | PROVIDERS: PCP Internal Medicine Medical Oncology; Visit Provider Physician Assistant Surgical | DX: K61.0 Anal abscess (principal) | CPT/HCPCS: 99211 ==